=== PATIENT | female | born 1955 | race Caucasian/White ===

== ENCOUNTER → 2024-02-13 | Outpatient (CLI) | payer MEDICARE, MEDICAID, SELFPAY ==
[2024-02-13 16:27] LABS: OBS Card Expiration Date 2026-09; OBS Card Lot # 23001; OBS QC OK? Yes
[2024-02-13 20:34] LABS: OBS Developer Lot # 23003; OBS Performed By GGC; Occult Blood, Stool Negative (Negative); Occult Blood, Stool #2 Negative (Negative); Occult Blood, Stool #3 Negative (Negative)
== END | disposition home or self-care (01) ==
LOC: SLDO 16:19
PROVIDERS: PCP Physician Assistant; Referring Provider Physician Assistant; Visit Provider Physician Assistant
DX: Z12.11 Encounter for screening for malignant neoplasm of colon (principal)
CPT/HCPCS: 82270

== ENCOUNTER 2024-05-07 17:23 | Inpatient (IN) | payer MEDICARE, MEDICAID, SELFPAY ==
[2024-05-07] VITALS (18 sets, daily range): BP systolic 98–174; BP diastolic 60–135; PULSE 90–140; RESP 17–330; TEMP 36.6–37.2; O2SAT 93–100; BMI 21.8
--- NOTE | 2024-05-07 17:46 | XR_ITS ---
Examination: AP lateral soft tissue neck 2 views TECHNIQUE: AP lateral soft tissue neck 2 views Standing time: May 07, 2024 1757 hours INDICATIONS: Difficulty swallowing today FINDINGS: Normal epiglottis Prevertebral soft tissue is prominent at the C7 level, 18 mm No distention of hypopharynx No opaque foreign body Prominent cervicothoracic levoscoliosis IMPRESSION: Prominent prevertebral soft tissue Consider CT soft tissue neck post intravenous contrast follow-up
--- NOTE | 2024-05-07 17:46 | XR_ITS ---
Examination: AP and lateral chest 2 views TECHNIQUE: AP upright and lateral chest 2 views Presented time: May 07, 2024 1756 hours Comparison 01/04/2022. FINDINGS: Coughing and shortness of breath today. FINDINGS: Normal heart size No aspiration pneumonia Old fracture proximal right humerus No pulmonary edema IMPRESSION: Negative for aspiration pneumonia
--- NOTE | 2024-05-07 17:48 | PD.EDDENTL ---
ED Dental RME/HPI General Chief complaint: Dental/Oral/Throat Stated complaint: Choking on meat Time Seen by Provider: 05/07/24 17:38 Arrival date/time: 05/07/24 17:23 RME / HPI RME / HPI Narrative: 69-year-old female patient with significant history of mental retardation, was brought in by her caregiver for food gets stuck in the throat. Patient was eating dinner, swallowed a big piece of meat without chewing. Patient was noted to be choking, caregiver tried to do Heimlich maneuver, with no success. Currently patient is able to talk but with hoarseness of voice. Denies any coughing denies any vomiting denies any similar episode in the past medication was given prior to arrival. Related Data Home Medications ?Medication ?Instructions ?Recorded ?Confirmed calcium 600 mg (as carbonate)-vit 1 tab PO BID 10/06/17 05/31/21 D3 10 mcg (400 unit) chewable tablet (Calcium 600 with Vitamin D3) divalproex 500 mg tablet,extended 1,000 mg PO HS 10/06/17 05/31/21 release 24 hr mirtazapine 45 mg tablet 45 mg PO HS 10/06/17 05/31/21 alendronate 70 mg tablet 70 mg PO QWEEK 03/07/21 05/30/21 valbenazine 80 mg capsule 80 mg PO QDAY 03/07/21 05/31/21 (Ingrezza) docusate sodium 250 mg capsule 250 mg PO QDAY 05/30/21 05/31/21 quetiapine 300 mg tablet,extended 300 mg PO QPM 05/30/21 05/31/21 release 24 hr Previous Rx's ?Medication ?Instructions ?Recorded ondansetron 4 mg disintegrating 4 mg PO Q8H #10 tabs 12/31/21 tablet Allergies Allergy/AdvReac Type Severity Reaction Status Date / Time No Known Allergies Allergy Verified 08/02/21 13:29 Review of Systems Review of Systems Narrative Review of Systems: Review of system reviewed and within normal limits except mentioned in HPI ED Exam Narrative Physical exam: VITAL SIGNS: Reviewed. GENERAL APPEARANCE: Alert and interactive, follows commands, no acute distress, HEAD AND FACE: Non-traumatic. ENT: PERRL, pink conjunctivitis, eyelid no trauma, Mucous membrane moist. NECK: Supple, nontender, no nuchal rigidity. CHEST: No tenderness, no crepitus, no paradoxical movement, no retractions. LUNGS: Clear, well ventilated, symmetric, no rales, no wheezing, no ronchi, no stridor, good breath sounds bilaterally. HEART: Regular rate, regular rhythm, no murmur, no gallops. ABDOMEN: Soft, positive bowel sounds, nondistended, no guarding, nontender, no rebound, no masses, RECTAL: Deferred. GENITAL: Deferred. NEUROLOGICAL: Gross motor function intact sensory function intact, Appropriate for age. MUSCULOSKELETAL: low back nontender, full range of motion. EXTREMITIES: Nontender, full range of motion. SKIN: Color pink, dry, no rash, no lacerations, no abrasions, no contusions. LYMPHATICS: Deferred. Course Quality Measures none Orders Category Date Time Status Bedside COVID-19 Antigen Test NOW Care 05/07/24 20:00 Active COVID-19 Screening Questionnaire NOW Care 05/07/24 19:40 Active COVID-19 Screening Questionnaire NOW Care 05/07/24 21:48 Active Decision to Admit X1 Care 05/07/24 19:40 Completed Decision to Admit X1 Care 05/07/24 21:48 Active Endoscopy Consents .On arrival Care 05/07/24 20:26 Active NPO NOW Care 05/07/24 19:32 Active NPO NOW Care 05/07/24 20:26 Active Consult to Gastroenterology Stat Cons 05/07/24 18:42 Ordered Diet NPO (NOW) Diet 05/07/24 19:32 Completed Diet NPO (NOW) Diet 05/07/24 20:26 Active XR chest 2V Stat Exams 05/07/24 17:46 Completed XR soft tissue neck Stat Exams 05/07/24 17:46 Completed CBC [CBC] Stat Lab 05/07/24 18:10 Completed CMP [Comprehensive Metabolic Panel] Stat Lab 05/07/24 18:10 Completed PTT [Partial Thromboplastin Time] Stat Lab 05/07/24 18:10 Completed Diazepam Inj [Valium Inj] Med 05/07/24 19:39 Discontinued 5 mg IVP X1 ONE Glucagon Inj Med 05/07/24 17:46 Discontinued 2 mg IVP X1 ONE Metoclopramide Inj [Reglan Inj] Med 05/07/24 18:41 Discontinued 10 mg IVP X1 ONE Sodium Chloride 0.9% 1000 ml [Ns] 1,000 ml Med 05/07/24 17:47 Discontinued IV 999 mls/hr Vital Signs Vital signs: Vital Signs Temperature 98.7 F 05/07/24 17:38 Pulse Rate 115 H 05/07/24 17:38 Respiratory Rate 20 05/07/24 17:38 Blood Pressure 130/70 05/07/24 17:38 Pulse Oximetry (%) 93 L 05/07/24 17:38 Oxygen Delivery Method Room Air 05/07/24 17:38 Dental / Oral MDM Narrative MDM Narrative:: 69-year-old female patient with significant history of mental retardation, was brought in by her caregiver for food gets stuck in the throat. Patient was eating dinner, swallowed a big piece of meat without chewing. Patient was noted to be choking, caregiver tried to do Heimlich maneuver, with no success. Currently patient is able to talk but with hoarseness of voice. Denies any coughing denies any vomiting denies any similar episode in the past medication was given prior to arrival. Chest x-ray came back unremarkable. X-ray of the neck also showed Prominent prevertebral soft tissue Consider CT soft tissue neck post intravenous contrast follow-up. Laboratory workup came back normal. Patient received IV fluids, IV glucagon, and Valium, still not able to pass out liquid oral. I consulted Dr. Mcdonald, GI specialist, who will scope the patient tomorrow morning. Patient data External records reviewed:: None Clinical information provided by:: none Social determinants that could affect healthcare access:: none Patient has the following chronic illnesses:: History of mental retardation, schizophrenia, seizure disorder How is presenting disease/condition affected by chronic disease/condition?: exacerbated by Evaluation data The following diagnostics were reviewed and interpreted by me:: lab results and radiology exam(s) Lab and/or radiology exams considered but not ordered:: None Interpretation Summary: See results MDM Medications / Prescriptions Medications or Prescriptions considered but not ordered:: None Medication administrations:: Medication Administration History Discontinued Medications Diazepam (Diazepam Inj 5 Mg/Ml Vial 2 Ml) 5 mg IVP X1 ONE Stop: 05/07/24 19:40 Last Admin: 05/07/24 19:50 Dose: 5 mg Documented By: TC Glucagon (Glucagon Inj 1 Mg Vial) 2 mg IVP X1 ONE Stop: 05/07/24 17:47 Last Admin: 05/07/24 18:26 Dose: 2 mg Documented By: GM Sodium Chloride (Ns) 1,000 mls @ 999 mls/hr IV .Q1H1M ONE Stop: 05/07/24 18:47 Last Admin: 05/07/24 18:33 Dose: 999 mls/hr Documented By: GM Metoclopramide HCl (Metoclopramide Inj 5 Mg/Ml Vial 2 Ml) 10 mg IVP X1 ONE; Protocol Stop: 05/07/24 18:42 Last Admin: 05/07/24 19:30 Dose: 10 mg Documented By: TC None Consultations Consultation(s) initiated? (list below): No Diagnosis Dental Differential Diagnosis: other (Foreign body, esophagus, dysphagia, odynophagia) Most likely diagnosis given after review of the tests above:: Foreign body esophagus Admission Indicated Admission indicated?: indicated Explain why admission is indicated or not indicated:: Patient is to be admitted for endoscopic removal of foreign body in the esophagus Admission Request Was there a request for admission?: Yes Admission Attestation Admission request attestation: Discussed case with Hospitalist service regarding admission. Discussed patients ED course, exam findings, labs, and radiology results. The Hospitalist [agrees,] to accept the patient for admission. Disposition Plan Disposition Plan: Admit Discharge Plan Plan Patient Disposition: Admit Acute Care w/in Hospital Prescriptions/Referrals Prescriptions/Med Rec: No Action divalproex 500 mg Tablet Extended Release 24 Hr 1,000 mg PO HS mirtazapine 45 mg Tablet 45 mg PO HS Calcium 600 with Vitamin D3 600 mg(1,500mg) -400 unit Tablet,Chewable 1 tab PO BID docusate sodium 250 mg Capsule 250 mg PO QDAY quetiapine 300 mg Tablet Extended Release 24 Hr 300 mg PO QPM alendronate 70 mg Tablet 70 mg PO QWEEK Ingrezza 80 mg Capsule 80 mg PO QDAY ondansetron 4 mg tablet,disintegrating 4 mg PO Q8H Qty: 10 0RF Referrals: Dori Ruiz [Primary Care Provider] - In 1 week Problem List Clinical Impression: Esophageal foreign body Patient/Caregiver Discharge Instructions Print Language: Armenian Stand Alone Forms: Zenaida Award Info., Patient Portal Info Letter
--- NOTE | 2024-05-07 18:10 | PC.NURSE ---
PT COMING FROM [facility]; PER CAREGIVER, PT WAS EATING WHEN A PIECE OF MEAT GOT STUCK IN HER THROAT. PT HAS A LOT OF FOAM COMING OUT OF HER MOUTH AND DOES NOT SOUND CLEAR WHEN SHE TALKS; WHEN SHE TALKS, SHE SOUNDS CLEAR BUT NOW IT SOUNDS VERY GURGGLY. SHE TRIED TO DRINK SOMETHING TOO BUT IT CAME OUT LIKE A STREAM OUT OF HER MOUTH FOLLOWED WITH THE WHITE FOAM. PT HAS HX OF BEING DEVELOPMENTALLY DELAYED AND SCHIZOPHRENIA. PT CONNECTED TO MONITORS AT THIS TIME.
[2024-05-07] MEDS: GLUCAGON INJ 1 MG VIAL 2 MG IVP (18:26)
[2024-05-07] MEDS: SODIUM CHLORIDE 0.9% 1000 ML 1,000 ML 999 ML IV (18:33)
--- NOTE | 2024-05-07 18:41 | PC.NURSE ---
PT INITALLY SATTING TO 99% ON RA; AT THIS TIME, PT DESATTING TO 88% ON RA. Kristel EPSTEIN SUPERVISOR [employer]IPMENT AT BEDSIDE MADE AWARE AND GIVEN VERBAL ORDERS. PT PLACED ON OXY MASK AT 7L AND PT NOW SATTING IN 95%.
[2024-05-07 18:43] LABS: Basophils % (Auto) 0 % (0-2.5); Eosinophils # (Auto) 0.1 Thou/mm3 (0.0-0.5); Eosinophils % (Auto) 1 % (0-10); Hematocrit 44.6 % (36.0-46.0); Hemoglobin 14.7 g/dL (12.0-16.0); Immature Granulocytes % (Auto) 0 % (0-0); Immature Granulocytes Auto 0.02 Thou/mm3 (0.00-0.00); Lymphocytes # (Auto) 2.3 Thou/mm3 (1.0-4.8); Lymphocytes % (Auto) 31 % (10-50); Mean Corpuscular Hemoglobin 30.9 pg (25.0-35.0); Mean Corpuscular Volume 94 fL (80-100); Monocytes # (Auto) 0.6 Thou/mm3 (0.0-0.8); Monocytes % (Auto) 8 % (0-12); Neutrophils # (Auto) 4.4 Thou/mm3 (1.8-7.7); Neutrophils % (Auto) 60 % (37-80); Nucleated Red Blood Cell % 0 /100 WBC (0); Platelet Count 338 Thou/mm3 (140-440); RDW Standard Deviation 44.3 fL (36.4-46.3); Red Blood Count 4.76 Miln/mm3 (4.00-5.20); White Blood Count 7.4 Thou/mm3 (3.6-11.0)
[2024-05-07 19:00] LABS: Alanine Aminotransferase 13 U/L (10-49); Albumin, Serum 4.3 gm/dL (3.4-4.8); Albumin/Globulin Ratio 1.5 (1.2-2.2); Alkaline Phosphatase 88 U/L (46-116); Anion Gap 9 (7-16); Aspartate Amino Transferase 19 U/L (0-34); BUN/Creatinine Ratio 50 Ratio (12-20); Bilirubin,Total 0.3 mg/dL (0.3-1.2); Blood Urea Nitrogen 25 mg/dL (9-23); Calcium 9.9 mg/dL (8.3-10.6); Calcium (Corrected) 9.9 mg/dL (8.5-10.1); Carbon Dioxide 32.4 mMol/L (20.0-31.0); Chloride 100 mMol/L (98-107); Creatinine (Component) 0.5 mg/dL (0.6-1.3); Estimated Creatinine Clearance 64.7 mL/min (>60); Globulin 2.8 gm/dL (2.3-3.5); Glucose 118 mg/dL (74-106); Osmolality,Calculated 286 (275-295); Sodium 141 mMol/L (136-145); Total Protein 7.1 gm/dL (5.7-8.2); eGFR > 60 See Note
[2024-05-07 19:01] LABS: Partial Thromboplastin Time 25.7 Seconds (22.0-36.0)
[2024-05-07] MEDS: METOCLOPRAMIDE INJ 5 MG/ML VIAL 2 ML 10 MG IVP (19:30)
[2024-05-07] MEDS: DIAZEPAM INJ 5 MG/ML VIAL 2 ML IVP ×2 (19:50→22:58)
--- NOTE | 2024-05-07 20:22 | PD.IMCONS ---
HPI Consult Narrative Reason for consult: Foreign body obstruction esophagus History of present illness: 69 years old patient evaluated in the emergency room at the request of the SENIOR PRINCIPAL ARCHITECT physician speech language assistant Patient is mentally challenged and developmentally delayed According to manager image he choked on a piece of meat and having excessive salivation cc:: cc: Review of Systems Review of Systems ROS Unobtainable: unobtainable due to medical condition Past Medical History Surgical History OTHER SURGICAL HX: Mentally challenged Meds Home Medications and Allergies Home Medications ?Medication ?Instructions ?Recorded ?Confirmed ?Type calcium 600 mg (as carbonate)-vit 1 tab PO BID 10/06/17 05/31/21 History D3 10 mcg (400 unit) chewable tablet (Calcium 600 with Vitamin D3) divalproex 500 mg tablet,extended 1,000 mg PO HS 10/06/17 05/31/21 History release 24 hr mirtazapine 45 mg tablet 45 mg PO HS 10/06/17 05/31/21 History alendronate 70 mg tablet 70 mg PO QWEEK 03/07/21 05/30/21 History valbenazine 80 mg capsule 80 mg PO QDAY 03/07/21 05/31/21 History (Ingrezza) docusate sodium 250 mg capsule 250 mg PO QDAY 05/30/21 05/31/21 History quetiapine 300 mg tablet,extended 300 mg PO QPM 05/30/21 05/31/21 History release 24 hr Allergies Allergy/AdvReac Type Severity Reaction Status Date / Time No Known Allergies Allergy Verified 08/02/21 13:29 Exam Vital Signs Temp Pulse Resp BP Pulse Ox O2 Del Method O2 Flow Rate 99.0 F 113 H 30 H 113/65 97 Oxy Mask 7 05/07/24 18:34 05/07/24 20:00 05/07/24 20:00 05/07/24 20:00 05/07/24 20:00 05/07/24 20:00 05/07/24 18:42 FiO2 62 05/07/24 20:00 Routine Respiratory Exam Comments: Normal to auscultation Routine Abdominal Exam Comments: Soft nontender Results Labs 05/07/24 18:10 05/07/24 18:10 Labs: Short CBC 05/07/24 Range/Units 18:10 WBC 7.4 (3.6-11.0) Thou/mm3 Hgb 14.7 (12.0-16.0) g/dL Hct 44.6 (36.0-46.0) % Plt Count 338 (140-440) Thou/mm3 BMP 05/07/24 18:10 Sodium 141 Potassium 4.0 Chloride 100 Carbon Dioxide 32.4 H BUN 25 H Creatinine 0.5 L Glucose 118 H Calcium 9.9 Liver Function 05/07/24 Range/Units 18:10 Total Bilirubin 0.3 (0.3-1.2) mg/dL AST 19 (0-34) U/L ALT 13 (10-49) U/L Alkaline Phosphatase 88 (46-116) U/L Albumin 4.3 (3.4-4.8) gm/dL Assessment and Plan Additional Assessment & Plan Additional Plan: # Foreign body obstruction esophagus plan Fiberoptic esophagogastroduodenoscopy with possible therapeutic intervention under intravenous moderate sedation scheduled for a.m. Informed consent to be obtained from the appropriate authorities and it could be complicated because of the weekend N.p.o. midnight tonight We will follow the patient
--- NOTE | 2024-05-07 23:01 | PC.NURSE ---
Stephanie and I spoke with Mirtha Goodman @ [phone] with [facility] to obtain consent for EGD in the am with Dr Mdconald. Mirtha provided Dr. West Smith's phone number for any additional questions in the Am. His number is [phone] he is the supervising physician over the pt's care. Staff worker with [place] [phone] proivided additonal phone numbers. Heather Foster [phone] ([facility] Fraud Prevention Analyst for [place] [id number]) Will [phone] (materials assistant for [place] [address])
[2024-05-08] VITALS (39 sets, daily range): BP systolic 95–178; BP diastolic 57–148; PULSE 103–153; RESP 13–44; TEMP 36.6–39.2; O2SAT 89–100
--- NOTE | 2024-05-08 00:16 | PD.RESHP ---
Documentation for date of: 05/08/24 HPI History of Present Illness Chief complaint: Foreign body obstruction History of present illness: Patient is a 69-year-old female with past medical history significant for mild retardation, severe schizophrenia, Parkinson's disease, moderate impulse disorder, osteoporosis who presented to the ED after choking on her dinner. Patient was having her dinner at bedside, feeding herself and choked on a piece of meat. Patient was able to bring out the meat but before she spit it out, patient very swallowed the meat, and started gurgling white mucus, and could not bring out the meat again. Patient's caregiver, Stephen at bedside mentioned that patient has not had any choking episodes in the past or any abdominal pain. Patient's baseline is ANO x [address] Patient usually ambulates with a walker, and is able to perform most IADLs herself but requires assistance, such as feeding herself and bathing herself. Of note, patient uses false teeth when eating food. Patient denies any abdominal pain, chest pain, nausea/vomiting, or shortness of breath. Patient seen on oxy mask, saturating well. Past medical history: As mentioned above Past surgical history: None Meds: Patient takes alendronate 70 mg q. weekly on Fridays, calcium 600 mg twice daily, divalproex 500 mg ER at bedtime, docusate sodium 250 mg daily, quetiapine 150mg HS, Pramipexole .25mg BID, Mirtazepine 30mg HS, Benztropine 2mg BID, and Aspirin 81mg QD, source from patient's chart from her facility Allergies: NKDA Family history: Noncontributory Social history: Denies any smoking, alcohol, illicit drug use per patient's caregiver In the ED, patient presented with hemodynamically stable vitals except for elevated heart rate of 115 and low oxygen saturation on room air. Labs unremarkable. Imaging negative for aspiration pneumonia. Soft tissue neck x-ray showed prominent prevertebral soft tissue but normal epiglottitis with no opaque foreign body, prominent cervicothoracic levoscoliosis. In the ED, patient was given total of 10 mg of Valium due to patient being tachycardic and agitated. Dr. Mcdonald, GI was consulted and will have patient n.p.o. and perform endoscopy in the morning. Patient be admitted to telemetry for further management of foreign body obstruction. Review of Systems Review of Systems Systems Reviewed: All systems reviewed, normal except as documented Exam Vital Signs Temp Pulse Resp BP Pulse Ox O2 Del Method O2 Flow Rate 98.1 F 100 30 H 114/66 97 Oxy Mask 7 05/07/24 22:00 05/07/24 22:00 05/07/24 22:00 05/07/24 22:00 05/07/24 22:00 05/07/24 22:00 05/07/24 18:42 FiO2 62 05/07/24 22:00 Narrative Exam General Appearance: Pt in mild acute distress sitting upright in bed with oxy mask, saturating 100%. Elderly female, cachectic, with temporal wasting. HEENT: NC/AT, no scleral icterus, no conjunctival pallor Lungs: CTAB, no wheezes or crackles appreciated CVS: RRR, S1/S2 heard, no murmurs or rubs appreciated ABD: Soft, non-tender, non-distended, BS + EXT: no deformity/edema/lesions/cyanosis/clubbing, except for cervical scoliosis, pedal pulses felt bilaterally SKIN: Skin exam normal without any rashes. Neuro: A&O x [address]. No gross neurological deficits. Motor and sensory grossly intact in B/L UL and LL. Psych: Appropriate mood and affect Results: Labs 05/08/24 04:25 05/08/24 04:25 Labs: Short CBC 05/07/24 Range/Units 18:10 WBC 7.4 (3.6-11.0) Thou/mm3 Hgb 14.7 (12.0-16.0) g/dL Hct 44.6 (36.0-46.0) % Plt Count 338 (140-440) Thou/mm3 BMP 05/07/24 18:10 Sodium 141 Potassium 4.0 Chloride 100 Carbon Dioxide 32.4 H BUN 25 H Creatinine 0.5 L Glucose 118 H Calcium 9.9 Liver Function 05/07/24 Range/Units 18:10 Total Bilirubin 0.3 (0.3-1.2) mg/dL AST 19 (0-34) U/L ALT 13 (10-49) U/L Alkaline Phosphatase 88 (46-116) U/L Albumin 4.3 (3.4-4.8) gm/dL Quality Measures Quality Measures none Advance care planning discussed with:: patient Medications Home Medications and Allergies Home Medications ?Medication ?Instructions ?Recorded ?Confirmed ?Type calcium 600 mg (as carbonate)-vit 1 tab PO BID 10/06/17 05/31/21 History D3 10 mcg (400 unit) chewable tablet (Calcium 600 with Vitamin D3) divalproex 500 mg tablet,extended 1,000 mg PO HS 10/06/17 05/31/21 History release 24 hr mirtazapine 45 mg tablet 45 mg PO HS 10/06/17 05/31/21 History alendronate 70 mg tablet 70 mg PO QWEEK 03/07/21 05/30/21 History valbenazine 80 mg capsule 80 mg PO QDAY 03/07/21 05/31/21 History (Ingrezza) docusate sodium 250 mg capsule 250 mg PO QDAY 05/30/21 05/31/21 History quetiapine 300 mg tablet,extended 300 mg PO QPM 05/30/21 05/31/21 History release 24 hr Allergies Allergy/AdvReac Type Severity Reaction Status Date / Time No Known Allergies Allergy Verified 05/08/24 14:21 Visit Medications Heparin Sodium (Porcine) (Heparin Sod Inj 5000 Unit/Ml Vial) 5,000 unit SC Q12HR [facility] Stop: 05/21/24 23:44 Lactated Ringer's (Lactated Ringers) 1,000 mls @ 75 mls/hr IV .[id number] JONATHAN Stop: 05/08/24 13:04 Pantoprazole Sodium (Pantoprazole Inj 40 Mg Vial) 40 mg IVP QDAY JONATHAN Stop: 06/07/24 08:59 Discontinued Medications Diazepam (Diazepam Inj 5 Mg/Ml Vial 2 Ml) 5 mg IVP X1 ONE Stop: 05/07/24 19:40 Last Admin: 05/07/24 19:50 Dose: 5 mg Diazepam (Diazepam Inj 5 Mg/Ml Vial 2 Ml) 5 mg IVP X1 ONE Stop: 05/07/24 22:54 Last Admin: 05/07/24 22:58 Dose: 5 mg Glucagon (Glucagon Inj 1 Mg Vial) 2 mg IVP X1 ONE Stop: 05/07/24 17:47 Last Admin: 05/07/24 18:26 Dose: 2 mg Sodium Chloride (Ns) 1,000 mls @ 999 mls/hr IV .Q1H1M ONE Stop: 05/07/24 18:47 Last Infusion: 05/07/24 22:35 Dose: Infused Metoclopramide HCl (Metoclopramide Inj 5 Mg/Ml Vial 2 Ml) 10 mg IVP X1 ONE; Protocol Stop: 05/07/24 18:42 Last Admin: 05/07/24 19:30 Dose: 10 mg Assessment & Plan Plan Patient is a 69-year-old female with past medical history significant for mild retardation, severe schizophrenia, Parkinson's disease, moderate impulse disorder, osteoporosis who presented to the ED after choking on her dinner and admitted to telemetry for further management of foreign body obstruction. #Foreign body obstruction Patient was seen choking on her dinner, most likely piece of meat per her caregiver, and before patient fully brought up the meat, she is re-swallowed the meat piece. Patient continues to have unaccompanied cough and gargling. Patient is seen resting with her head and neck bent forward supported by a pillow to help with oxygen saturation. Obtain any consent from see [facility] and ask for officer on duty, . -Admitted to telemetry -On Oxy mask O2, wean as tolerated to support oxygen saturation above 90% -To help with agitation, will give IV Haldol and lieu of n.p.o. status and inability to swallow her p.o. meds at the moment due to her possible obstruction -ED consulted GI, and recommended n.p.o. status and endoscopy in the a.m. -IV maintenance fluids and IV PPI -N.p.o. -Recommend a sitter one-to-one to watch for patient's oxygen saturation and vital signs #Parkinson's disease Patient takes home benztropine 2 mg twice daily and pramipexole 0.25 twice daily -Will restart after EGD and clearance of any obstruction #Moderate impulse disorder Patient takes home divalproex 500 mg ER at bedtime -Will restart after EGD and clearance of any obstruction #Osteoporosis Patient takes home alendronate weekly on Fridays #Severe schizophrenia Patient takes home quetiapine and mirtazapine -Will restart after EGD and clearance of any obstruction #Mild retardation -Will restart after EGD and clearance of any obstruction Health Maintenance: DVT prophylaxis: Heparin subcu Diet: N.p.o. Knapp: No Lines: PIV Supplemental O2: Oxy mask CODE STATUS: Full code Disposition: Patient be admitted to telemetry for further management of foreign body obstruction. N.p.o. and EGD for a.m. Patient's plan and care discussed with my attending, Dr. Tahira Doll MD PGY-2 Attending Provider Attestation/Addendum I attest that I was physically present for the evaluation, physical examination, lab and imaging review of the patient with the residents. I discussed the case with the residents and agree with the findings and plans of care as documented above. Patient is a 69 years old female with past medical history of severe schizophrenia, mild retardation, Parkinson's disease, moderate impulse disorder, osteoporosis who presented to the ED after choking on a piece of meat. At bedside, patient appeared sleepy, and mild discomfort and oxygen mask with fluctuating saturation. As per her caregiver she is oriented x 2 only at her baseline. In the ED, her heart rate was 115, respiratory rate at 20 and blood pressure within normal limits. Dr. Mcdonald was contacted by the ED, who recommended admission for endoscopy and possible foreign body removal. We will admit patient to telemetry, continue with IV hydration, IV PPI. Patient did received diazepam 5 mg x 2 in the ED for agitation. We will add Haldol IV for further agitation. Continues to be on oxygen mask. We will keep patient n.p.o. until CT close for EGD. Plan to restart her home medications once cleared by GI. Jonathan Hoffmann MD
[2024-05-08] MEDS: RINGERS LACTATED 1000 ML 1,000 ML 75 ML IV (00:28)
[2024-05-08] MEDS: HEPARIN SOD INJ 5000 UNIT/ML VIAL SC ×3 (00:31→21:08)
[2024-05-08] MEDS: HALOPERIDOL LACT INJ 5 MG/ML VIAL IV ×2 (01:40→06:04)
[2024-05-08 04:49] LABS: Basophils % (Auto) 0 % (0-2.5); Eosinophils % (Auto) 0 % (0-10); Hematocrit 41.4 % (36.0-46.0); Hemoglobin 13.9 g/dL (12.0-16.0); Immature Granulocytes % (Auto) 1 % (0-0); Immature Granulocytes Auto 0.07 Thou/mm3 (0.00-0.00); Lymphocytes # (Auto) 0.9 Thou/mm3 (1.0-4.8); Lymphocytes % (Auto) 7 % (10-50); Mean Corpuscular HGB Conc 33.6 g/dl (31.0-37.0); Mean Corpuscular Hemoglobin 31.6 pg (25.0-35.0); Mean Corpuscular Volume 94 fL (80-100); Monocytes # (Auto) 1.3 Thou/mm3 (0.0-0.8); Monocytes % (Auto) 10 % (0-12); Neutrophils # (Auto) 11.6 Thou/mm3 (1.8-7.7); Neutrophils % (Auto) 83 % (37-80); Nucleated Red Blood Cell % 0 /100 WBC (0); Platelet Count 269 Thou/mm3 (140-440); White Blood Count 13.9 Thou/mm3 (3.6-11.0)
[2024-05-08 05:10] LABS: Alanine Aminotransferase 10 U/L (10-49); Albumin, Serum 3.7 gm/dL (3.4-4.8); Albumin/Globulin Ratio 1.5 (1.2-2.2); Alkaline Phosphatase 75 U/L (46-116); Anion Gap 9 (7-16); Aspartate Amino Transferase 23 U/L (0-34); BUN/Creatinine Ratio 36 Ratio (12-20); Bilirubin,Total 0.4 mg/dL (0.3-1.2); Blood Urea Nitrogen 18 mg/dL (9-23); Calcium 9.1 mg/dL (8.3-10.6); Calcium (Corrected) 9.3 mg/dL (8.5-10.1); Carbon Dioxide 27.3 mMol/L (20.0-31.0); Chloride 107 mMol/L (98-107); Creatinine (Component) 0.5 mg/dL (0.6-1.3); Estimated Creatinine Clearance 64.7 mL/min (>60); Globulin 2.4 gm/dL (2.3-3.5); Glucose 92 mg/dL (74-106); Magnesium 1.7 mg/dL (1.6-2.6); Osmolality,Calculated 286 (275-295); Potassium 3.7 mMol/L (3.4-5.1); Sodium 143 mMol/L (136-145); Total Protein 6.1 gm/dL (5.7-8.2); eGFR > 60 See Note
--- NOTE | 2024-05-08 07:55 | PC.NURSE ---
Called and i spoke to Dr. Horn to make her aware of Pt temp @102.5f and that I called sepsis alert, no new orders given to this nurse
[2024-05-08 09:36] LABS: Lactate (Lactic Acid) 1.3 mMol/L (0.4-2.0)
[2024-05-08] MEDS: PANTOPRAZOLE INJ 40 MG VIAL IVP (09:50)
[2024-05-08] MEDS: cefTRIAXone/D5w 1gm IV premix 50 ML IV (11:13)
[2024-05-08 11:24] LABS: Collection Type, Urine Clean Catch
[2024-05-08 11:34] LABS: Bacteria,Urine 4+; Bilirubin,Urine Negative (Negative); Blood,Urine 2+ (Negative); Glucose, Urine Negative (Negative); Ketones,Urine 1+ (Negative); Leukocyte Esterase,Urine Positive (Negative); Nitrite,Urine Positive (Negative); Protein,Urine 1+ (Neg - Trace); RBC,Urine 104 /hpf (0-3); Specific Gravity,Urine 1.019 (1.001-1.035); Squamous Epithelial Cell,Urine 7 /hpf (0-5); Urobilinogen,Urine Negative mg/dL (0.0-1.0); WBC,Urine 1907 /hpf (0-5)
[2024-05-08 11:35] LABS: Clarity,Urine Turbid (Clear/Hazy); Color,Urine Yellow (Lt Yel-Yel)
[2024-05-08 11:55] LABS: Influenza A Ag Negative; Influenza B Ag Negative
--- NOTE | 2024-05-08 12:12 | XR_ITS ---
Examination: CT soft tissue neck, with intravenous contrast. 2-D coronal reconstructions. 2-D sagittal reconstructions. Date and time of exam :May 08, 2024 1955 hrs. Indications: Difficulty swallowing today. CTDI: vol (mGy):7.52 DLP: (mGycm):149 Technique: 1.25 mm axial sections of the neck of the obtained. Coronal and sagittal reconstructions have been obtained. Intravenous contrast administered 60 cc [id number]. Low dose protocols were performed. One or more of the following dose reduction techniques were used; automated exposure control, adjustment of the mA and/or KV according to patient size, use of iterative reconstruction technique. Findings: Chronic maxillary sinus disease Symmetrical nasopharynx oropharynx Patient motion obscures scan detail Symmetrical submandibular glands The larynx appears normal Thyroid lobes are not enlarged Blanco of the cervical esophagus appeared thickened The epiglottis is unremarkable There is mild prevertebral soft tissue prominence at the C6-C7 levels Impression: Mild prevertebral soft tissue prominence at the C6-C7 levels Mild thickening of the blanco of the cervical esophagus Recommend elective standard fluoroscopically guided esophagram follow-up
--- NOTE | 2024-05-08 14:10 | SUR.PHASEI ---
1356 pt to pacu via karthik leija, pt drowsy arousable with tactile stimuli, will monitor
--- NOTE | 2024-05-08 14:17 | PD.RESPRO ---
Documentation for date of: 05/08/24 Subjective Subjective Interval history: Patient seen at bedside. She is a 69-year-old female with a past medical history of mild sedation, Parkinson's, osteoporosis and schizophrenia who was brought into the ED after choking on her dinner. Currently, she endorses some pain on swallowing. GI Dr. Mdconald was consulted, patient is n.p.o. for an upper endoscopy. While on admission, patient was noted to have a fever of 102 and tachycardic, sepsis alert was called and protocol initiated. Urinalysis returned positive for UTI with 1807 WBCs and 4+ bacteria. Patient is on IV fluids, ceftriaxone, pending blood and urine cultures. For dysphagia, will get speech therapy on board Exam Vital Signs Temp Pulse Resp BP Pulse Ox O2 Del Method O2 Flow Rate 97.9 F 107 H 20 113/63 98 Oxy Mask 4 05/08/24 13:56 05/08/24 14:11 05/08/24 14:11 05/08/24 14:11 05/08/24 14:11 05/08/24 12:00 05/08/24 14:11 FiO2 62 05/07/24 22:00 Narrative Exam General Appearance: AAOX2, head bent at neck, Oxy mask on, 7L of O2 HEENT: NC/AT, no scleral icterus, no conjunctival pallor Lungs: CTAB, no wheezes or crackles appreciated CVS: RRR, S1/S2 heard, no murmurs or rubs appreciated ABD: Soft, non-tender, non-distended, BS + EXT: no deformity/edema/lesions/cyanosis/clubbing, except for cervical scoliosis, pedal pulses felt bilaterally SKIN: Skin exam normal without any rashes. Neuro: A&O x [address]. No gross neurological deficits. Motor and sensory grossly intact in B/L UL and LL. Psych: Appropriate mood and affect Objective Labs 05/08/24 04:25 05/08/24 04:25 Labs: Laboratory Results - last 24 hr 05/07/24 05/08/24 05/08/24 18:10 04:25 09:20 WBC 7.4 13.9 H D RBC 4.76 4.40 Hgb 14.7 13.9 Hct 44.6 41.4 MCV 94 94 MCH 30.9 31.6 MCHC 33.0 33.6 RDW Std Deviation 44.3 45.0 Plt Count 338 269 D Neut % (Auto) 60 83 H Lymph % (Auto) 31 7 L [place] % (Auto) 8 10 Eos % (Auto) 1 0 Baso % (Auto) 0 0 Neut # (Auto) 4.4 11.6 H Lymph # (Auto) 2.3 0.9 L [place] # (Auto) 0.6 1.3 H Eos # (Auto) 0.1 0.0 Baso # (Auto) 0.0 0.0 Immature Gran # (Auto) 0.02 H 0.07 H Absolute Nucleated RBC 0.00 0.00 Immature Gran % 0 1 H Nucleated RBC % 0 0 APTT 25.7 Sodium 141 143 Potassium 4.0 3.7 Chloride 100 107 Carbon Dioxide 32.4 H 27.3 Anion Gap 9 9 BUN 25 H 18 Creatinine 0.5 L 0.5 L Estim Creat Clear Calc 64.7 64.7 eGFR > 60 > 60 BUN/Creatinine Ratio 50 H 36 H Glucose 118 H 92 Calculated Osmolality 286 286 Lactic Acid 1.3 Calcium 9.9 9.1 Corrected Calcium 9.9 9.3 Magnesium 1.7 Total Bilirubin 0.3 0.4 AST 19 23 ALT 13 10 Alkaline Phosphatase 88 75 Total Protein 7.1 6.1 Albumin 4.3 3.7 D Globulin 2.8 2.4 Albumin/Globulin Ratio 1.5 1.5 Ur Collection Type Urine Color Urine Clarity Urine pH Ur Specific [place] Urine Protein Urine Glucose (UA) Urine Ketones Urine Blood Urine Nitrite Urine Bilirubin Urine Urobilinogen (Auto) Ur Leukocyte Esterase Urine RBC Urine WBC Ur Squamous Epith Cells Urine Bacteria Influenza A (Rapid) Influenza B (Rapid) 05/08/24 05/08/24 10:15 10:30 WBC RBC Hgb Hct MCV MCH MCHC RDW Std Deviation Plt Count Neut % (Auto) Lymph % (Auto) [place] % (Auto) Eos % (Auto) Baso % (Auto) Neut # (Auto) Lymph # (Auto) [place] # (Auto) Eos # (Auto) Baso # (Auto) Immature Gran # (Auto) Absolute Nucleated RBC Immature Gran % Nucleated RBC % APTT Sodium Potassium Chloride Carbon Dioxide Anion Gap BUN Creatinine Estim Creat Clear Calc eGFR BUN/Creatinine Ratio Glucose Calculated Osmolality Lactic Acid Calcium Corrected Calcium Magnesium Total Bilirubin AST ALT Alkaline Phosphatase Total Protein Albumin Globulin Albumin/Globulin Ratio Ur Collection Type Clean Catch Urine Color Yellow Urine Clarity Turbid A Urine pH 6.0 Ur Specific [place] 1.019 Urine Protein 1+ A Urine Glucose (UA) Negative Urine Ketones 1+ A Urine Blood 2+ A Urine Nitrite Positive Urine Bilirubin Negative Urine Urobilinogen (Auto) Negative Ur Leukocyte Esterase Positive Urine RBC 104 H Urine WBC 1907 H Ur Squamous Epith Cells 7 H Urine Bacteria 4+ A Influenza A (Rapid) Negative Influenza B (Rapid) Negative Quality Measures Quality Measures none Advance care planning discussed with:: other Assessment & Plan Assessment Current Active Medications: Generic Name Dose Route Start Last Admin Trade Name Freq PRN Reason Stop Dose Admin Diphenhydramine HCl 25 mg 05/08/24 13:40 Diphenhydramine Inj 50 Mg/Ml Vial IV 05/08/24 15:40 [id number] PRN MODERATE SEDATION Fentanyl Citrate 25 mcg 05/08/24 13:40 Fentanyl Cit Inj 50 Mcg/Ml Amp 2ml IV 05/08/24 15:40 Q2M PRN MODERATE SEDATION Heparin Sodium (Porcine) 5,000 unit 05/07/24 23:45 05/08/24 09:50 Heparin Sod Inj 5000 Unit/Ml Vial SC 05/21/24 23:44 5,000 unit Q12HR JONATHAN Administration Acetaminophen 1,000 mg in 50 mls @ 125 mls/hr 05/08/24 08:37 Ofirmev Inj IV 05/11/24 08:36 Q6HR PRN Pain 1-3 or fever >100.3 Ceftriaxone Sodium/Dextrose 50 mls @ 100 mls/hr 05/08/24 10:21 05/08/24 11:13 Rocephin/D5w 1gm Iv Premix IV 05/15/24 10:20 100 mls/hr QDAY JONATHAN Administration Midazolam HCl 2 mg 05/08/24 13:40 Midazolam Inj 1 Mg/Ml Vial 2 Ml IV 05/08/24 15:40 Q2M PRN Moderate Sedation Pantoprazole Sodium 40 mg 05/08/24 09:00 05/08/24 09:50 Pantoprazole Inj 40 Mg Vial IVP 06/07/24 08:59 40 mg QDAY JONATHAN Administration Plan Summary: The patient is a 69-year-old female with past medical history significant for mild retardation, severe schizophrenia, Parkinson's disease, moderate impulse disorder, osteoporosis who presented to the ED after choking on her dinner and admitted to telemetry for further management of possible foreign body obstruction. #Sepsis secondary to UTI #Possible E. coli UTI Although the patient initially presented following body possible obstruction, while she was in the ED she was noted to have a fever of 102 and was tachycardic in the 140s. A sepsis alert was called and sepsis protocol was initiated. Repeat CBC showed an uptrending WBC of 13.9. Chest x-ray that was done on admission was negative but urinalysis showed WBC of 1907 and 4+ bacteria. Bedside influenza test negative. The patient was started on IV fluids and IV ceftriaxone, given IV Tylenol. Blood and urine cultures were ordered. Plan: -Continue IV fluids -Continue IV ceftriaxone -Blood and urine cultures pending -Continue to monitor CBC #Dysphagia #Foreign body obstruction-ruled out Patient was seen choking on her dinner, most likely piece of meat per her caregiver, and before patient fully brought up the meat, she is re-swallowed the meat piece. Patient continues to have unaccompanied cough and gargling. Patient is seen resting with her head and neck bent forward supported by a pillow to help with oxygen saturation. Obtain any consent from [facility] and ask for officer on duty, . On examination today, patient's complaint of painful swallowing, patient possibly has dysphagia as a complication of Parkinson's disease Plan: -GI Dr. Mcdonald consulted, patient is currently n.p.o. for upper endoscopy -IV maintenance fluids and IV PPI #Parkinson's disease Patient takes home benztropine 2 mg twice daily and pramipexole 0.25 twice daily -Will restart after EGD and clearance of any obstruction #Moderate impulse disorder Patient takes home divalproex 500 mg ER at bedtime -Will restart after EGD and clearance of any obstruction #Osteoporosis Patient takes home alendronate weekly on Fridays #Severe schizophrenia Patient takes home quetiapine and mirtazapine -Will restart after EGD and clearance of any obstruction #Mild retardation -Will restart after EGD and clearance of any obstruction Health Maintenance: DVT prophylaxis: Heparin subcu Diet: N.p.o. [place]: No Lines: PIV Supplemental O2: Oxy mask CODE STATUS: Full code Disposition: Patient be admitted to telemetry for further management of foreign body obstruction. N.p.o. and EGD for a.m. Case was discussed with attending physician, Dr Bill Horn MD PGY-1
--- NOTE | 2024-05-08 14:30 | SUR.PHASEI ---
pt to telemetry in stable condition report to Janki BUCIO
[2024-05-09] VITALS (12 sets, daily range): BP systolic 127–144; BP diastolic 72–87; PULSE 19–123; RESP 16–32; TEMP 36.8–37.2; O2SAT 94–100; BMI 20.7
[2024-05-09 06:00] LABS: Basophils # (Auto) 0.1 Thou/mm3 (0.0-0.2); Basophils % (Auto) 0 % (0-2.5); Eosinophils % (Auto) 0 % (0-10); Hematocrit 39.7 % (36.0-46.0); Hemoglobin 12.8 g/dL (12.0-16.0); Immature Granulocytes % (Auto) 1 % (0-0); Immature Granulocytes Auto 0.21 Thou/mm3 (0.00-0.00); Lymphocytes # (Auto) 1.7 Thou/mm3 (1.0-4.8); Lymphocytes % (Auto) 7 % (10-50); Mean Corpuscular HGB Conc 32.2 g/dl (31.0-37.0); Mean Corpuscular Hemoglobin 31.2 pg (25.0-35.0); Mean Corpuscular Volume 97 fL (80-100); Monocytes # (Auto) 1.7 Thou/mm3 (0.0-0.8); Monocytes % (Auto) 7 % (0-12); Neutrophils % (Auto) 85 % (37-80); Nucleated Red Blood Cell % 0 /100 WBC (0); Platelet Count 237 Thou/mm3 (140-440); RDW Standard Deviation 47.2 fL (36.4-46.3); White Blood Count 24.7 Thou/mm3 (3.6-11.0)
[2024-05-09 06:32] LABS: Alanine Aminotransferase 22 U/L (10-49); Albumin, Serum 3.4 gm/dL (3.4-4.8); Albumin/Globulin Ratio 1.3 (1.2-2.2); Alkaline Phosphatase 81 U/L (46-116); Anion Gap 14 (7-16); Aspartate Amino Transferase 39 U/L (0-34); BUN/Creatinine Ratio 40 Ratio (12-20); Bilirubin,Total 0.5 mg/dL (0.3-1.2); Blood Urea Nitrogen 20 mg/dL (9-23); Calcium 8.9 mg/dL (8.3-10.6); Calcium (Corrected) 9.4 mg/dL (8.5-10.1); Carbon Dioxide 24.1 mMol/L (20.0-31.0); Chloride 104 mMol/L (98-107); Creatinine (Component) 0.5 mg/dL (0.6-1.3); Estimated Creatinine Clearance 64.7 mL/min (>60); Globulin 2.6 gm/dL (2.3-3.5); Glucose 73 mg/dL (74-106); Magnesium 1.9 mg/dL (1.6-2.6); Osmolality,Calculated 284 (275-295); Potassium 3.3 mMol/L (3.4-5.1); Sodium 142 mMol/L (136-145); eGFR > 60 See Note
[2024-05-09] MEDS: PANTOPRAZOLE INJ 40 MG VIAL IVP (08:06)
[2024-05-09] MEDS: cefTRIAXone/D5w 1gm IV premix 50 ML IV (08:06)
[2024-05-09] MEDS: HEPARIN SOD INJ 5000 UNIT/ML VIAL SC ×2 (08:07→21:36)
[2024-05-09 10:14] LABS: Phosphorous 2.5 mg/dL (2.4-5.1)
--- NOTE | 2024-05-09 10:57 | XR_ITS ---
Examination: AP chest single view Technique: AP portable semiupright chest single view Exam date and time: May 09, 2024 11:22 PM Indications: Shortness of breath today Findings: Bilateral perihilar bibasilar pneumonia Normal heart size Prominent osteopenia Old fracture left clavicle Impression: Significant bilateral pneumonia
[2024-05-09] MEDS: BENZTROPINE 0.5 MG TABLET 2 MG PO ×2 (11:01→21:39)
[2024-05-09 11:33] LABS: Basophils # (Auto) 0.1 Thou/mm3 (0.0-0.2); Basophils % (Auto) 0 % (0-2.5); Eosinophils % (Auto) 0 % (0-10); Hematocrit 39.5 % (36.0-46.0); Hemoglobin 13.1 g/dL (12.0-16.0); Immature Granulocytes % (Auto) 1 % (0-0); Immature Granulocytes Auto 0.13 Thou/mm3 (0.00-0.00); Lymphocytes # (Auto) 1.4 Thou/mm3 (1.0-4.8); Lymphocytes % (Auto) 6 % (10-50); Mean Corpuscular HGB Conc 33.2 g/dl (31.0-37.0); Mean Corpuscular Volume 94 fL (80-100); Monocytes # (Auto) 1.3 Thou/mm3 (0.0-0.8); Monocytes % (Auto) 6 % (0-12); Neutrophils # (Auto) 19.7 Thou/mm3 (1.8-7.7); Neutrophils % (Auto) 87 % (37-80); Nucleated Red Blood Cell % 0 /100 WBC (0); Platelet Count 222 Thou/mm3 (140-440); RDW Standard Deviation 44.6 fL (36.4-46.3); Red Blood Count 4.22 Miln/mm3 (4.00-5.20); White Blood Count 22.6 Thou/mm3 (3.6-11.0)
[2024-05-09] MEDS: POTASSIUM CHLORIDE 10% 20 MEQ/15 ML UDC 40 MEQ PO (11:46)
--- NOTE | 2024-05-09 12:39 | ESPR_ITS ---
Documentation for date of: 05/09/24 Subjective Subjective Interval history: Patient seen at bedside. No acute overnight events. Patient reports difficulty/painful swallowing has improved, but still has mild pain. She was also reported to have been coughing and desatting which bumped up her oxygen requirements. As we suspect possible aspiration, will make patient n.p.o. except for medications and do a modified barium swallow with IR when available. Labs and vitals reviewed, downtrending leukocytosis. She is on IV ceftriaxone for UTI. Pending blood and urine cultures. Exam Vital Signs Temp Pulse Resp BP Pulse Ox O2 Del Method O2 Flow Rate 98.9 F 111 H 20 130/78 99 Oxy Mask 3 05/09/24 07:56 05/09/24 08:20 05/09/24 08:20 05/09/24 07:56 05/09/24 08:20 05/09/24 07:56 05/09/24 08:20 FiO2 62 05/09/24 08:20 Narrative Exam General Appearance: AAOX2, head bent at neck, Oxy mask on, 3L of O2 HEENT: NC/AT, no scleral icterus, no conjunctival pallor Lungs: CTAB, no wheezes or crackles appreciated CVS: RRR, S1/S2 heard, no murmurs or rubs appreciated ABD: Soft, non-tender, non-distended, BS + EXT: no deformity/edema/lesions/cyanosis/clubbing, except for cervical scoliosis, pedal pulses felt bilaterally SKIN: Skin exam normal without any rashes. Neuro: A&O x [address]. No gross neurological deficits. Motor and sensory grossly intact in B/L UL and LL. Psych: Appropriate mood and affect Objective Labs 05/09/24 11:20 05/09/24 05:05 Labs: Laboratory Results - last 24 hr 05/09/24 05/09/24 05:05 11:20 WBC 24.7 H D 22.6 H RBC 4.10 4.22 Hgb 12.8 13.1 Hct 39.7 39.5 MCV 97 94 MCH 31.2 31.0 MCHC 32.2 33.2 RDW Std Deviation 47.2 H 44.6 Plt Count 237 D 222 Neut % (Auto) 85 H 87 H Lymph % (Auto) 7 L 6 L [place] % (Auto) 7 6 Eos % (Auto) 0 0 Baso % (Auto) 0 0 Neut # (Auto) 21.0 H 19.7 H Lymph # (Auto) 1.7 1.4 [place] # (Auto) 1.7 H 1.3 H Eos # (Auto) 0.0 0.0 Baso # (Auto) 0.1 0.1 Immature Gran # (Auto) 0.21 H 0.13 H Absolute Nucleated RBC 0.00 0.00 Immature Gran % 1 H 1 H Nucleated RBC % 0 0 Sodium 142 Potassium 3.3 L Chloride 104 Carbon Dioxide 24.1 Anion Gap 14 BUN 20 Creatinine 0.5 L Estim Creat Clear Calc 64.7 eGFR > 60 BUN/Creatinine Ratio 40 H Glucose 73 L Calculated Osmolality 284 Calcium 8.9 Corrected Calcium 9.4 Phosphorus 2.5 Magnesium 1.9 Total Bilirubin 0.5 AST 39 H ALT 22 Alkaline Phosphatase 81 Total Protein 6.0 Albumin 3.4 Globulin 2.6 Albumin/Globulin Ratio 1.3 Quality Measures Quality Measures none Advance care planning discussed with:: other Assessment & Plan Assessment Current Active Medications: Generic Name Dose Route Start Last Admin Trade Name Freq PRN Reason Stop Dose Admin Aspirin 81 mg 05/09/24 10:45 Aspirin 81 Mg Chew PO 06/08/24 10:44 .AM JONATHAN Benztropine Mesylate 2 mg 05/09/24 10:45 05/09/24 11:01 Benztropine 0.5 Mg Tablet PO 06/08/24 10:44 2 mg BID JONATHAN Administration Divalproex Sodium 500 mg 05/09/24 21:00 Divalproex Sod Er 250 Mg Daphne (Non-Formulary) PO 06/08/24 20:59 HS JONATHAN Heparin Sodium (Porcine) 5,000 unit 05/07/24 23:45 05/09/24 08:07 Heparin Sod Inj 5000 Unit/Ml Vial SC 05/21/24 23:44 5,000 unit Q12HR JONATHAN Administration Acetaminophen 1,000 mg in 50 mls @ 125 mls/hr 05/08/24 08:37 Ofirmev Inj IV 05/11/24 08:36 Q6HR PRN Pain 1-3 or fever >100.3 Ceftriaxone Sodium/Dextrose 50 mls @ 100 mls/hr 05/08/24 10:21 05/09/24 09:05 Rocephin/D5w 1gm Iv Premix IV 05/15/24 10:20 Infused QDAY [facility] Infusion Pantoprazole Sodium 40 mg 05/08/24 09:00 05/09/24 08:06 Pantoprazole Inj 40 Mg Vial IVP 06/07/24 08:59 40 mg QDAY JONATHAN Administration Pramipexole Dihydrochloride 0.25 mg 05/09/24 21:00 Pramipexole 0.25 Mg Tablet PO 06/08/24 20:59 HS JONATHAN Quetiapine Fumarate 150 mg 05/09/24 21:00 Quetiapine Fumarate 100 Mg Tablet PO 06/08/24 20:59 HS JONATHAN Plan Summary: The patient is a 69-year-old female with past medical history significant for mild retardation, severe schizophrenia, Parkinson's disease, moderate impulse disorder, osteoporosis who presented to the ED after choking on her dinner and admitted to telemetry for further management of possible foreign body obstruction. #Sepsis secondary to UTI #Possible E. coli UTI Although the patient initially presented following body possible obstruction, while she was in the ED she was noted to have a fever of 102 and was tachycardic in the 140s. A sepsis alert was called and sepsis protocol was initiated. Repeat CBC showed an uptrending WBC of 13.9. Chest x-ray that was done on admission was negative but urinalysis showed WBC of 1907 and 4+ bacteria. Bedside influenza test negative. The patient was started on IV fluids and IV ceftriaxone, given IV Tylenol. Blood and urine cultures were ordered. 05/09/2024-patient has remained fever free for the past 24 hours. Currently on IV ceftriaxone. Pending blood and urine cultures. Plan: -Continue IV fluids -Continue IV ceftriaxone -Blood and urine cultures pending -Continue to monitor CBC #Dysphagia #Foreign body obstruction-ruled out Patient was seen choking on her dinner, most likely piece of meat per her caregiver, and before patient fully brought up the meat, she is re-swallowed the meat piece. Patient continues to have unaccompanied cough and gargling. Patient is seen resting with her head and neck bent forward supported by a pillow to help with oxygen saturation. Obtain any consent from see [facility] and ask for officer on duty, . On examination today, patient's complaint of painful swallowing, patient possibly has dysphagia as a complication of Parkinson's disease 05/09/2024-although oxygen requirements are intermittently improving, patient was reported to have been coughing and desatting which bumped them up slightly. Due to concern of aspiration, make patient n.p.o. and do modified barium swallow with IR once available. Patient did have upper endoscopy done yesterday, follow up one report. Plan: -N.p.o. -Modified barium swallow -IV maintenance fluids and IV PPI #Parkinson's disease Patient takes home benztropine 2 mg twice daily and pramipexole 0.25 twice daily -Restarted home meds #Moderate impulse disorder Patient takes home divalproex 500 mg ER at bedtime -Restarted home meds n #Osteoporosis Patient takes home alendronate weekly on Fridays #Severe schizophrenia Patient takes home quetiapine and mirtazapine -Will hold mirtazapine Health Maintenance: DVT prophylaxis: SC Heparin Diet: N.p.o. [place]: No Lines: PIV Supplemental O2: Oxy mask CODE STATUS: Full code Disposition: Patient be admitted to telemetry for further management of foreign body obstruction and sepsis secondary to UTI Case was discussed with attending physician, Dr Bill Horn MD PGY-1
--- NOTE | 2024-05-09 14:44 | PD.IMPROG ---
Documentation for date of: 05/09/24 Subjective Subjective Interval history: Patient evaluated patient status post endoscopic removal of a large Foreign body in the proximal esophagus Exam Vital Signs Temp Pulse Resp BP Pulse Ox O2 Del Method O2 Flow Rate 98.9 F 120 H 23 H 140/77 H 95 Oxy Mask 3 05/09/24 12:00 05/09/24 12:00 05/09/24 12:00 05/09/24 12:00 05/09/24 12:00 05/09/24 12:00 05/09/24 12:00 FiO2 62 05/09/24 12:00 Objective Labs 05/09/24 11:20 05/09/24 05:05 Labs: Laboratory Results - last 24 hr 05/09/24 05/09/24 05:05 11:20 WBC 24.7 H D 22.6 H RBC 4.10 4.22 Hgb 12.8 13.1 Hct 39.7 39.5 MCV 97 94 MCH 31.2 31.0 MCHC 32.2 33.2 RDW Std Deviation 47.2 H 44.6 Plt Count 237 D 222 Neut % (Auto) 85 H 87 H Lymph % (Auto) 7 L 6 L [place] % (Auto) 7 6 Eos % (Auto) 0 0 Baso % (Auto) 0 0 Neut # (Auto) 21.0 H 19.7 H Lymph # (Auto) 1.7 1.4 [place] # (Auto) 1.7 H 1.3 H Eos # (Auto) 0.0 0.0 Baso # (Auto) 0.1 0.1 Immature Gran # (Auto) 0.21 H 0.13 H Absolute Nucleated RBC 0.00 0.00 Immature Gran % 1 H 1 H Nucleated RBC % 0 0 Sodium 142 Potassium 3.3 L Chloride 104 Carbon Dioxide 24.1 Anion Gap 14 BUN 20 Creatinine 0.5 L Estim Creat Clear Calc 64.7 eGFR > 60 BUN/Creatinine Ratio 40 H Glucose 73 L Calculated Osmolality 284 Calcium 8.9 Corrected Calcium 9.4 Phosphorus 2.5 Magnesium 1.9 Total Bilirubin 0.5 AST 39 H ALT 22 Alkaline Phosphatase 81 Total Protein 6.0 Albumin 3.4 Globulin 2.6 Albumin/Globulin Ratio 1.3 Impressions Impression: # Foreign body proximal esophagus status post endoscopic removal Okay to discharge from a GI viewpoint Assessment & Plan A&P Narrative # Foreign body obstruction esophagus plan Fiberoptic esophagogastroduodenoscopy with possible therapeutic intervention under intravenous moderate sedation scheduled for a.m. Informed consent to be obtained from the appropriate authorities and it could be complicated because of the weekend N.p.o. midnight tonight We will follow the patient Time Spent With Patient Time: Total time spent is greater than 50% in coordination of care (as documented) at patient's floor/unit and/or counseling patient:
[2024-05-09] MEDS: AZITHROMYCIN INJ 500 MG in SODIUM CHLORIDE 0.9% 250 ML 250 ML 250 MG IV (17:45)
[2024-05-09] MEDS: PRAMIPEXOLE 0.25 MG TABLET PO (21:39)
[2024-05-09] MEDS: QUEtiapine FUMARATE 100 MG TABLET 150 MG PO (21:40)
[2024-05-09] MEDS: DIVALPROEX SOD ER 250 MG TABER (NON-FORMULARY) 500 MG PO (21:41)
[2024-05-10] VITALS (7 sets, daily range): BP systolic 124–159; BP diastolic 71–92; PULSE 71–112; RESP 12–24; TEMP 36.1–36.6; O2SAT 97–100; BMI 21.9
--- NOTE | 2024-05-10 00:38 | PC.NURSE ---
component technician called that patient's HR in the 130s. Patient's HR went up as high as 137. MD Zafar notified. No new orders given. said continue to monitor
[2024-05-10] MEDS: ACETAMINOPHEN 125 MG IV (03:40)
[2024-05-10 06:19] LABS: Basophils % (Auto) 0 % (0-2.5); Eosinophils # (Auto) 0.1 Thou/mm3 (0.0-0.5); Eosinophils % (Auto) 1 % (0-10); Hematocrit 34.7 % (36.0-46.0); Hemoglobin 11.2 g/dL (12.0-16.0); Immature Granulocytes % (Auto) 1 % (0-0); Immature Granulocytes Auto 0.07 Thou/mm3 (0.00-0.00); Lymphocytes # (Auto) 1.9 Thou/mm3 (1.0-4.8); Lymphocytes % (Auto) 14 % (10-50); Mean Corpuscular HGB Conc 32.3 g/dl (31.0-37.0); Mean Corpuscular Hemoglobin 31.2 pg (25.0-35.0); Mean Corpuscular Volume 97 fL (80-100); Monocytes % (Auto) 7 % (0-12); Neutrophils # (Auto) 10.7 Thou/mm3 (1.8-7.7); Neutrophils % (Auto) 78 % (37-80); Nucleated Red Blood Cell % 0 /100 WBC (0); Platelet Count 201 Thou/mm3 (140-440); RDW Standard Deviation 46.2 fL (36.4-46.3); Red Blood Count 3.59 Miln/mm3 (4.00-5.20); White Blood Count 13.8 Thou/mm3 (3.6-11.0)
[2024-05-10 06:45] LABS: Alanine Aminotransferase 22 U/L (10-49); Albumin, Serum 3.3 gm/dL (3.4-4.8); Albumin/Globulin Ratio 1.4 (1.2-2.2); Alkaline Phosphatase 80 U/L (46-116); Anion Gap 8 (7-16); Aspartate Amino Transferase 20 U/L (0-34); BUN/Creatinine Ratio 57 Ratio (12-20); Bilirubin,Total 0.4 mg/dL (0.3-1.2); Blood Urea Nitrogen 17 mg/dL (9-23); Calcium (Corrected) 9.6 mg/dL (8.5-10.1); Carbon Dioxide 29.2 mMol/L (20.0-31.0); Chloride 106 mMol/L (98-107); Creatinine (Component) 0.3 mg/dL (0.6-1.3); Estimated Creatinine Clearance 107.8 mL/min (>60); Globulin 2.3 gm/dL (2.3-3.5); Glucose 89 mg/dL (74-106); Magnesium 1.9 mg/dL (1.6-2.6); Osmolality,Calculated 285 (275-295); Potassium 3.6 mMol/L (3.4-5.1); Sodium 143 mMol/L (136-145); Total Protein 5.6 gm/dL (5.7-8.2); eGFR > 60 See Note
[2024-05-10] MEDS: cefTRIAXone/D5w 1gm IV premix 50 ML IV (08:41)
[2024-05-10] MEDS: BENZTROPINE 0.5 MG TABLET 2 MG PO ×2 (08:42→21:14)
[2024-05-10] MEDS: PANTOPRAZOLE INJ 40 MG VIAL IVP (08:42)
[2024-05-10] MEDS: HEPARIN SOD INJ 5000 UNIT/ML VIAL SC ×2 (08:54→21:13)
--- NOTE | 2024-05-10 09:49 | XR_ITS ---
Examination: Esophagram standard 24 spot fluoroscopic films of the esophagus Fluoroscopy Exam date and time: May 10, 2024 at 1055 hours INDICATION: Diagnosis foreign body 2 days, difficulty swallowing TECHNIQUE AND FINDINGS: Registered Nurse First Assistant AP chest single view Patient swallowed thin barium with 24 spot fluoroscopic films of the esophagus Fluoroscopy 0.5 minutes radiation dose 21.80 milligray Limited cooperation Primary peristaltic esophageal waves No esophageal obstruction IMPRESSION: Limited study No esophageal obstruction
--- NOTE | 2024-05-10 10:49 | ESPR_ITS ---
Documentation for date of: 05/10/24 Subjective Subjective Interval history: Patient evaluated Patient status post removal of the foreign body from the esophagus No more dysphagia Exam Vital Signs Temp Pulse Resp BP Pulse Ox O2 Del Method O2 Flow Rate 97.9 F 112 H 24 H 124/71 97 Oxy Mask 3 05/10/24 08:00 05/10/24 09:18 05/10/24 09:18 05/10/24 08:00 05/10/24 09:18 05/10/24 08:00 05/10/24 09:18 FiO2 62 05/09/24 15:58 Objective Labs 05/10/24 05:34 05/10/24 05:34 Labs: Laboratory Results - last 24 hr 05/09/24 05/10/24 11:20 05:34 WBC 22.6 H 13.8 H D RBC 4.22 3.59 L Hgb 13.1 11.2 L Hct 39.5 34.7 L MCV 94 97 MCH 31.0 31.2 MCHC 33.2 32.3 RDW Std Deviation 44.6 46.2 Plt Count 222 201 Neut % (Auto) 87 H 78 Lymph % (Auto) 6 L 14 [place] % (Auto) 6 7 Eos % (Auto) 0 1 Baso % (Auto) 0 0 Neut # (Auto) 19.7 H 10.7 H Lymph # (Auto) 1.4 1.9 [place] # (Auto) 1.3 H 1.0 H Eos # (Auto) 0.0 0.1 Baso # (Auto) 0.1 0.0 Immature Gran # (Auto) 0.13 H 0.07 H Absolute Nucleated RBC 0.00 0.00 Immature Gran % 1 H 1 H Nucleated RBC % 0 0 Sodium 143 Potassium 3.6 Chloride 106 Carbon Dioxide 29.2 Anion Gap 8 BUN 17 Creatinine 0.3 L Estim Creat Clear Calc 107.8 eGFR > 60 BUN/Creatinine Ratio 57 H Glucose 89 Calculated Osmolality 285 Calcium 9.0 Corrected Calcium 9.6 Magnesium 1.9 Total Bilirubin 0.4 AST 20 ALT 22 Alkaline Phosphatase 80 Total Protein 5.6 L Albumin 3.3 L Globulin 2.3 Albumin/Globulin Ratio 1.4 Impressions Impression: # Status post removal of the foreign body from the esophagus doing well Continue current management Assessment & Plan A&P Narrative # Foreign body obstruction esophagus plan Fiberoptic esophagogastroduodenoscopy with possible therapeutic intervention under intravenous moderate sedation scheduled for a.m. Informed consent to be obtained from the appropriate authorities and it could be complicated because of the weekend N.p.o. midnight tonight We will follow the patient Time Spent With Patient Time: Total time spent is greater than 50% in coordination of care (as documented) at patient's floor/unit and/or counseling patient:
--- NOTE | 2024-05-10 12:12 | PC.SS ---
Patient is devel. delayed and resides at a residential long term. She has 24 hour care. SS spoke to [facility] non destructive evaluation manager in regards to her history. No family involved. Patient has been residing at residential long term for the last 13 years. She is not conserved but [facility] makes all her healthcare decisions. Patient was admitted for a foreign body obstruction. Patient has history of Schizophrenia and Parkinson's. Patient follows up with Dr. Narayanan @ [facility] for psychiatry. Patient baseline is independent with ADL's. She has a wheelchair and walker that she uses as needed. Patient is involved in a day program , M-F and they provide their own transportation. Patient [facility] also provides transportation as well. Patient follows at [facility] for her PCP. Her last appt. was in January. Discharge plan is to return back to [facility]. Patient [facility] is [facility].
[2024-05-10] MEDS: AZITHROMYCIN INJ 500 MG in SODIUM CHLORIDE 0.9% 250 ML 250 ML 250 MG IV (14:47)
--- NOTE | 2024-05-10 16:49 | PD.RESPRO ---
Documentation for date of: 05/10/24 Subjective Subjective Interval history: Patient seen at bedside. No acute overnight events. Patient reports complete resolution of pain on swallowing since EGD and foreign body retrieval Azithromycin was started yesterday to cover for aspiration. Labs and vitals reviewed, downtrending leukocytosis. Will continue IV ceftriaxone for UTI. Pending final blood and urine cultures. Modified barium swallow XR esophagogram showed normal study. Speech cleared patient for dysphagia 2 diet, will order to start now. Exam Vital Signs Temp Pulse Resp BP Pulse Ox O2 Del Method O2 Flow Rate 97.1 F 83 13 153/83 H 100 Nasal Cannula 3 05/10/24 12:00 05/10/24 12:00 05/10/24 12:00 05/10/24 12:00 05/10/24 12:00 05/10/24 12:05/10/24 12:00 FiO2 62 05/09/24 15:58 Narrative Exam Constitutional Alert, oriented x2 (baseline). On 2L oxygen via oxymask HEENT Vision grossly intact. Patent nares. Trachea midline. Respiratory Chest normal on inspection and clear to auscultation bilaterally. Cardiovascular S1 and S2 audible, RRR. No murmurs or carotid bruit. No gross JVD. Abdominal Soft and non tender to palpation in all quadrants. BS + Genitourinary No bladder tenderness, no flank pain. Normal to palpation. Musculoskeletal Extremities tone within normal limits. No LE edema. Neurological CN II - XII grossly intact. Extremity motor and sensation grossly intact. Skin Warm, dry and intact. No apparent lesions. Psychiatric Patient has a good affect, is cooperative. Objective Labs 05/10/24 05:34 05/10/24 05:34 Labs: Laboratory Results - last 24 hr 05/10/24 05:34 WBC 13.8 H D RBC 3.59 L Hgb 11.2 L Hct 34.7 L MCV 97 MCH 31.2 MCHC 32.3 RDW Std Deviation 46.2 Plt Count 201 Neut % (Auto) 78 Lymph % (Auto) 14 [place] % (Auto) 7 Eos % (Auto) 1 Baso % (Auto) 0 Neut # (Auto) 10.7 H Lymph # (Auto) 1.9 [place] # (Auto) 1.0 H Eos # (Auto) 0.1 Baso # (Auto) 0.0 Immature Gran # (Auto) 0.07 H Absolute Nucleated RBC 0.00 Immature Gran % 1 H Nucleated RBC % 0 Sodium 143 Potassium 3.6 Chloride 106 Carbon Dioxide 29.2 Anion Gap 8 BUN 17 Creatinine 0.3 L Estim Creat Clear Calc 107.8 eGFR > 60 BUN/Creatinine Ratio 57 H Glucose 89 Calculated Osmolality 285 Calcium 9.0 Corrected Calcium 9.6 Magnesium 1.9 Total Bilirubin 0.4 AST 20 ALT 22 Alkaline Phosphatase 80 Total Protein 5.6 L Albumin 3.3 L Globulin 2.3 Albumin/Globulin Ratio 1.4 Quality Measures Quality Measures none Advance care planning discussed with:: patient Assessment & Plan Assessment Current Active Medications: Generic Name Dose Route Start Last Admin Trade Name Freq PRN Reason Stop Dose Admin Aspirin 81 mg 05/09/24 10:45 Aspirin 81 Mg Chew PO 06/08/24 10:44 .AM JONATHAN Benztropine Mesylate 2 mg 05/09/24 10:45 05/10/24 08:42 Benztropine 0.5 Mg Tablet PO 06/08/24 10:44 2 mg BID JONATHAN Administration Divalproex Sodium 500 mg 05/09/24 21:00 05/09/24 21:41 Divalproex Sod Er 250 Mg Daphne (Non-Formulary) PO 06/08/24 20:59 500 mg HS JONATHAN Administration Heparin Sodium (Porcine) 5,000 unit 05/07/24 23:45 05/10/24 08:54 Heparin Sod Inj 5000 Unit/Ml Vial SC 05/21/24 23:44 5,000 unit Q12HR JONATHAN Administration Acetaminophen 1,000 mg in 50 mls @ 125 mls/hr 05/08/24 08:37 05/10/24 03:40 Ofirmev Inj IV 05/11/24 08:36 125 mls/hr Q6HR PRN Administration Pain 1-3 or fever >100.3 Ceftriaxone Sodium/Dextrose 50 mls @ 100 mls/hr 05/08/24 10:21 05/10/24 08:41 Rocephin/D5w 1gm Iv Premix IV 05/15/24 10:20 100 mls/hr QDAY JONATHAN Administration Azithromycin 500 mg/ Sodium 250 mls @ 250 mls/hr 05/09/24 17:03 05/10/24 14:47 Chloride IV 05/16/24 17:02 250 mls/hr QDAY@1400 JONATHAN Administration Pantoprazole Sodium 40 mg 05/08/24 09:00 05/10/24 08:42 Pantoprazole Inj 40 Mg Vial IVP 06/07/24 08:59 40 mg QDAY JONATHAN Administration Pramipexole Dihydrochloride 0.25 mg 05/09/24 21:00 05/09/24 21:39 Pramipexole 0.25 Mg Tablet PO 06/08/24 20:59 0.25 mg HS JONATHAN Administration Quetiapine Fumarate 150 mg 05/09/24 21:00 05/09/24 21:40 Quetiapine Fumarate 100 Mg Tablet PO 06/08/24 20:59 150 mg HS JONATHAN Administration Plan Ms Bush is a 69-year-old female with past medical history significant for mild retardation, severe schizophrenia, Parkinson's disease, moderate impulse disorder, osteoporosis who presented to the ED after choking on her dinner and admitted to telemetry for further management of possible foreign body obstruction. Sepsis secondary to Acute UTI, GNR Although the patient initially presented following body possible obstruction, while she was in the ED she was noted to have a fever of 102 and was tachycardic in the 140s. A sepsis alert was called and sepsis protocol was initiated. Repeat CBC showed an uptrending WBC of 13.9. Chest x-ray that was done on admission was negative but urinalysis showed WBC of 1907 and 4+ bacteria. Bedside influenza test negative. The patient was started on IV fluids and IV ceftriaxone, given IV Tylenol. Blood and urine cultures were ordered. 2 : patient has remained fever free for the past 24 hours on IV ceftriaxone. Pending blood and urine cultures. 05/10 : WBC 22 --> 13 , will continue rocephin in patient Plan: -Continue IV ceftriaxone (05/08 - -Urine cultures pending. Blood culture : Negative (Prelim) -Will discharge on oral antibiotics once culture and sensitivity obtained Esophageal Dysphagia, Severe Foreign body obstruction s/p Endoscopic retrieval - Patient was seen choking on her dinner, most likely piece of meat per her caregiver, and before patient fully brought up the meat, she is re-swallowed the meat piece. Patient continues to have unaccompanied cough and gargling. - Obtain any consent from see [facility] and ask for officer on duty, . - Possibly has dysphagia as a complication of Parkinson's disease 05/08 : S/p upper endoscopy, with large foreign body retrieval by Dr Mcdonald. 05/09 : although oxygen requirements are intermittently improving, patient was reported to have been coughing and desatting which bumped them up slightly. Due to concern of aspiration, make patient n.p.o. and do modified barium swallow. 05/10 : Barium swallow XR Esophagogram : Patient swallowed thin barium with 24 spot fluoroscopic films of the esophagus. Fluoroscopy 0.5 minutes radiation dose 21.80 milligray. Primary peristaltic esophageal waves. No esophageal obstruction Plan: -Diet resumed, dysphagia 2 as per speech therapy recommendations -IV PPI for GI prophylaxis to continue -Continue Azithromycin (05/09 - ) to cover for aspiration PNA Parkinson's disease Moderate impulse disorder Severe schizophrenia - On home benztropine 2 mg twice daily - On pramipexole 0.25 twice daily - On home divalproex 500 mg ER at bedtime - On home quetiapine - Will hold mirtazapine for now Osteoporosis Patient takes home alendronate weekly on Fridays Health Maintenance: Disposition: Observe for 24 hours. Anticipate DC on 05/11 once able to swallow and tolerate diet comfortably DVT prophylaxis: SC Heparin Diet: Dysphagia 2 Lines: PIV O2: Oxy mask CODE STATUS: Full code Plan of care discussed with attending Dr Khan , Moy Bob M.D. PGY2
[2024-05-10] MEDS: PRAMIPEXOLE 0.25 MG TABLET PO (21:15)
[2024-05-10] MEDS: QUEtiapine FUMARATE 100 MG TABLET 150 MG PO (21:15)
[2024-05-10] MEDS: DIVALPROEX SOD ER 250 MG TABER (NON-FORMULARY) 500 MG PO (21:16)
[2024-05-11] VITALS (9 sets, daily range): BP systolic 125–158; BP diastolic 69–99; PULSE 83–107; RESP 13–97; TEMP 36–36.3; O2SAT 93–99; BMI 21.9; BMI 21.7
[2024-05-11 09:40] LABS: Basophils % (Auto) 0 % (0-2.5); Eosinophils # (Auto) 0.1 Thou/mm3 (0.0-0.5); Eosinophils % (Auto) 2 % (0-10); Hematocrit 36.2 % (36.0-46.0); Hemoglobin 12.1 g/dL (12.0-16.0); Immature Granulocytes % (Auto) 0 % (0-0); Immature Granulocytes Auto 0.03 Thou/mm3 (0.00-0.00); Lymphocytes # (Auto) 1.4 Thou/mm3 (1.0-4.8); Lymphocytes % (Auto) 17 % (10-50); Mean Corpuscular HGB Conc 33.4 g/dl (31.0-37.0); Mean Corpuscular Hemoglobin 31.5 pg (25.0-35.0); Mean Corpuscular Volume 94 fL (80-100); Monocytes # (Auto) 0.5 Thou/mm3 (0.0-0.8); Monocytes % (Auto) 6 % (0-12); Neutrophils # (Auto) 5.9 Thou/mm3 (1.8-7.7); Neutrophils % (Auto) 75 % (37-80); Nucleated Red Blood Cell % 0 /100 WBC (0); Platelet Count 218 Thou/mm3 (140-440); RDW Standard Deviation 43.9 fL (36.4-46.3); Red Blood Count 3.84 Miln/mm3 (4.00-5.20); White Blood Count 7.9 Thou/mm3 (3.6-11.0)
[2024-05-11] MEDS: PANTOPRAZOLE INJ 40 MG VIAL IVP (09:51)
[2024-05-11] MEDS: HEPARIN SOD INJ 5000 UNIT/ML VIAL SC ×2 (09:52→20:15)
[2024-05-11] MEDS: BENZTROPINE 0.5 MG TABLET 2 MG PO ×2 (09:53→20:14)
[2024-05-11] MEDS: ASPIRIN 81 MG CHEW PO (09:53)
[2024-05-11] MEDS: cefTRIAXone/D5w 1gm IV premix 50 ML IV (09:53)
[2024-05-11] MEDS: AZITHROMYCIN INJ 500 MG in SODIUM CHLORIDE 0.9% 250 ML 250 ML 250 MG IV (14:42)
[2024-05-11] MEDS: Milk Of Magnesia Susp 30 ML UDC PO (14:42)
[2024-05-11] MEDS: GLYCERIN, ADULT 1 EA SUPP 1 EACH PR (14:42)
--- NOTE | 2024-05-11 15:09 | PC.SS ---
Follow up note: Patient has d/c orders to return to residential nursing home. SS updated [facility] and their staff will worm picker patient. SS later received call that patient still has not had a b.m. D/c held until patient has a b.m. SS updated [facility]. Nursing can notify facility once she does and [facility].
--- NOTE | 2024-05-11 15:34 | ESDS_ITS ---
<Statement entered by Moy Bob MD - 05/11/24 16:12> Patient was examined with the team including attending physician. Note reviewed, I agree with the discharge plan as documented. - Moy Bob M.D. PGY2 Planned Discharge Date 05/11/24 DS: Providers Provider Date of admission: 05/08/24 01:21 Primary care physician: Dori Ruiz Admitting Provider: Jonathan Hoffmann MD Attending Provider on Admission: Sandra Khan MD Consults: 05/07/24 18:42 Consult to Gastroenterology Stat Comment: Foreign body stuck esophagus Consulting Provider: Meredith Mcdonald 05/08/24 14:11 Referral Speech Therapy Routine Comment: Attending Provider on DC: Chiara Horn MD Discharging Provider: Chiara Horn MD DS: Diagnosis Problem List Completed Was Problem List Reviewed/Reconciled?: Yes Hospital Course Hospital Course Hospital course: The patient is a 69-year-old female with a past medical history of moderate sedation, Parkinson's disease, schizophrenia, moderate simple disorder, osteoporosis who presents to the ED on 05/08/2024 after she was found to choked on her dinner and subsequently was gurgling and coughing. In the ED, the patient tachycardic and hypoxic. Chest x-ray was negative for aspiration pneumonia and soft tissue neck x-ray was done which showed some prominence of vertebral soft tissue but no opaque foreign body. GI doctor, was consulted and patient was scheduled for an upper endoscopy. While in the ED, patient was found to have a fever in addition to tachycardia sepsis alert was called and sepsis protocol was initiated. Urinalysis was done which was positive for UTI and she was started on IV antibiotics. Upper endoscopy was successful with removal of the foreign body and additionally patient had modified barium swallow done for evaluation of dysphagia due to Parkinson's disease which was negative. In addition antibiotic azithromycin was added to cover for possible aspiration pneumonia as oxygen requirement went up slightly. Sepsis has been ruled out. Today, the patient is clinically and hemodynamically stable, saturating 98% on room air. She is medically cleared for discharge, to continue on Augmentin for 5 more days and azithromycin for 2 more days. Patient is also recommended to follow-up with her PCP within 1 week of discharge. #Sepsis ruled out #Acute UTI #Dysphagia, foreign body obstruction status post endoscopic retrieval #Parkinson's disease #Moderate impulse disorder #Schizophrenia #Osteoporosis Discharge instructions: Follow up with your PCP within 1week of discharge Continue Azithromycin for 2 more days Take Augmentin for 5 more days Follow a dysphagia diet to avoid recurrent symptoms Return to the ED immediately if your symptoms recur Case was discussed with Dr Bob PGY-2 and attending physician, Dr Bill Horn MD PGY-1 Status at Discharge Overall status at discharge: patient is back to baseline Time Spent with Patient Time attestation: Total time spent providing and/or coordinating discharge services: Time spent: Greater than 30 minutes Exam Vital Signs Temp Pulse Resp BP Pulse Ox O2 Del Method O2 Flow Rate 97.1 F 83 13 154/77 H 98 Nasal Cannula 1 05/11/24 12:00 05/11/24 12:00 05/11/24 12:00 05/11/24 12:00 05/11/24 12:00 05/11/24 12:00 05/11/24 12:00 FiO2 62 05/11/24 08:00 Narrative Exam General Appearance: AAOX2, able to answer simple questions HEENT: NC/AT, no scleral icterus, no conjunctival pallor Lungs: CTAB, no wheezes or crackles appreciated CVS: RRR, S1/S2 heard, no murmurs or rubs appreciated ABD: Soft, non-tender, non-distended, BS + EXT: no deformity/edema/lesions/cyanosis/clubbing, except for cervical scoliosis, pedal pulses felt bilaterally SKIN: Skin exam normal without any rashes. Neuro: A&O x [address]. No gross neurological deficits. Motor and sensory grossly intact in B/L UL and LL. Psych: Appropriate mood and affect Discharge Plan Plan Patient Disposition: Xfer Skilled Nsg Fac (SNF) Disposition Comment: MedSurg Prescriptions/Referrals Prescriptions/Med Rec: New azithromycin 250 mg tablet 250 mg PO QDAY 2 Days Qty: 2 0RF Rx Instructions: start on day 2 of therapy amoxicillin-pot clavulanate 875-125 mg tablet 1 tab PO BID 5 Days Qty: 10 0RF Continued divalproex 500 mg Tablet Extended Release 24 Hr 500 mg PO HS docusate sodium 250 mg Capsule 250 mg PO QDAY alendronate 70 mg Tablet 70 mg PO DAILY benztropine 2 mg tablet 2 mg PO BID aspirin 81 mg tablet,chewable 81 mg PO .AM mirtazapine 30 mg tablet 30 mg PO HS pramipexole 0.75 mg tablet 0.25 mg PO HS quetiapine 100 mg tablet 200 mg PO .COMPLEX Rx Instructions: 200 mg orally 1.5 Tabs HS, 0.5 Tabs PM; administer on day 2 of therapy melatonin 10 mg capsule 10 mg PO HS PRN (Reason: sleep) Discontinued mirtazapine 45 mg Tablet 45 mg PO HS Referrals: Dori Ruiz [Primary Care Provider] - Patient/Caregiver Discharge Instructions Other Discharge Activity Instructions:: Follow up with your PCP within 1week of discharge Continue Azithromycin for 2 more days Take Augmentin for 5 more days Follow a dysphagia diet to avoid recurrent symptoms Return to the ED immediately if your symptoms recur Education Materials: What Is Pneumonia?, Treating Pneumonia, Dysphagia Diet- Managing Foods Print Language: [place] Stand Alone Forms: Zenaida Award Info., Patient Portal Info Letter Discharge Order Discharge Orders: Discharge (Routine); Ordered 05/11/24 Ordered By: Chiara Horn Quality Discharge Quality Measures VTE prophylaxis
--- NOTE | 2024-05-11 18:13 | PC.NURSE ---
Spoke with patients [facility] and gave update that patient needs to have a bowel movement and medication has been given. Staff at [facility] does not want the patient discharged until she has one.
[2024-05-11] MEDS: DIVALPROEX SOD ER 250 MG TABER (NON-FORMULARY) 500 MG PO (20:14)
[2024-05-11] MEDS: QUEtiapine FUMARATE 100 MG TABLET 150 MG PO (20:14)
[2024-05-11] MEDS: PRAMIPEXOLE 0.25 MG TABLET PO (20:14)
--- NOTE | 2024-05-11 21:04 | ESPR_ITS ---
Documentation for date of: 05/11/24 Subjective Subjective Interval history: Patient evaluated Okay to discharge her facility Doing well after endoscopic removal of the large esophageal foreign body Exam Vital Signs Temp Pulse Resp BP Pulse Ox O2 Del Method O2 Flow Rate 97.4 F 87 14 143/85 H 99 Nasal Cannula 1 05/11/24 20:00 05/11/24 20:00 05/11/24 20:00 05/11/24 20:00 05/11/24 20:00 05/11/24 20:00 05/11/24 20:00 FiO2 62 05/11/24 16:00 Objective Labs 05/11/24 09:14 05/10/24 05:34 Labs: Laboratory Results - last 24 hr 05/11/24 09:14 WBC 7.9 D RBC 3.84 L Hgb 12.1 Hct 36.2 MCV 94 MCH 31.5 MCHC 33.4 RDW Std Deviation 43.9 Plt Count 218 Neut % (Auto) 75 Lymph % (Auto) 17 [place] % (Auto) 6 Eos % (Auto) 2 Baso % (Auto) 0 Neut # (Auto) 5.9 Lymph # (Auto) 1.4 [place] # (Auto) 0.5 Eos # (Auto) 0.1 Baso # (Auto) 0.0 Immature Gran # (Auto) 0.03 H Absolute Nucleated RBC 0.00 Immature Gran % 0 Nucleated RBC % 0 Impressions Impression: # Foreign body obstruction status post removal of the esophageal foreign body Assessment & Plan A&P Narrative # Foreign body obstruction esophagus plan Fiberoptic esophagogastroduodenoscopy with possible therapeutic intervention under intravenous moderate sedation scheduled for a.m. Informed consent to be obtained from the appropriate authorities and it could be complicated because of the weekend N.p.o. midnight tonight We will follow the patient Time Spent With Patient Time: Total time spent is greater than 50% in coordination of care (as documented) at patient's floor/unit and/or counseling patient:
[2024-05-12] VITALS: BP 138/87; PULSE 85; PULSE 88; RESP 18; TEMP 36.5; O2SAT 95
[2024-05-12 04:00] VITALS: BP 160/76; PULSE 81; PULSE 83; RESP 18; TEMP 36.2; O2SAT 98
[2024-05-12 06:00] VITALS: BMI 21.5
[2024-05-12 08:00] VITALS: BP 139/90; PULSE 85; PULSE 90; RESP 16; TEMP 36.2; O2SAT 96
[2024-05-12] MEDS: PANTOPRAZOLE INJ 40 MG VIAL IVP (08:17)
[2024-05-12] MEDS: Milk Of Magnesia Susp 30 ML UDC PO (08:17)
[2024-05-12] MEDS: ASPIRIN 81 MG CHEW PO (08:17)
[2024-05-12] MEDS: BENZTROPINE 0.5 MG TABLET 2 MG PO (08:17)
[2024-05-12] MEDS: LACTULOSE SYRUP 20 GM/30 ML UDC PO (08:17)
[2024-05-12] MEDS: cefTRIAXone/D5w 1gm IV premix 50 ML IV (08:18)
[2024-05-12] MEDS: HEPARIN SOD INJ 5000 UNIT/ML VIAL SC (08:23)
[2024-05-12 09:20] VITALS: PULSE 98; RESP 18; RESP 98
[2024-05-12 12:00] VITALS: BP 145/84; PULSE 90; PULSE 96; RESP 18; TEMP 36.1; O2SAT 97
--- NOTE | 2024-05-12 13:13 | PD.IMPROG ---
Documentation for date of: 05/12/24 Subjective Subjective Interval history: No further dysphagia after removal of the foreign body Exam Vital Signs Temp Pulse Resp BP Pulse Ox O2 Del Method O2 Flow Rate 96.9 F 96 18 145/84 H 97 Room Air 1 05/12/24 12:00 05/12/24 12:00 05/12/24 12:00 05/12/24 12:00 05/12/24 12:00 05/12/24 12:00 05/11/24 20:00 FiO2 62 05/11/24 16:00 Objective Labs 05/11/24 09:14 05/10/24 05:34 Impressions Impression: # Foreign body obstruction status post endoscopic removal Okay to discharge the patient back to facility to be followed by the primary care physician No GI follow-up necessary Assessment & Plan A&P Narrative # Foreign body obstruction esophagus plan Fiberoptic esophagogastroduodenoscopy with possible therapeutic intervention under intravenous moderate sedation scheduled for a.m. Informed consent to be obtained from the appropriate authorities and it could be complicated because of the weekend N.p.o. midnight tonight We will follow the patient Time Spent With Patient Time: Total time spent is greater than 50% in coordination of care (as documented) at patient's floor/unit and/or counseling patient:
[2024-05-12] MEDS: AZITHROMYCIN INJ 500 MG in SODIUM CHLORIDE 0.9% 250 ML 250 ML 250 MG IV (13:47)
--- NOTE | 2024-05-12 15:03 | ESDS_ITS ---
<Statement entered by Moy Bob MD - 05/12/24 15:56> Patient was examined with the team including attending physician. Note reviewed, I agree with the discharge plan as documented. - Moy Bob M.D. PGY2 Planned Discharge Date 05/12/24 DS: Providers Provider Date of admission: 05/08/24 01:21 Primary care physician: Dori Ruiz Admitting Provider: Jonathan Hoffmann MD Attending Provider on Admission: Sher Cardona MD Consults: 05/07/24 18:42 Consult to Gastroenterology Stat Comment: Foreign body stuck esophagus Consulting Provider: Meredith Mcdonald 05/08/24 14:11 Referral Speech Therapy Routine Comment: Attending Provider on DC: Chiara Horn MD Discharging Provider: Chiara Horn MD DS: Diagnosis Problem List Completed Was Problem List Reviewed/Reconciled?: Yes Hospital Course Hospital Course Hospital course: The patient is a 69-year-old female with a past medical history of moderate sedation, Parkinson's disease, schizophrenia, moderate simple disorder, osteoporosis who presents to the ED on 05/08/2024 after she was found to choked on her dinner and subsequently was gurgling and coughing. In the ED, the patient tachycardic and hypoxic. Chest x-ray was negative for aspiration pneumonia and soft tissue neck x-ray was done which showed some prominence of vertebral soft tissue but no opaque foreign body. GI doctor, was consulted and patient was scheduled for an upper endoscopy. While in the ED, patient was found to have a fever in addition to tachycardia sepsis alert was called and sepsis protocol was initiated. Urinalysis was done which was positive for UTI and she was started on IV antibiotics. Upper endoscopy was successful with removal of the foreign body and additionally patient had modified barium swallow done for evaluation of dysphagia due to Parkinson's disease which was negative. In addition antibiotic azithromycin was added to cover for possible aspiration pneumonia as oxygen requirement went up slightly. Sepsis has been ruled out. Today, the patient is clinically and hemodynamically stable, saturating 98% on room air. She is medically cleared for discharge, to continue on Augmentin for 5 more days and azithromycin for 2 more days. Patient is also recommended to follow-up with her PCP within 1 week of discharge. #Sepsis ruled out #Acute UTI #Dysphagia, foreign body obstruction status post endoscopic retrieval #Parkinson's disease #Moderate impulse disorder #Schizophrenia #Osteoporosis Discharge instructions: Follow up with your PCP within 1week of discharge Continue Azithromycin for 2 more days Take Augmentin for 5 more days Follow a dysphagia diet to avoid recurrent symptoms Return to the ED immediately if your symptoms recur Case was discussed with Dr Bob PGY-2 and attending physician, Dr Brendan Horn MD PGY-1 Status at Discharge Overall status at discharge: patient is back to baseline Time Spent with Patient Time attestation: Total time spent providing and/or coordinating discharge services: Time spent: Greater than 30 minutes Exam Vital Signs Temp Pulse Resp BP Pulse Ox O2 Del Method O2 Flow Rate 96.9 F 96 18 145/84 H 97 Room Air 1 05/12/24 12:00 05/12/24 12:00 05/12/24 12:00 05/12/24 12:00 05/12/24 12:00 05/12/24 12:00 05/11/24 20:00 FiO2 62 05/11/24 16:00 Narrative Exam General Appearance: AAOX2, able to answer simple questions HEENT: NC/AT, no scleral icterus, no conjunctival pallor Lungs: CTAB, no wheezes or crackles appreciated CVS: RRR, S1/S2 heard, no murmurs or rubs appreciated ABD: Soft, non-tender, non-distended, BS + EXT: no deformity/edema/lesions/cyanosis/clubbing, except for cervical scoliosis, pedal pulses felt bilaterally SKIN: Skin exam normal without any rashes. Neuro: A&O x [address]. No gross neurological deficits. Motor and sensory grossly intact in B/L UL and LL. Psych: Appropriate mood and affect Discharge Plan Plan Patient Disposition: Xfer Skilled Nsg Fac (SNF) Disposition Comment: MedSurg Prescriptions/Referrals Prescriptions/Med Rec: New amoxicillin-pot clavulanate 875-125 mg tablet 1 tab PO BID 5 Days Qty: 10 0RF Continued divalproex 500 mg Tablet Extended Release 24 Hr 500 mg PO HS docusate sodium 250 mg Capsule 250 mg PO QDAY alendronate 70 mg Tablet 70 mg PO DAILY benztropine 2 mg tablet 2 mg PO BID aspirin 81 mg tablet,chewable 81 mg PO .AM mirtazapine 30 mg tablet 30 mg PO HS pramipexole 0.75 mg tablet 0.25 mg PO HS quetiapine 100 mg tablet 200 mg PO .COMPLEX Rx Instructions: 200 mg orally 1.5 Tabs HS, 0.5 Tabs PM; administer on day 2 of therapy melatonin 10 mg capsule 10 mg PO HS PRN (Reason: sleep) Discontinued mirtazapine 45 mg Tablet 45 mg PO HS Referrals: Droi Ruiz [Primary Care Provider] - Patient/Caregiver Discharge Instructions Other Discharge Activity Instructions:: Follow up with your PCP within 1week of discharge Continue Azithromycin for 2 more days Take Augmentin for 5 more days Follow a dysphagia diet to avoid recurrent symptoms Return to the ED immediately if your symptoms recur Education Materials: What Is Pneumonia?, Treating Pneumonia, Dysphagia Diet- Managing Foods Print Language: [place] Stand Alone Forms: [employer] Award Info., Patient Portal Info Letter Discharge Order Discharge Orders: Discharge (Routine); Ordered 05/12/24 Ordered By: Chiara Horn Quality Discharge Quality Measures VTE prophylaxis Attestestation MD Attestation I reviewed labs, imaging, EKG, home medications and prior available records. Face to face evaluation was performed by me. I have personally examined the patient and discussed assessment and plan with the IM team. I reviewed the resident note and agree with the plan with exceptions as below. Foreign body in esophagus: In the setting of dysphagia. Status post removal by EGD. Swallow evaluation was made. Changed diet to dysphagia 2. She had a bowel movement. Possible aspiration pneumonia: She is on room air. Will discharge on p.o. Augmentin. Aspiration precautions. Dysphagia diet as above Acute UTI: Continue Augmentin as above Constipation: She had a bowel movement on the day of discharge. Continue docusate as needed Developmental delay: She has a caregiver. Continue routine care Plan of care was discussed with the caregiver at the bedside. All questions were answered. Time spent is 40 minutes. More than 50% of the time was spent on patient education and coordination of care.
[2024-05-12 16:00] VITALS: BP 128/81; PULSE 92; RESP 20; TEMP 36.2; O2SAT 96
--- NOTE | 2024-05-12 17:01 | PC.NURSE ---
Gave over the phone report to Heather @[phone]
== END 2024-05-12 17:23 | disposition skilled nursing facility (03) | DRG 394 ==
LOC: SERX 21:49 → SERHOLD 23:59 → S2NX 05-08 09:00
PROVIDERS: Nurse Practitioner Family; Specialist; Student in an Organized Health Care Education/Training Program; Admitting Provider Student in an Organized Health Care Education/Training Program; Emergency Provider Emergency Medicine; PCP Nurse Practitioner Family; Visit Provider Student in an Organized Health Care Education/Training Program
PROC: 0DC18ZZ Extirpation of Matter from Upper Esophagus, Via Natural or Artificial Opening Endoscopic (ICD-10-PCS; CPT 43239; principal; 2024-05-08 13:30)
DX: T18.128A Food in esophagus causing other injury, initial encounter (principal); F20.89 Other schizophrenia; N39.0 Urinary tract infection, site not specified; F70 Mild intellectual disabilities; G20.A1 Parkinson's disease without dyskinesia, without mention of fluctuations; R62.50 Unspecified lack of expected normal physiological development in childhood; M81.0 Age-related osteoporosis without current pathological fracture; G40.909 Epilepsy, unspecified, not intractable, without status epilepticus; F63.89 Other impulse disorders; F79 Unspecified intellectual disabilities; R13.14 Dysphagia, pharyngoesophageal phase; R09.02 Hypoxemia; K29.70 Gastritis, unspecified, without bleeding; W44.9XXA Unspecified foreign body entering into or through a natural orifice, initial encounter; Z79.83 Long term (current) use of bisphosphonates; Z79.899 Other long term (current) drug therapy; Z11.52 Encounter for screening for COVID-19
CPT/HCPCS: 36415; 70360; 70491; 71045; 71046; 74220; 80053; 81001; 83605; 83735; 84100; 85025; 85730; 87040; 87086; 87502; 87811; 92526; 92610; 94667; 96361; 96372; 96374; 96375; 99285; A4649; J0131; J0456; J0696; J1200; J1610; J1630; J1643; J2250; J2470; J2765; J3010; J3360; J7030; J7050; J7120; Q9967; A9270

== ENCOUNTER 2024-08-08 19:26 | Inpatient (IN) | payer MEDICARE, MEDICAID, SELFPAY ==
[2024-08-08 20:05] VITALS: BP 155/88; PULSE 125; RESP 22; TEMP 36.4; O2SAT 94
--- NOTE | 2024-08-08 20:52 | PD.EDRME ---
Rapid Medical Screening Exam RME Arrival date/time: 08/08/24 19:26 Chief Complaint: Flu Like Symptoms Time Seen by Provider: 08/08/24 20:52 Vital signs: Vital Signs Temperature 97.5 F 08/08/24 20:05 Pulse Rate 125 H 08/08/24 20:05 Respiratory Rate 22 H 08/08/24 20:05 Blood Pressure 155/88 H 08/08/24 20:05 Pulse Oximetry (%) 94 L 08/08/24 20:05 Oxygen Delivery Method Room Air 08/08/24 20:05 Vital signs reviewed by provider: Yes RME Narrative: 69-year-old female who presents with her care provider with a complaint of moist sounding cough that began suddenly today after eating her pur?ed [employer] lunch. Care provider is concerned she may have aspirated due to the sudden onset of the cough. She has been drooling all of her oral secretions since the coughing episode. She is tachycardic and tachypneic with a decreased oxygen saturation of 94% on room air. Care provider denies any fever or chills, nausea or vomiting. She has had a recent bronchitis and UTI for which her primary care physicians provided a Z-Arturo. She completed the antibiotics and was doing well. CXR and labs as well as urine ordered and pending. I have greeted and performed a focused initial assessment of this patient. A comprehensive ED assessment and evaluation of the patient, analysis of all test results, and completion of the medical decision making process will be conducted by additional ED providers.
--- NOTE | 2024-08-08 20:59 | XR_ITS ---
Examination: AP chest single view TECHNIQUE: AP portable semiupright chest single view Exam date 9: August 08, 2024, 2136 hours INDICATIONS: Coughing hypoxia today FINDINGS: Normal heart size Mild increased markings at the right lung base No pulmonary edema Old fractures right humeral neck and left clavicle IMPRESSION: Suspicious for early pneumonia right base
[2024-08-08 21:23] VITALS: BP 139/109; PULSE 126; RESP 20; TEMP 37.1; O2SAT 95
--- NOTE | 2024-08-08 21:23 | PD.EDADULT ---
ED General RME/HPI General Chief complaint: Flu Like Symptoms Stated complaint: COUGH, MIGHT HAVE ASPIRATED Time Seen by Provider: 08/08/24 20:52 Arrival date/time: 08/08/24 19:26 CC: Cough HPI cough since onset at 3 PM after eating a pur?ed [employer] lunch. Patient has history of Parkinson's schizophrenia and osteoporosis, presents to the ER where the care provider is concerned that she had an aspiration of her pur?ed food. Care provider states that also she has had some white froth when she coughs but has had no vomiting. At the time of the initial exam vital signs show tachycardia with a mildly elevated respiratory rate. RME / HPI RME / HPI narrative: 69-year-old female who presents with her care provider with a complaint of moist sounding cough that began suddenly today after eating her pur?ed [employer] lunch. Care provider is concerned she may have aspirated due to the sudden onset of the cough. She has been drooling all of her oral secretions since the coughing episode. She is tachycardic and tachypneic with a decreased oxygen saturation of 94% on room air. Care provider denies any fever or chills, nausea or vomiting. She has had a recent bronchitis and UTI for which her primary care physicians provided a Z-Arturo. She completed the antibiotics and was doing well. CXR and labs as well as urine ordered and pending. I have greeted and performed a focused initial assessment of this patient. A comprehensive ED assessment and evaluation of the patient, analysis of all test results, and completion of the medical decision making process will be conducted by additional ED providers. Related Data Home Medications ?Medication ?Instructions ?Recorded ?Confirmed divalproex 500 mg tablet,extended 500 mg PO HS 10/06/17 05/08/24 release 24 hr alendronate 70 mg tablet 70 mg PO DAILY 03/07/21 05/08/24 docusate sodium 250 mg capsule 250 mg PO QDAY 05/30/21 05/08/24 aspirin 81 mg chewable tablet 81 mg PO .AM 05/08/24 05/08/24 benztropine 2 mg tablet 2 mg PO BID 05/08/24 05/08/24 melatonin 10 mg capsule 10 mg PO HS PRN sleep 05/08/24 05/08/24 mirtazapine 30 mg tablet 30 mg PO HS 05/08/24 05/08/24 pramipexole 0.75 mg tablet 0.25 mg PO HS 05/08/24 05/08/24 quetiapine 100 mg tablet 200 mg PO .COMPLEX 05/08/24 05/08/24 Allergies Allergy/AdvReac Type Severity Reaction Status Date / Time No Known Allergies Allergy Verified 08/08/24 19:29 Review of Systems Review of Systems ROS Unobtainable: unobtainable due to mental status Past Medical History Past Medical History NEUROLOGIC: Positive Neurological Disorders and Parkinson's Disease; Negative Seizures CARDIAC: Negative Cardiac Disorders or Congestive Heart Failure RESPIRATORY: Negative Chronic Obstructive Pulmonary Disease (COPD) or Asthma GASTROINTESTINAL: Negative Gastrointestinal Disorders GENITOURINARY: Negative Genitourinary Disorders or Renal Disease MUSCULOSKELETAL: Negative Musculoskeletal Disorders ENDOCRINE: Negative Endocrine Disorders, Diabetes Mellitus Type 1 or Diabetes Mellitus Type 2 HEMATOLOGIC: Negative Blood Disorders or Sickle Cell Disease PSYCHO/SOCIAL: Positive Schizophrenia and Behavior Problems OTHER HISTORY: Positive Falls; Negative Hospitalization, Autoimmune Disease, Shingles, Blood Transfusions, Blood Transfusion Reaction, Anesthesia Reactions or Cancer Family History FAMILY HISTORY: Negative Family Psychiatric Problems, Family Respiratory Disorders, Family Cardiac Disorders, Family Gastrointestinal Problems, Family Cancer, Family Surgery or Family Anesthesia Reaction Social History SMOKING STATUS: Never smoker ED Exam Narrative Physical exam: [General: Appears not in any acute distress Head normocephalic HEENT: Eyes pupils are PERRLA EOMs intact tracking, no rhinorrhea mouth: [place] moist membranes uvula is midline. All other subsystems of HEENT are within acceptable limits Neck is supple nontender Chest equal chest rise nontender to palpation Respiratory: Clear to auscultation no wheezes crackles or rubs, persistent nonproductive cough. No expectorants, CV: Rate rhythm is regular no murmurs rubs or clicks Abdomen is distended secondary to body habitus soft nontender no masses positive bowel sounds all 4 quadrants Skin: Intact no petechiae rash induration ulceration or crepitus Extremities: Moving all extremity against resistance cap refill less than 2 seconds neurosensory intact Neuro: Awake alert oriented x3 Glascow coma 15 no focal deficits] Course Course Course Narrative: Patient's case discussed with Dr. Marquis who agrees accept the patient for admission the patient was given Zosyn. And concern the patient is developing on aspiration pneumonia as the cause onset after eating, leukocytosis of 19,000 lactic of 2.1. Quality Measures none Orders Category Date Time Status Admit to Inpatient Status Routine Admission 08/08/24 22:39 Active Bedside COVID-19 Antigen Test NOW Care 08/08/24 20:58 Active Bedside Influenza A&B Antigen Test NOW Care 08/08/24 20:58 Completed EKG (ED ONLY) *Do not use* NOW Care 08/08/24 22:27 Completed IV [Insert IV] STAT Care 08/08/24 22:10 Active Nasopharyngeal Suction NOW Care 08/08/24 21:56 Active EKG (ED Only) Stat Exams 08/08/24 22:27 Draft XR chest 1V Stat Exams 08/08/24 20:59 Completed B-Type Natriuretic Peptide Stat Lab 08/08/24 21:10 Completed Blood Culture (Lab) Stat Lab 08/08/24 21:13 Received CBC Stat Lab 08/08/24 21:10 Completed CMP [Comprehensive Metabolic Panel] Stat Lab 08/08/24 21:10 Completed CRP [C-Reactive Protein] Stat Lab 08/08/24 21:10 Completed Lactic Acid [Lactate (Lactic Acid)] Stat Lab 08/08/24 22:01 Results Procalcitonin Stat Lab 08/08/24 22:01 Completed Urinalysis Stat Lab 08/08/24 22:02 Completed Urine Culture Stat Lab 08/08/24 22:02 Received Piper/Tazo 3.375 gm Premix [Zosyn] Med 08/08/24 21:47 Discontinued 3.375 gm in 50 ml IV X1 Piper/Tazo 3.375 gm Premix [Zosyn] Med 08/08/24 22:41 Ordered 3.375 gm in 50 ml IV X1 Vital Signs Vital signs: Vital Signs Temperature 97.5 F 08/08/24 20:05 Pulse Rate 125 H 08/08/24 20:05 Respiratory Rate 22 H 08/08/24 20:05 Blood Pressure 155/88 H 08/08/24 20:05 Pulse Oximetry (%) 94 L 08/08/24 20:05 Oxygen Delivery Method Room Air 08/08/24 20:05 Discharge Plan Plan Patient Disposition: HOME (Self Care) Patient condition on transfer: Stable Prescriptions/Referrals Prescriptions/Med Rec: No Action divalproex 500 mg Tablet Extended Release 24 Hr 500 mg PO HS docusate sodium 250 mg Capsule 250 mg PO QDAY alendronate 70 mg Tablet 70 mg PO DAILY benztropine 2 mg tablet 2 mg PO BID aspirin 81 mg tablet,chewable 81 mg PO .AM mirtazapine 30 mg tablet 30 mg PO HS pramipexole 0.75 mg tablet 0.25 mg PO HS quetiapine 100 mg tablet 200 mg PO .COMPLEX Rx Instructions: 200 mg orally 1.5 Tabs HS, 0.5 Tabs PM; administer on day 2 of therapy melatonin 10 mg capsule 10 mg PO HS PRN (Reason: sleep) Referrals: No Primary/Family,Physician [Primary Care Provider] - In 1 week Problem List Clinical Impression: Pneumonia, Tachycardia, Tachypnea Patient/Caregiver Discharge Instructions Print Language: Hungarian Stand Alone Forms: [employer] Award Info., Patient Portal Info Letter PA/MECHANICAL DESIGN TECHNICIAN Supervising Physician PA/ADITYA Supervising Physician: Hollis Lezama ENP MDM Clinical Information Other: Care provider Medical Records reviewed [facility] Chronic Illness/Social Conditions Explain: Parkinson's schizophrenia nonverbal EKG Interpretation EKG #1: EKG Interpretation: EKG performed at 2235 shows a ventricular to 129 MS interval 120 QRS of 94 QTc of 3 6 9, this is sinus tachycardia incomplete right bundle branch block. When compared to an old EKG from March 2021 there are no significant changes. Labs Lab(s) Interpretation(s): CBC shows a leukocytosis of 19.6 no anemia thrombocytopenia CMP shows no acute electrolyte imbalances glucose mildly elevated 113 BUN and creatinine show no acute renal impairment lactic acid of 2.1 no transaminitis or T. bili elevation C-reactive protein at less than 0.5 BNP at 24. Urine is pending at the time of exam Imaging Imaging Interpretation(s): X-rays interpreted by radiology shows possible right base pneumonia. Medication Administration(s) Medication Administration History Piperacillin/Tazobactam/Dextrose (Zosyn) 3.375 gm in 50 mls @ 100 mls/hr IV X1 ONE Stop: 08/08/24 23:10 Discontinued Medications Piperacillin/Tazobactam/Dextrose (Zosyn) 3.375 gm in 50 mls @ 100 mls/hr IV X1 ONE Stop: 08/08/24 22:16 Last Admin: 08/08/24 22:12 Dose: 100 mls/hr Documented By: MIGUEL None Diagnosis Differential Diagnosis ED Complaint MDM: Aspiration pneumonia electrolyte imbalance renal impairment
[2024-08-08 21:29] LABS: Basophils # (Auto) 0.1 Thou/mm3 (0.0-0.2); Basophils % (Auto) 0 % (0-2.5); Eosinophils # (Auto) 0.1 Thou/mm3 (0.0-0.5); Eosinophils % (Auto) 1 % (0-10); Hematocrit 47.4 % (36.0-46.0); Hemoglobin 15.6 g/dL (12.0-16.0); Immature Granulocytes % (Auto) 0 % (0-0); Immature Granulocytes Auto 0.08 Thou/mm3 (0.00-0.00); Lymphocytes # (Auto) 2.4 Thou/mm3 (1.0-4.8); Lymphocytes % (Auto) 12 % (10-50); Mean Corpuscular HGB Conc 32.9 g/dl (31.0-37.0); Mean Corpuscular Hemoglobin 31.1 pg (25.0-35.0); Mean Corpuscular Volume 95 fL (80-100); Monocytes # (Auto) 1.1 Thou/mm3 (0.0-0.8); Monocytes % (Auto) 6 % (0-12); Neutrophils # (Auto) 15.9 Thou/mm3 (1.8-7.7); Neutrophils % (Auto) 81 % (37-80); Nucleated Red Blood Cell % 0 /100 WBC (0); Platelet Count 274 Thou/mm3 (140-440); RDW Standard Deviation 44.7 fL (36.4-46.3); Red Blood Count 5.01 Miln/mm3 (4.00-5.20); White Blood Count 19.6 Thou/mm3 (3.6-11.0)
[2024-08-08 21:44] LABS: B-Type Natriuretic Peptide 24 pg/mL (0-100)
[2024-08-08 21:47] LABS: Alanine Aminotransferase 15 U/L (10-49); Albumin, Serum 4.3 gm/dL (3.4-4.8); Albumin/Globulin Ratio 1.5 (1.2-2.2); Alkaline Phosphatase 104 U/L (46-116); Anion Gap 9 (7-16); Aspartate Amino Transferase 22 U/L (0-34); BUN/Creatinine Ratio 35 Ratio (12-20); Bilirubin,Total 0.3 mg/dL (0.3-1.2); Blood Urea Nitrogen 21 mg/dL (9-23); C-Reactive Protein < 0.5 mg/dL (0.0-0.9); Calcium 9.2 mg/dL (8.3-10.6); Calcium (Corrected) 9.2 mg/dL (8.5-10.1); Carbon Dioxide 30.4 mMol/L (20.0-31.0); Chloride 103 mMol/L (98-107); Creatinine (Component) 0.6 mg/dL (0.6-1.3); Estimated Creatinine Clearance 57.1 mL/min (>60); Globulin 2.8 gm/dL (2.3-3.5); Glucose 113 mg/dL (74-106); Osmolality,Calculated 287 (275-295); Potassium 4.5 mMol/L (3.4-5.1); Sodium 142 mMol/L (136-145); Total Protein 7.1 gm/dL (5.7-8.2); eGFR > 60 See Note
[2024-08-08 22:10] LABS: Lactate (Lactic Acid) 2.1 mMol/L (0.4-2.0)
[2024-08-08 22:10] LABS: Collection Type, Urine Catheter; Squamous Epithelial Cell,Urine 0 /hpf (0-5)
[2024-08-08] MEDS: PIPER/TAZO 3.375 GM PREMIX 3.375 GM/50 ML BAG IV (22:12)
[2024-08-08 22:22] LABS: Bacteria,Urine 2+; Bilirubin,Urine Negative (Negative); Blood,Urine 1+ (Negative); Clarity,Urine Clear (Clear/Hazy); Color,Urine Yellow (Lt Yel-Yel); Glucose, Urine Negative (Negative); Ketones,Urine 1+ (Negative); Leukocyte Esterase,Urine Positive (Negative); Nitrite,Urine Negative (Negative); PH,Urine 5.5 (5.0-7.0); Protein,Urine Negative (Neg - Trace); RBC,Urine 4 /hpf (0-3); Specific Gravity,Urine 1.024 (1.001-1.035); Urobilinogen,Urine Negative mg/dL (0.0-1.0); WBC,Urine 18 /hpf (0-5)
--- NOTE | 2024-08-08 22:27 | EKG_ITS ---
[facility] Test Date: 2024-08-08 Pat Name: JORY JEAN Department: Room: - Gender: Female Composition Professor: : 1955 Requested By: Oscar Vasquez Order Number: [id number] Reading MD: Oscar Vasquez Measurements Intervals Anderson Rate: 129 P: 65 CO: 120 QRS: 7 QRSD: 94 T: 51 QT: 293 QTc: 430 Interpretive Statements SINUS TACHYCARDIA INCOMPLETE RIGHT BUNDLE BRANCH BLOCK [90+ ms QRS DURATION, TERMINAL R IN V1/V2, 40+ ms S IN I/aVL/V4/V5/V6] MINIMAL ST DEPRESSION [0.025+ mV ST DEPRESSION] ABNORMAL RHYTHM ECG Compared to ECG 03/07/2021 10:08:39 ST (T wave) deviation now present /store/S0/[id number].pdf
--- NOTE | 2024-08-08 22:30 | EVENTNT_ITS ---
Documentation for date of: 08/08/24 Event Note Event Note: A 69-year-old female presented to the ER with the chief complaint of coughing and drooling, suspected secondary to aspiration. The patient was in her usual state of health until approximately 3 PM today, when she began drooling profusely, producing white foamy secretions with intermittent green discoloration, and developed a wet-sounding cough with gurgling, reminiscent of a prior aspiration episode in May. Earlier in the day, around 1:30 PM, she consumed pureed [employer] tacos followed by her usual medications at 2 PM. By 3 PM, she began to deteriorate, prompting her caregivers to bring her to the ER around 6 PM. Onset of symptoms was sudden and progressive. Her caregiver reports that she initially coughed while drinking water yesterday morning at 8 AM but seemed stable for the rest of the day. She was afebrile throughout. Patient also developed difficulty swallowing secretions, which were previously managed by swallowing but now continuously drain from her mouth. She has a history of aspiration pneumonia and required endoscopic retrieval of a foreign body in May. The patient has a history of mild intellectual disability, schizophrenia, Parkinson?s disease, moderate impulse disorder, and osteoporosis. Current medications include Ingrezza, Linzess, Alendronate Sodium, Aspirin, Benztropine, Divalproex ER, Mirtazapine, Pramipexole, and Quetiapine. She does not smoke, drink alcohol, or use recreational drugs. She resides in a residential facility for developmentally disabled individuals and is considered full code. She is functionally independent with assistance for safety around eating. No recent hospitalizations other than the May admission related to aspiration. In the ER, vital signs recorded as temp 97.5?F, HR 125 bpm, RR 22, BP 155/88 mmHg, saturation 94% on room air. Labs showed WBC 19.6, Hb 15.6, platelets 274, Na 142, K 4.5, Cl 103, BUN 21, Cr 0.6, glucose 113, lactic acid 2.1. CXR suspicious for early pneumonia at the right lung base. UA WBC 18, bacteria 2+. The patient was admitted for aspiration pneumonia. #Acute Aspiration Pneumonia Assessment: Acute onset cough, drooling, gurgling voice, foamy oral secretions after ingestion of food and medications; history of prior aspiration. Tachycardia, elevated RR, WBC 19.6, lactic acid 2.1. CXR with right lower lobe infiltrate. Plan: - Initiate empiric antibiotics covering oral anaerobes and enteric gram- negatives - Maintain NPO until formal swallow evaluation completed - Swallow evaluation - Elevate head of bed >=0? and use aspiration precautions - Monitor respiratory status and oxygen saturation - Monitor CBC and BMP daily #Chronic Parkinson?s Disease Assessment: History of Parkinson?s disease; risk factor for dysphagia and aspiration events. Plan: - Continue home medications as tolerated - Reinforce aspiration precautions with feeding #Chronic Schizophrenia Assessment: Managed with quetiapine, Ingrezza, benztropine, and divalproex; potential medication-induced xerostomia or dysphagia. Plan: - Continue current psychiatric medications unless contraindicated #Chronic Intellectual Disability Assessment: Baseline developmental delay with moderate impulse disorder; requires supervision for feeding and medication administration. Plan: - Maintain supervision during meals - Reinforce feeding precautions at residential facility #Suspected Urinary Tract Infection Assessment: UA with WBC 18, bacteria 2+, but no urinary symptoms reported; leukocytosis may be confounded by pneumonia. Plan: - Obtain urine culture
[2024-08-08 22:41] LABS: Procalcitonin 0.08 ng/ml (0.0-0.49)
--- NOTE | 2024-08-08 23:48 | PD.RESHP ---
Documentation for date of: 08/08/24 HPI History of Present Illness Chief complaint: aspiration History of present illness: César Bush is 69yr F with PMH of intellectual disability, Parkinson's, schizophrenia, osteoporosis who presented to ED due to vomiting with subsequent aspiration. Caregiver was at bedside who provided information. Patient came in from half-way. She was in usual state of health when this afternoon started having coughing episodes, productive in nature, after eating pureed tacos from [employer]. Initially secretions were white and foamy with intermittent green discoloration. Caregiver noticed wet, gurgling noises as patient was trying to cough. Caregiver stated that this episode was similar to previous aspiration event in May. Patient consumes only pureed diet. Denied any fevers. Patient mostly answers yes or no questions. In ED, blood pressure 139/109, tachycardia 126, tachypneic 22, afebrile. At bedside patient saturating at 96% on 7-8L oxy mask. CBC showed leukocytosis 19, lactic acid 2.1, UA positive for UTI. Chest x-ray suspicious for early right base pneumonia, EKG sinus tachycardia heart rate 129, QT 430. Was given Zosyn 3.375 x 1, 1 L bolus NS. Patient will be admitted for sepsis secondary to aspiration pneumonia. PMH: As noted above PSH: None Meds: Patient takes alendronate 70 mg q. weekly on Fridays, calcium 600 mg twice daily, divalproex 500 mg ER at bedtime, docusate sodium 250 mg daily, quetiapine 150mg HS, Pramipexole .25mg BID, Mirtazepine 30mg HS, Benztropine 2mg BID, and Aspirin 81mg QD, source from patient's chart from her facility Allergies: NKDA Family history: Noncontributory Social history: Denies any smoking, alcohol, illicit drug use per patient's caregiver Review of Systems Review of Systems Systems Reviewed: All systems reviewed, normal except as documented Exam Vital Signs Temp Pulse Resp BP Pulse Ox O2 Del Method 98.7 F 126 H 20 139/109 H 95 Room Air 08/08/24 21:23 08/08/24 21:23 08/08/24 21:23 08/08/24 21:23 08/08/24 21:23 08/08/24 21:23 Narrative Exam General: Middle aged female, awake, on oxymask, frothy red sputum pooling in mask HEENT: NCAT, No JVD noted. Pupils are equal and reactive to light bilaterally Cardiovascular: Normal S1 and S2. Regular rate and rhythm. Respiratory: Lungs are clear to auscultation bilaterally. No wheezing or crackles heard. Abdomen: Soft, nontender, not distended, normal bowel sounds. Skin: Warm to touch, dry, no rashes noted Musculoskeletal: No gross injuries. Was moving all 4 extremities. No pitting edema Neuro: GCS 15, only responding yes Psych: uable to assess Results: Labs 08/08/24 21:10 08/08/24 21:10 Labs: Short CBC 08/08/24 Range/Units 21:10 WBC 19.6 H (3.6-11.0) Thou/mm3 Hgb 15.6 (12.0-16.0) g/dL Hct 47.4 H (36.0-46.0) % Plt Count 274 (140-440) Thou/mm3 BMP 08/08/24 21:10 Sodium 142 Potassium 4.5 Chloride 103 Carbon Dioxide 30.4 BUN 21 Creatinine 0.6 Glucose 113 H Calcium 9.2 Liver Function 08/08/24 Range/Units 21:10 Total Bilirubin 0.3 (0.3-1.2) mg/dL AST 22 (0-34) U/L ALT 15 (10-49) U/L Alkaline Phosphatase 104 (46-116) U/L Albumin 4.3 (3.4-4.8) gm/dL Urine 08/08/24 Range/Units 22:02 Urine Color Yellow (Lt Yel-Yel) Urine Clarity Clear (Clear/Hazy) Urine pH 5.5 (5.0-7.0) Ur Specific [place] 1.024 (1.001-1.035) Urine Protein Negative (Neg - Trace) Urine Glucose (UA) Negative (Negative) Quality Measures Quality Measures none Advance care planning discussed with:: other Medications Home Medications and Allergies Home Medications ?Medication ?Instructions ?Recorded ?Confirmed ?Type divalproex 500 mg tablet,extended 500 mg PO HS 10/06/17 05/08/24 History release 24 hr alendronate 70 mg tablet 70 mg PO DAILY 03/07/21 05/08/24 History docusate sodium 250 mg capsule 250 mg PO QDAY 05/30/21 05/08/24 History aspirin 81 mg chewable tablet 81 mg PO .AM 05/08/24 05/08/24 History benztropine 2 mg tablet 2 mg PO BID 05/08/24 05/08/24 History melatonin 10 mg capsule 10 mg PO HS PRN sleep 05/08/24 05/08/24 History mirtazapine 30 mg tablet 30 mg PO HS 05/08/24 05/08/24 History pramipexole 0.75 mg tablet 0.25 mg PO HS 05/08/24 05/08/24 History quetiapine 100 mg tablet 200 mg PO .COMPLEX 05/08/24 05/08/24 History Allergies Allergy/AdvReac Type Severity Reaction Status Date / Time No Known Allergies Allergy Verified 08/08/24 19:29 Visit Medications Enoxaparin Sodium (Enoxaparin Sod Inj 40 Mg/0.4 Ml Syringe) 40 mg SC DAILY JONATHAN Stop: 08/23/24 08:59 Piperacillin/Tazobactam/Dextrose (Zosyn) 3.375 gm in 50 mls @ 100 mls/hr IV X1 ONE Stop: 08/08/24 23:10 Azithromycin 500 mg/ Sodium (Chloride) 250 mls @ 250 mls/hr IV QDAY JONATHAN Stop: 08/15/24 23:37 Piperacillin/Tazobactam/Dextrose (Zosyn) 50 mls @ 100 mls/hr IV Q8HR JONATHAN Stop: 08/16/24 08:59 Sodium Chloride (Ns) 1,000 mls @ 999 mls/hr IV .Q1H1M ONE Stop: 08/09/24 00:46 Discontinued Medications Piperacillin/Tazobactam/Dextrose (Zosyn) 3.375 gm in 50 mls @ 100 mls/hr IV X1 ONE Stop: 08/08/24 22:16 Last Infusion: 08/08/24 22:58 Dose: Infused Sodium Chloride (Sodium Chloride Rt 10% 15 Ml Nebu) 5 ml INH X1 ONE Stop: 08/08/24 23:38 Assessment & Plan Plan César Bush is 69yr F with PMH of intellectual disability, Parkinson's, schizophrenia, osteoporosis who presented to ED due to vomiting with subsequent aspiration. Caregiver was at bedside who provided information. Patient will be admitted for sepsis secondary to aspiration pneumonia. #AHRF #Sepsis 2/2 Aspiration Pneumonia Presented due to vomiting with subsequent aspiration after eating pureed tacos. SIRS 3/4 (tachy 126, RR 22, WBC 19). qSOFA 1 Chest x-ray suspicious for early right base pneumonia. Sepsis due to aspiration with acute sepsis-related organ dysfunction as evidence by AHRF. ? Sputum culture pending ? Blood cultures pending ? IV azithromycin 500 mg daily ? IV Zosyn 3.375 g TID ? Aspiration precautions ? N.p.o. ? Resume IV medications only ? Suctioning q2hr ? Continue oxy mask #Bacteriuria UA Positive for leukocyte esterase, 4 RBC, 18 WBC, 2+ bacteria. Unable to assess possible symptoms due to baseline mental mental status. ? Urine culture pending #Hx IBS ? Linzess 72mcg #Hx Schizophrenia ? Ingrezza 40mg ? Benztropine 2mg ? Divalproex ER 500mg ? Mirtazapine 30mg ? Pramipexole 0.25mg ? Quetiapine 200 mg #Hx osteoporosis - Aldendronate 70mg #Hx Intellectual Disability All PO meds on hold due to NPO status. Health maintenance: Dispo: AHRF, aspiration FEN: NPO DVT prophylaxis: Lovenox CODE STATUS: Full code The patient's management plan was discussed with my attending physician Dr. Marquis. Rand Foster, PGY-1 Attending Provider Attestation/Addendum Pt was evaluated and plan formulated together with the housestaff team. I have reviewed the residents note above and agree with most of its content. Please refer to the residents note for additional details.
[2024-08-09] VITALS (85 sets, daily range): BP systolic 75–186; BP diastolic 40–117; PULSE 85–136; RESP 14–39; TEMP 36.1–37.2; O2SAT 85–100; BMI 20.6
[2024-08-09] MEDS: SODIUM CHLORIDE 0.9% 1000 ML 1,000 ML 999 ML IV (00:16)
[2024-08-09] MEDS: AZITHROMYCIN INJ 500 MG in SODIUM CHLORIDE 0.9% 250 ML 250 ML 250 MG IV ×2 (00:17→21:23)
[2024-08-09] MEDS: SODIUM CHLORIDE 0.9% 1000 ML 1,000 ML 75 ML IV (00:17)
[2024-08-09 01:06] LABS: Reflex Lactate? Y
[2024-08-09 01:20] LABS: Lactic Acid, 3 HR 1.3 mMol/L (0.4-2.0)
[2024-08-09] MEDS: PIPER/TAZO 3.375 GM PREMIX 3.375 GM/50 ML BAG IV ×3 (08:22→21:24)
--- NOTE | 2024-08-09 08:44 | PCS.ST ---
Swallow Evaluation completed this AM. See report for details. Pt is not safe for PO at this time. Significant pharyngeal/laryngeal secretions. ST will follow up for PO readiness.
[2024-08-09] MEDS: FAMOTIDINE INJ 10 MG/ML VIAL 2 ML 20 MG IVP ×2 (09:13→21:23)
[2024-08-09] MEDS: ENOXAPARIN SOD INJ 40 MG/0.4 ML SYRINGE SC (09:13)
--- NOTE | 2024-08-09 09:36 | PC.SS ---
Follow up note: On IV antibiotic. Pt is non verbal. Pt is from a senior living.
[2024-08-09 10:26] LABS: Basophils # (Auto) 0.1 Thou/mm3 (0.0-0.2); Basophils % (Auto) 0 % (0-2.5); Eosinophils # (Auto) 0.1 Thou/mm3 (0.0-0.5); Eosinophils % (Auto) 1 % (0-10); Hematocrit 39.2 % (36.0-46.0); Hemoglobin 13.2 g/dL (12.0-16.0); Immature Granulocytes % (Auto) 1 % (0-0); Lymphocytes # (Auto) 1.7 Thou/mm3 (1.0-4.8); Lymphocytes % (Auto) 7 % (10-50); Mean Corpuscular HGB Conc 33.7 g/dl (31.0-37.0); Mean Corpuscular Volume 92 fL (80-100); Monocytes # (Auto) 1.8 Thou/mm3 (0.0-0.8); Monocytes % (Auto) 8 % (0-12); Neutrophils # (Auto) 18.4 Thou/mm3 (1.8-7.7); Neutrophils % (Auto) 83 % (37-80); Nucleated Red Blood Cell % 0 /100 WBC (0); Platelet Count 208 Thou/mm3 (140-440); RDW Standard Deviation 44.9 fL (36.4-46.3); Red Blood Count 4.26 Miln/mm3 (4.00-5.20); White Blood Count 22.2 Thou/mm3 (3.6-11.0)
[2024-08-09 10:41] LABS: Alanine Aminotransferase 13 U/L (10-49); Albumin, Serum 3.3 gm/dL (3.4-4.8); Albumin/Globulin Ratio 1.6 (1.2-2.2); Alkaline Phosphatase 78 U/L (46-116); Anion Gap 8 (7-16); Aspartate Amino Transferase 17 U/L (0-34); BUN/Creatinine Ratio 30 Ratio (12-20); Bilirubin,Total 0.4 mg/dL (0.3-1.2); Blood Urea Nitrogen 15 mg/dL (9-23); Calcium 7.6 mg/dL (8.3-10.6); Calcium (Corrected) 8.2 mg/dL (8.5-10.1); Chloride 109 mMol/L (98-107); Creatinine (Component) 0.5 mg/dL (0.6-1.3); Estimated Creatinine Clearance 68.6 mL/min (>60); Globulin 2.1 gm/dL (2.3-3.5); Glucose 97 mg/dL (74-106); Osmolality,Calculated 289 (275-295); Potassium 3.5 mMol/L (3.4-5.1); Sodium 145 mMol/L (136-145); Total Protein 5.4 gm/dL (5.7-8.2); eGFR > 60 See Note
--- NOTE | 2024-08-09 12:23 | PC.SS ---
Pt is from [facility].? SS spoke to [facility] hand worker Heather from [facility].? Pt was admitted for Aspiration Pneumonia.? Smitha confirmed patient's demographic and contact information is correct on facesheet.? Pt ambulates independently without assistance or DME.? Pt has a 4 wheel with seat, rollator walker which she uses only as needed.? Pt requires assistance with ADLs.? Patient utilizes [facility].? Per Heather, pt does not have family.? Per Heather, pt is not conserved and [facility] can be contacted with major decisions and placement services.? Patient will return home upon d/c.? Staff at [facility] can provide transportation.? Pt followed up with PCP in July. D/C plan:? Return home Emergency contact:? [facility], phone# [phone] PCP:? [facility] Address:? Correct on facesheet
--- NOTE | 2024-08-09 13:43 | XR_ITS ---
Examination: AP chest single view Technique one AP portable sitting chest single view Exam date and time: August 09, 2024 1353 hours Comparison August 08, 2024 INDICATIONS: Choking coughing congestion today. FINDINGS: Significant right lung opacity consistent with pneumonia volume loss Left lung clear Severe osteopenia Normal heart size IMPRESSION: Severe pneumonia and atelectasis right lung, consider aspiration pneumonia as well as mucus plugging in the right mainstem bronchus
[2024-08-09] MEDS: MIDAZOLAM INJ 1 MG/ML VIAL 2 ML 2 MG IV ×2 (14:41→16:00)
--- NOTE | 2024-08-09 14:42 | PC.NURSE ---
report given to Sonny BUCIO
[2024-08-09] MEDS: KETAMINE 50 MG/ML VIAL 10 ML 70 MG IV (14:47)
[2024-08-09] MEDS: ETOMIDATE INJ 2 MG/ML VIAL 10 ML 15 MG IVP (14:53)
[2024-08-09] MEDS: ROCURONIUM INJ 10 MG/ML VIAL 10 ML 50 MG IV (14:53)
[2024-08-09] MEDS: fentaNYL 2,500 MCG/250 ML BAG 2,500 MCG/250 ML BAG IV (15:00)
[2024-08-09] MEDS: PROPOFOL 1,000 MG IVPB 1,000 MG/100 ML VIAL 1.344 MG IV (15:00)
--- NOTE | 2024-08-09 15:08 | ESOP_ITS ---
Procedures Procedure Date / Time 08/09/24 1508 Procedure Narrative Procedure Narrative: Attending Attestation: I was present for entire procedure. Low saturation of 84% with easy ability to use BVM to be oxygenate between attempts. Resident successfully able to perform direct laryngoscopy with appropriate placement on second attempt. Patient without any immediate complications and remained hemodynamically stable throughout. ET tube placement confirmed by bronchoscopy with adjustment made to ensure adequate/distance from lucius. Intubation Indication(s): acute Resp Failure and inability to protect airway Informed consent obtained: procedure done urgently Time out done, and the following verified: correct patient, side and site, p rocedure and patient position Sedative: ketamine Mg given: 70 Sedative #2: etomidate Mg Given (sedative #2): 15 Paralytic: rocuronium Mg given: 50 Laryngoscope: Ivy ET tube size: 7.5 ET tube uncuffed: Yes Tube secured depth (cm): 23 Tube secured location: other (gums) Tube placement confirmation: visualized tube passing through cords, equal breath sounds bilaterally, no breath sounds over epigastrium and confirmation by capnometry Patient tolerated procedure: well and no complications EBL(ml): 0 Intubation complications: none Additional comments: Procedure was done at bedside with Dr. Treviño in the ICU. Sedative was ketamine 70 mg at first however patient did not respond to that sedative and etomidate 15 mg was given. Paralytic was rocuronium 50 mg. Patient was bagged prior to the procedure to preoxygenated above 95%. Patient was successfully intubated and she tolerated the procedure well without complications. Procedure done at 15:00
--- NOTE | 2024-08-09 15:19 | XR_ITS ---
Examination: AP chest single view Technique one AP portable supine chest single view Exam date and time: August 09, 2024 at 1529 hours Comparison August 09, 2024 at 1653 hours INDICATIONS: Aspiration pneumonia Atelectasis right lung, hypoxic respiratory failure postintubation FINDINGS: Improved aeration in the right lung but extensive right lung pneumonia Endotracheal tube tip 2.7 cm above lucius. Orogastric tube is in the stomach, the tip is below the level of the film The stomach as remeasured air distended IMPRESSION: Improved aeration in the right lung that extensive right lung pneumonia
--- NOTE | 2024-08-09 15:19 | PD.RESPROC ---
Procedures Procedure Date / Time 08/09/24 1519 Procedure Narrative Procedure Narrative: Attending Attestation: I was present for the entire procedure. Patient tolerated procedure well with no immediate complications. Successful clearance of secretions with all orifices up to the fourth-generation cleared. ET tube was adjusted for optimal positioning above the lucius. Bronchoscopy Bronscopy indication(s): removal of secretions Informed consent obtained from: proc. done emergently Time out done and the following verified: correct patient, side and site, procedure, patient position and implants and/or equipment Oxygen delivery: via mechanical vent. Trachea: secretions noted RUL & subsegmental branches: purulent secretions RML & subsegmental branches: mucus plugging and purulent secretions RLL & subsegmental branches: mucus plugging SAM & subsegmental branches: purulent secretions LLL & subsegmental branches: purulent secretions Bronchoalveolar lavage: Obtained, send for analysis EBL: 0 Patient tolerated procedure: well Complications: No Procedure comment: A post-operative X ray is ordered, pending. I have reviewed and discussed the patient's care with my attending, Dr. Treviño, Lynn Sesay MD PGY-3
[2024-08-09 15:47] LABS: Base Excess, Venous -3 (-3-3); O2 Saturation, Venous 66 % (96-97); PCO2, Venous 44 mmHg (36-56); PO2, Venous 35 mmHg (15-58); pH, Venous 7.34 (7.33-7.66)
--- NOTE | 2024-08-09 16:20 | EVENTNT_ITS ---
Documentation for date of: 08/09/24 Event Note Event Note: At 2:30 PM on August 09, 2024 rapid response was called as the patient started to desat to the low 80s admitted to have excessive mouth drooling. auscultation of the patient's chest was congested and diffuse crackles bilaterally. Deep suctioning was done, Vitally her blood pressure was 104/76, heart rate was 126, respiratory rate was 31, O2 saturation was And patient was put on high flow nasal oxygen 40 L FiO2 of 100 and her oxygen improved to 93%. Chest x-ray was done and it showed complete opacity of the right lung with deviation of the trachea to the right side. Consultation to the ICU team and the accountant budget Dr. Fritz recommended to admit the patient to ICU for intubation and bronchoscopy. - Patient's plan and care discussed with my attending, Dr. Aura Lo MD Internal Medicine PGY-2
--- NOTE | 2024-08-09 16:39 | PD.RESCONSUL ---
HPI Data of Consult Requesting Physician: Oscar Marquis MD Admitting Provider: Oscar Marquis MD Attending Provider: Oscar Marquis MD Primary Care Provider: Physician No Primary/Family Consult Narrative Reason for consult: tachypnea History of present illness: Patient is a 69 year old female with PMH of intellectual delay, schizophrenia who presents to the ED from a snf for vomiting and aspiration after eating food earlier that day. She was admitted for sepsis due to aspiration pneumonia. Later, rapid repsonse was called for hypoxia in the 80s. Chest Xray showed opacity of the right lung with deviation of the trachea to the right, suggestive of atelectasis and mucus plugging. Patient was transferred to the ICU for intubation and bronchoscopy. cc:: cc: Oscar Marquis MD Exam Vital Signs Temp Pulse Resp BP Pulse Ox O2 Del Method O2 Flow Rate 98.0 F 118 H 15 128/69 99 Mechanical Ventilation 15 08/09/24 16:00 08/09/24 16:25 08/09/24 15:15 08/09/24 16:25 08/09/24 16:25 08/09/24 16:00 08/09/24 14:30 FiO2 100 08/09/24 16:00 Narrative Exam Constitutional: Intubated, sedated. Agitated. HEENT: NCAT. Vision grossly intact. Mucous membranes dry. Edentelous. Respiratory: Decreased breath sounds, ronchi R > L Cardiac: Tachycardic Abdomen: Soft, non-distended, non-tender. MSK: No B/L LE edema. Skin: Warm, dry, intact. Results Labs 08/12/24 05:33 08/12/24 05:33 Labs: Short CBC 08/08/24 08/09/24 Range/Units 21:10 09:45 WBC 19.6 H 22.2 H (3.6-11.0) Thou/mm3 Hgb 15.6 13.2 D (12.0-16.0) g/dL Hct 47.4 H 39.2 (36.0-46.0) % Plt Count 274 208 D (140-440) Thou/mm3 BMP 08/08/24 08/09/24 21:10 09:45 Sodium 142 145 Potassium 4.5 3.5 D Chloride 103 109 H Carbon Dioxide 30.4 28.0 BUN 21 15 Creatinine 0.6 0.5 L Glucose 113 H 97 Calcium 9.2 7.6 L D Liver Function 08/08/24 08/09/24 Range/Units 21:10 09:45 Total Bilirubin 0.3 0.4 (0.3-1.2) mg/dL AST 22 17 (0-34) U/L ALT 15 13 (10-49) U/L Alkaline Phosphatase 104 78 D (46-116) U/L Albumin 4.3 3.3 L D (3.4-4.8) gm/dL Urine 08/08/24 Range/Units 22:02 Urine Color Yellow (Lt Yel-Yel) Urine Clarity Clear (Clear/Hazy) Urine pH 5.5 (5.0-7.0) Ur Specific [place] 1.024 (1.001-1.035) Urine Protein Negative (Neg - Trace) Urine Glucose (UA) Negative (Negative) ABG Interpretation ABG results: 08/09/24 15:43 VBG pH 7.34 VBG pCO2 44 VBG pO2 35 VBG Base Excess -3 Quality Measures Quality Measures none Advance care planning discussed with:: other Medications Home Medications and Allergies Home Medications ?Medication ?Instructions ?Recorded ?Confirmed ?Type divalproex 500 mg tablet,extended 500 mg PO HS 10/06/17 08/09/24 History release 24 hr alendronate 70 mg tablet 70 mg PO DAILY 03/07/21 08/09/24 History aspirin 81 mg chewable tablet 81 mg PO .AM 05/08/24 08/09/24 History benztropine 2 mg tablet 2 mg PO BID 05/08/24 08/09/24 History mirtazapine 30 mg tablet 30 mg PO HS 05/08/24 08/09/24 History pramipexole 0.75 mg tablet 0.25 mg PO HS 05/08/24 08/09/24 History quetiapine 100 mg tablet 200 mg PO .COMPLEX 05/08/24 08/09/24 History linaclotide 72 mcg capsule 72 mcg PO QDAY 08/09/24 08/09/24 History (Linzess) valbenazine 40 mg capsule 40 mg PO QDAY 08/09/24 08/09/24 History (Ingrezza) Allergies Allergy/AdvReac Type Severity Reaction Status Date / Time No Known Allergies Allergy Verified 08/08/24 19:29 Visit Medications Acetaminophen (Acetaminophen 325 Mg Tablet) 650 mg PO Q6HR PRN PRN Reason: Fever >100.3F or pain Stop: 09/08/24 06:34 Enoxaparin Sodium (Enoxaparin Sod Inj 40 Mg/0.4 Ml Syringe) 40 mg SC DAILY JONATHAN Stop: 08/23/24 08:59 Last Admin: 08/09/24 09:13 Dose: 40 mg Famotidine (Famotidine Inj 10 Mg/Ml Vial 2 Ml) 20 mg IVP BID JONATHAN Stop: 09/08/24 08:59 Last Admin: 08/09/24 09:13 Dose: 20 mg Azithromycin 500 mg/ Sodium (Chloride) 250 mls @ 250 mls/hr IV HS JONATHAN Stop: 08/16/24 20:59 Piperacillin/Tazobactam/Dextrose (Zosyn) 3.375 gm in 50 mls @ 12.5 mls/hr IV Q8HR JONATHAN; Protocol Stop: 08/16/24 07:14 Last Admin: 08/09/24 16:09 Dose: 12.5 mls/hr Fentanyl Citrate (Sublimaze Inj 2,500 Mcg/250 Ml Bag) 2,500 mcg in 250 mls @ 2.5 mls/hr IV .Q24H PRN; Protocol PRN Reason: PER PROTOCOL Stop: 08/14/24 14:16 Last Titration: 08/09/24 16:00 Dose: 275 mcg/hr, 27.5 mls/hr Propofol (Diprivan Ivpb) 1,000 mg in 100 mls @ 1.344 mls/hr IV .Q24H PRN; Protocol PRN Reason: PER PROTOCOL Stop: 09/08/24 14:16 Last Titration: 08/09/24 16:00 Dose: 50 mcg/kg/min, 13.445 mls/hr Ondansetron HCl (Ondansetron Inj 2 Mg/Ml Inj 2 Ml) 4 mg IV Q8HR PRN; Protocol PRN Reason: NAUSEA OR VOMITING Stop: 09/08/24 06:34 Discontinued Medications Etomidate (Etomidate Inj 2 Mg/Ml Vial 10 Ml) 15 mg IVP X1 ONE Stop: 08/09/24 15:09 Last Admin: 08/09/24 14:53 Dose: 15 mg Piperacillin/Tazobactam/Dextrose (Zosyn) 3.375 gm in 50 mls @ 100 mls/hr IV X1 ONE Stop: 08/08/24 22:16 Last Infusion: 08/08/24 22:58 Dose: Infused Piperacillin/Tazobactam/Dextrose (Zosyn) 3.375 gm in 50 mls @ 100 mls/hr IV X1 ONE Stop: 08/08/24 23:10 Sodium Chloride (Ns) 1,000 mls @ 999 mls/hr IV .Q1H1M ONE Stop: 08/09/24 00:46 Last Admin: 08/09/24 00:16 Dose: 999 mls/hr Sodium Chloride (Ns) 1,000 mls @ 75 mls/hr IV .[id number] JONATHAN Stop: 09/08/24 00:02 Last Admin: 08/09/24 00:17 Dose: 75 mls/hr Azithromycin 500 mg/ Sodium (Chloride) 250 mls @ 250 mls/hr IV X1 ONE Stop: 08/09/24 01:14 Last Admin: 08/09/24 00:17 Dose: 250 mls/hr Ketamine HCl 500 mg/ Sodium (Chloride) 250 mls @ 16.806 mls/hr IV .[id number] PRN; Protocol PRN Reason: PER PROTOCOL Stop: 09/08/24 14:12 Ketamine HCl (Ketamine 50 Mg/Ml Vial 10 Ml) 70 mg IV X1 ONE Stop: 08/09/24 15:01 Last Admin: 08/09/24 14:47 Dose: 70 mg Midazolam HCl (Midazolam Inj 1 Mg/Ml Vial 2 Ml) 2 mg IV X1 ONE Stop: 08/09/24 14:35 Last Admin: 08/09/24 14:41 Dose: 2 mg Midazolam HCl (Midazolam Inj 1 Mg/Ml Vial 2 Ml) 2 mg IV X1 ONE Stop: 08/09/24 16:03 Last Admin: 08/09/24 16:00 Dose: 2 mg Rocuronium Muse (Rocuronium Inj 10 Mg/Ml Vial 10 Ml) 10 mg IVP X1 ONE Stop: 08/09/24 14:18 Rocuronium Muse (Rocuronium Inj 10 Mg/Ml Vial 10 Ml) 30 mg IVP X1 ONE Stop: 08/09/24 14:19 Rocuronium Muse (Rocuronium Inj 10 Mg/Ml Vial 10 Ml) 50 mg IV X1 ONE Stop: 08/09/24 15:09 Last Admin: 08/09/24 14:53 Dose: 50 mg Sodium Chloride (Sodium Chloride Rt 10% 15 Ml Nebu) 5 ml INH X1 ONE Stop: 08/08/24 23:38 Assessment & Plan Plan César Bush is 69yr F with PMH of intellectual disability, schizophrenia who presents to the ER from a snf for vomiting and aspiration admitted for sepsis due to aspiration pneumonia and transferred to the ICU for acute hyxpoxic respiratory failure. 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, fentanyl #Acute on chronic encephalopathy Secondary to sepsis, hypoxia in the setting of schizophrenia and intellectual disability - Propofol, fentanyl for ventilator synchrony - Restart home valproic acid - Hold home meds CARDIOVASCULAR No acute problems RESPIRATORY #Acute hypoxic respiratory failure due aspiration pneumonia CXR 08/09 shows mucus plugging and atelectasis of the right lung, improved after bronchoscope - Follow up ABG - Continue antibiotics - Daily CXR - Continue ventilator using lung protective volumes RENAL No acute problems GI #History of IBD - Hold home Linzess ENDO No acute problems HEME #Leukocytosis due to infection ID #Sepsis due to aspiration pneumonia - Sputum, blood culture pending - Azithromcyin, Zosyn Health Maintenance Disposition: Upgrade to ICU for AHRF 2/ pna Diet and fluids: NPO DVT prophylaxis: lovenox GI prophylaxis: pepcid Lines: PIV, NG CODE STATUS: FULL - Patient is conserved I have reviewed and discussed the patient's care with my attending, Dr. Treviño, Lynn Sesay MD PGY-3 Attending Provider Attestation/Addendum Patient seen and examined with the above resident, Lynn Sesay MD. I agree with the findings, assessment, and plan of care as documented except for any differences below. Patient urgently brought over to ICU for impending respiratory failure/distress. Patient ultimately required intubation for facilitation of ventilation as well as bronchoscopy for airway clearance. Patient had significant mucous plugging of the right 2nd and 3rd generation airways. This was successfully removed with patency achieved throughout. Patient remains hemodynamically stable on empiric antibiotics now for aspiration pneumonitis. Patient's psychiatric medications may be due to blame for aspiration event. Will exclude presence of other alternate etiology including suspicion for urinary tract infection as a precipitant for severe sepsis with associated encephalopathy. Follow-up on cultures to help narrow antibiotic regimen eventually. Patient placed on appropriate prophylaxis. Will hold off on tube feeds at this point as anticipate will be able to extubate in the coming 24 to 48 hours. Prior to extubation, will confirm goals of care with conservatorship. Total critical care time: I personally spent 45 minutes for review of physiologic parameters, directing plan of care, and coordination of care with other subspecialist. This is exclusive of time spent teaching housestaff or performing any separate billable procedures. Patient remains at significant risk for further morbidity and mortality warranting close monitoring and care only available in the intensive care unit. Patient receiving critical care services for acute encephalopathy, aspiration pneumonia/pneumonitis, and acute hypoxic respiratory failure.
--- NOTE | 2024-08-09 17:23 | PD.RESPRO ---
Documentation for date of: 08/09/24 Subjective Subjective Interval history: Patient was seen and examined at bedside. Patient was responding with yes or no questions, vital signs showed elevated heart rate of 94, respiratory rate of 22, and evaluation patient was noticed to have some drooling of saliva which was suctioned. As of this time patient is getting suction every 2 hours. She is maintaining saturation of 96-99 on 7 L of oxygen. Exam Vital Signs Temp Pulse Resp BP Pulse Ox O2 Del Method O2 Flow Rate 98.0 F 118 H 15 128/69 99 Mechanical Ventilation 15 08/09/24 16:00 08/09/24 16:25 08/09/24 15:15 08/09/24 16:25 08/09/24 16:25 08/09/24 16:00 08/09/24 14:30 FiO2 100 08/09/24 16:00 Narrative Exam GEN: AAO x 0, able to follow command and answer yes or no questions HEENT: NC/AC, started the oral mucosa moist with drooling of saliva, clear no food particles, neck supple CVS: RRR, S1-S2 present, no murmurs appreciated RESP: Diffuse crepitations coarsely bilaterally. GI: soft,non distended, non tender, NBS MSK: able to move all 4 limbs, no lower extremity edema SKIN: warm and dry EXCHANGE UNDERWRITING CONSULTANT: Flat mood or affect, no visible tremor, able to move all extremities. Objective Labs 08/17/24 05:28 08/17/24 05:28 Labs: Laboratory Results - last 24 hr 08/08/24 08/08/24 08/08/24 21:10 22:01 22:02 WBC 19.6 H RBC 5.01 Hgb 15.6 Hct 47.4 H MCV 95 MCH 31.1 MCHC 32.9 RDW Std Deviation 44.7 Plt Count 274 Neut % (Auto) 81 H Lymph % (Auto) 12 Williams % (Auto) 6 Eos % (Auto) 1 Baso % (Auto) 0 Neut # (Auto) 15.9 H Lymph # (Auto) 2.4 Williams # (Auto) 1.1 H Eos # (Auto) 0.1 Baso # (Auto) 0.1 Immature Gran # (Auto) 0.08 H Absolute Nucleated RBC 0.00 Immature Gran % 0 Nucleated RBC % 0 VBG pH VBG pCO2 VBG pO2 VBG O2 Sat (Annmarie) VBG Base Excess Sodium 142 Potassium 4.5 Chloride 103 Carbon Dioxide 30.4 Anion Gap 9 BUN 21 Creatinine 0.6 Estim Creat Clear Calc 57.1 L eGFR > 60 BUN/Creatinine Ratio 35 H Glucose 113 H Calculated Osmolality 287 Lactic Acid 2.1 H Calcium 9.2 Corrected Calcium 9.2 Total Bilirubin 0.3 AST 22 ALT 15 Alkaline Phosphatase 104 C-Reactive Prot, Quant < 0.5 B-Natriuretic Peptide 24 Total Protein 7.1 Albumin 4.3 Globulin 2.8 Albumin/Globulin Ratio 1.5 Procalcitonin 0.08 Ur Collection Type Catheter Urine Color Yellow Urine Clarity Clear Urine pH 5.5 Ur Specific [place] 1.024 Urine Protein Negative Urine Glucose (UA) Negative Urine Ketones 1+ A Urine Blood 1+ A Urine Nitrite Negative Urine Bilirubin Negative Urine Urobilinogen (Auto) Negative Ur Leukocyte Esterase Positive Urine RBC 4 H Urine WBC 18 H Ur Squamous Epith Cells 0 Urine Bacteria 2+ A 08/09/24 08/09/24 08/09/24 01:04 09:45 15:43 WBC 22.2 H RBC 4.26 Hgb 13.2 D Hct 39.2 MCV 92 MCH 31.0 MCHC 33.7 RDW Std Deviation 44.9 Plt Count 208 D Neut % (Auto) 83 H Lymph % (Auto) 7 L Williams % (Auto) 8 Eos % (Auto) 1 Baso % (Auto) 0 Neut # (Auto) 18.4 H Lymph # (Auto) 1.7 Williams # (Auto) 1.8 H Eos # (Auto) 0.1 Baso # (Auto) 0.1 Immature Gran # (Auto) 0.10 H Absolute Nucleated RBC 0.00 Immature Gran % 1 H Nucleated RBC % 0 VBG pH 7.34 VBG pCO2 44 VBG pO2 35 VBG O2 Sat (Annmarie) 66 L VBG Base Excess -3 Sodium 145 Potassium 3.5 D Chloride 109 H Carbon Dioxide 28.0 Anion Gap 8 BUN 15 Creatinine 0.5 L Estim Creat Clear Calc 68.6 eGFR > 60 BUN/Creatinine Ratio 30 H Glucose 97 Calculated Osmolality 289 Lactic Acid 1.3 Calcium 7.6 L D Corrected Calcium 8.2 L Total Bilirubin 0.4 AST 17 ALT 13 Alkaline Phosphatase 78 D C-Reactive Prot, Quant B-Natriuretic Peptide Total Protein 5.4 L Albumin 3.3 L D Globulin 2.1 L Albumin/Globulin Ratio 1.6 Procalcitonin Ur Collection Type Urine Color Urine Clarity Urine pH Ur Specific [place] Urine Protein Urine Glucose (UA) Urine Ketones Urine Blood Urine Nitrite Urine Bilirubin Urine Urobilinogen (Auto) Ur Leukocyte Esterase Urine RBC Urine WBC Ur Squamous Epith Cells Urine Bacteria ABG Interpretation ABG results: 08/09/24 15:43 VBG pH 7.34 VBG pCO2 44 VBG pO2 35 VBG Base Excess -3 Quality Measures Quality Measures none Advance care planning discussed with:: legal surragate Assessment & Plan Assessment Current Active Medications: Generic Name Dose Route Start Last Admin Trade Name Freq PRN Reason Stop Dose Admin Acetaminophen 650 mg 08/09/24 06:35 Acetaminophen 325 Mg Tablet PO 09/08/24 06:34 Q6HR PRN Fever >100.3F or pain Enoxaparin Sodium 40 mg 08/09/24 09:00 08/09/24 09:13 Enoxaparin Sod Inj 40 Mg/0.4 Ml Syringe SC 08/23/24 08:59 40 mg DAILY JONATHAN Administration Famotidine 20 mg 08/09/24 09:00 08/09/24 09:13 Famotidine Inj 10 Mg/Ml Vial 2 Ml IVP 09/08/24 08:59 20 mg BID JONATHAN Administration Azithromycin 500 mg/ Sodium 250 mls @ 250 mls/hr 08/09/24 21:00 Chloride IV 08/16/24 20:59 HS JONATHAN Piperacillin/Tazobactam/Dextrose 3.375 gm in 50 mls @ 12.5 mls/hr 08/09/24 07:15 08/09/24 16:09 Zosyn IV 08/16/24 07:14 12.5 mls/hr Q8HR JONATHAN Administration Protocol Fentanyl Citrate 2,500 mcg in 250 mls @ 2.5 mls/hr 08/09/24 14:17 08/09/24 16:00 Sublimaze Inj 2,500 Mcg/250 Ml Bag IV 08/14/24 14:16 275 mcg/hr .Q24H PRN 27.5 mls/hr PER PROTOCOL Titration Protocol 25 MCG/HR Propofol 1,000 mg in 100 mls @ 1.344 mls/hr 08/09/24 14:17 08/09/24 16:50 Diprivan Ivpb IV 09/08/24 14:16 45 mcg/kg/min .Q24H PRN 12.1 mls/hr PER PROTOCOL Titration Protocol 5 MCG/KG/MIN Ondansetron HCl 4 mg 08/09/24 06:35 Ondansetron Inj 2 Mg/Ml Inj 2 Ml IV 09/08/24 06:34 Q8HR PRN NAUSEA OR VOMITING Protocol Valproic Acid 500 mg 08/09/24 21:00 Valproic Acid Syrup 250 Mg/5 Ml Udc PO 09/08/24 20:59 BID [facility] Plan César Bush is 69yr F with PMH of intellectual disability, Parkinson's, schizophrenia, osteoporosis who presented to ED due to vomiting with subsequent aspiration. Caregiver was at bedside who provided information. Patient will be admitted for sepsis secondary to aspiration pneumonia. #AHRF #Sepsis 2/2 Aspiration Pneumonia #? Chemical pneumonitis secondary to gastric aspiration Presented due to vomiting with subsequent aspiration after eating pureed tacos. SIRS 3/4 (tachy 126, RR 22, WBC 19). qSOFA 1 Chest x-ray suspicious for early right base pneumonia most likely secondary to the aspiration. Sepsis due to aspiration with acute sepsis-related organ dysfunction as evidence by AHRF. At the home group that she lives in patient has her diet as pur?ed diet On examination patient was noticed to have missing the teachers. Plan ? Sputum culture pending, Blood cultures pending ? IV azithromycin 500 mg daily ?Continuous pulse oximetry ? IV Zosyn 3.375 g TID ? Aspiration precautions ? N.p.o. ? Resume IV medications only ? Suctioning q2hr ? Continue oxy mask ?Speech therapy evaluation #Bacteriuria UA Positive for leukocyte esterase, 4 RBC, 18 WBC, 2+ bacteria. Unable to assess possible symptoms due to baseline mental mental status. Unable to obtain appropriate history due to patient mental status Plan ?Patient already on IV antibiotic Zosyn and azithromycin as above ? Urine culture pending #Hx IBS ? Will hold all p.o. medications ? Start patient on MiraLAX as needed for constipation #Hx Schizophrenia ? Ingrezza 40mg ? Benztropine 2mg ? Divalproex ER 500mg ? Mirtazapine 30mg ? Pramipexole 0.25mg ? Quetiapine 200 mg Will hold all home oral medications however will resume her develop ox extended-release #Hx osteoporosis Hold home medication Aldendronate 70mg #Hx Intellectual Disability All PO meds on hold due to NPO status. Hospital Maintenance: FEN: N.p.o. DVT ppx: Heparin subcu GI ppx: Protonix IV lines: PIV Knapp: Yes Code status: Full code Dispo: MedSurg - Patient's plan and care discussed with my attending, Dr. Aura Lo MD Internal Medicine PGY-2 Attending Provider Attestation/Addendum I have examined the patient, reviewed labs and imaging findings, discussed the case with the resident(s), and reviewed entered orders. I agree with the plan of care as outlined in this note, with these additional summaries/recommendations: Patient seen at bedside. Patient admitted overnight for acute hypoxic respiratory failure secondary to aspiration pneumonia. [facility]. Patient is able to answer some questions such as her name but cannot provide any detailed history. Unfortunately patient had a rapid response today for worsening hypoxia. Patient was placed on high flow nasal cannula and chest x-ray was obtained which appears to show a trapped lung with mucous plugging in the right mainstem bronchus. ICU team was consulted and patient will be upgraded to the ICU. Continue IV antibiotics and n.p.o. status. Follow-up blood cultures. Continue home PD and schizophrenic medications. Thank you ICU team for excepting this patient under your care. Dr. Aura MD
[2024-08-09 18:06] LABS: Base Excess -2 (-3-3); HCO3 25 mEq/L (20-26); Inspired Oxygen, FIO2 100 %; O2 Saturation 99 % (91-98); PCO2 50 mmHg (32.0-48.0); PO2 149 mmHg (83-108); pH, Arterial 7.31 (7.35-7.45)
[2024-08-09 18:12] LABS: Allen Test Performed/OK; Puncture Site Right Radial
[2024-08-09] MEDS: PROPOFOL 1,000 MG IVPB 1,000 MG/100 ML VIAL 13.445 MG IV (20:30)
[2024-08-09] MEDS: VALPROIC ACID SYRUP 250 MG/5 ML UDC 500 MG PO (21:24)
[2024-08-09] MEDS: RINGERS LACTATED 1000 ML 500 ML 999 ML IV (23:09)
[2024-08-10] VITALS (113 sets, daily range): BP systolic 55–162; BP diastolic 27–99; PULSE 57–118; RESP 6–156; TEMP 36.3–36.8; O2SAT 93–100; BMI 21.1; BMI 21.2
[2024-08-10] MEDS: Norepinephrine/D5W 8mg/250ml 8 MG/250 ML BAG 4.275 MG IV
[2024-08-10 04:47] LABS: Base Excess 1 (-3-3); HCO3 28 mEq/L (20-26); Inspired Oxygen, FIO2 60 %; O2 Saturation 100 % (91-98); PCO2 57 mmHg (32.0-48.0); PO2 156 mmHg (83-108)
[2024-08-10 04:48] LABS: Allen Test Performed/OK; Puncture Site Right Radial
[2024-08-10] MEDS: PIPER/TAZO 3.375 GM PREMIX 3.375 GM/50 ML BAG IV ×3 (05:06→21:28)
[2024-08-10 06:13] LABS: Basophils # (Auto) 0.1 Thou/mm3 (0.0-0.2); Basophils % (Auto) 1 % (0-2.5); Eosinophils # (Auto) 0.2 Thou/mm3 (0.0-0.5); Eosinophils % (Auto) 1 % (0-10); Hematocrit 37.1 % (36.0-46.0); Hemoglobin 11.7 g/dL (12.0-16.0); Immature Granulocytes % (Auto) 1 % (0-0); Immature Granulocytes Auto 0.11 Thou/mm3 (0.00-0.00); Lymphocytes % (Auto) 14 % (10-50); Mean Corpuscular HGB Conc 31.5 g/dl (31.0-37.0); Mean Corpuscular Volume 98 fL (80-100); Monocytes # (Auto) 1.7 Thou/mm3 (0.0-0.8); Monocytes % (Auto) 8 % (0-12); Neutrophils # (Auto) 15.7 Thou/mm3 (1.8-7.7); Neutrophils % (Auto) 76 % (37-80); Nucleated Red Blood Cell % 0 /100 WBC (0); Platelet Count 196 Thou/mm3 (140-440); RDW Standard Deviation 48.5 fL (36.4-46.3); Red Blood Count 3.78 Miln/mm3 (4.00-5.20); White Blood Count 20.8 Thou/mm3 (3.6-11.0)
[2024-08-10] MEDS: fentaNYL 2,500 MCG/250 ML BAG 2,500 MCG/250 ML BAG 7.5 MCG IV (06:20)
--- NOTE | 2024-08-10 06:31 | XR_ITS ---
Examination: AP chest single view TECHNIQUE: AP portable semiupright chest single view Exam date and time: August 10, 2024, 0708 hours Comparison August 09, 2024 INDICATION: Shortness of breath today, hypoxic respiratory failure, post intubation, pneumonia on earlier chest films is relate FINDINGS: Normal heart size Pneumonia and some volume loss in the right lung Moderate vascular congestion. Endotracheal tube tip 3 cm above lucius. Orogastric tube tip distal stomach versus duodenal bulb Prominent osteopenia Old right-sided rib fractures The film is rotated RPO IMPRESSION: Again noted pneumonia and some volume loss in the right lung Endotracheal tube tip 3 cm above lucius
[2024-08-10 06:43] LABS: Alanine Aminotransferase 24 U/L (10-49); Albumin, Serum 3.1 gm/dL (3.4-4.8); Albumin/Globulin Ratio 1.5 (1.2-2.2); Alkaline Phosphatase 80 U/L (46-116); Anion Gap 8 (7-16); Aspartate Amino Transferase 29 U/L (0-34); BUN/Creatinine Ratio 30 Ratio (12-20); Bilirubin,Total 0.4 mg/dL (0.3-1.2); Blood Urea Nitrogen 18 mg/dL (9-23); Calcium 7.6 mg/dL (8.3-10.6); Calcium (Corrected) 8.3 mg/dL (8.5-10.1); Carbon Dioxide 28.7 mMol/L (20.0-31.0); Chloride 108 mMol/L (98-107); Creatinine (Component) 0.6 mg/dL (0.6-1.3); Estimated Creatinine Clearance 57.1 mL/min (>60); Globulin 2.1 gm/dL (2.3-3.5); Glucose 95 mg/dL (74-106); Magnesium 1.8 mg/dL (1.6-2.6); Osmolality,Calculated 290 (275-295); Phosphorous 1.9 mg/dL (2.4-5.1); Potassium 3.7 mMol/L (3.4-5.1); Sodium 145 mMol/L (136-145); Total Protein 5.2 gm/dL (5.7-8.2); eGFR > 60 See Note
[2024-08-10] MEDS: CALCIUM GLUC/NS 1000MG IVPB 1,000 MG/50 ML BAG 50 MG IV (07:59)
[2024-08-10] MEDS: VALPROIC ACID SYRUP 250 MG/5 ML UDC 500 MG PO ×2 (08:08→21:28)
[2024-08-10] MEDS: NAPH,KPH MBDB 1 PACKET (1.5 GM) PO (08:08)
[2024-08-10] MEDS: ENOXAPARIN SOD INJ 40 MG/0.4 ML SYRINGE SC (08:08)
[2024-08-10] MEDS: FAMOTIDINE INJ 10 MG/ML VIAL 2 ML 20 MG IVP ×2 (08:09→21:28)
--- NOTE | 2024-08-10 09:22 | ESPR_ITS ---
Documentation for date of: 08/10/24 Subjective Subjective Interval history: Patient is a 69 year old female with PMH of intellectual delay, schizophrenia who presents to the ED from a residential for vomiting and aspiration after eating food earlier that day. She was admitted for sepsis due to aspiration pneumonia. Later, rapid repsonse was called for hypoxia in the 80s. Chest Xray showed opacity of the right lung with deviation of the trachea to the right, suggestive of atelectasis and mucus plugging. Patient was transferred to the ICU for intubation and bronchoscopy. 08/10/2024: Patient seen and examined in the ICU today. There were no major overnight events and patient remains intubated this morning. Patient's requirements on the vents have been slowly coming down and she is doing well on VT of 400, FiO2 40% and RR of 18. Her CXR shows great improvement of her right lung field after removal of the mucus plug. She is able to open her eyes when spoken to. Sedation was weaned off and patient was placed on pressure support however she was not breathing on her own and hence the vent begun delivering apneic breathing. Despite prompting patient did not breathe adequately on her own. We will try to keep sedation off overnight and attempt SBT again tomorrow. Dr Smith is the guardian and decision maker of the patient and was updated on the status. Exam Vital Signs Temp Pulse Resp BP Pulse Ox O2 Del Method O2 Flow Rate 98.3 F 62 21 H 161/69 H 100 Mechanical Ventilation 15 08/10/24 08:03 08/10/24 09:00 08/09/24 19:30 08/10/24 09:00 08/10/24 09:00 08/09/24 16:00 08/09/24 14:30 FiO2 40 08/10/24 08:00 Narrative Exam Constitutional: Patient is resting well intubated and mechanically ventilated. CVS: RRR, S1 and S2 present, no murmurs, rubs or gallops . RESP: CTAB, no SOB, no rales, rhonchi or wheezing. No respiratory Distress GI: Normal BS, Nontender/Nondistended. MSK: Full range of motion, No trauma or deformities or masses. Skin: Warm to touch, Dry. No rashes or lesions. Neuro/psych: Awake and tracking today. Objective Labs 08/11/24 04:49 08/11/24 04:49 Labs: Laboratory Results - last 24 hr 08/09/24 08/09/24 08/09/24 09:45 15:43 17:53 WBC 22.2 H RBC 4.26 Hgb 13.2 D Hct 39.2 MCV 92 MCH 31.0 MCHC 33.7 RDW Std Deviation 44.9 Plt Count 208 D Neut % (Auto) 83 H Lymph % (Auto) 7 L [place] % (Auto) 8 Eos % (Auto) 1 Baso % (Auto) 0 Neut # (Auto) 18.4 H Lymph # (Auto) 1.7 [place] # (Auto) 1.8 H Eos # (Auto) 0.1 Baso # (Auto) 0.1 Immature Gran # (Auto) 0.10 H Absolute Nucleated RBC 0.00 Immature Gran % 1 H Nucleated RBC % 0 Puncture Site Right Radial ABG pH 7.31 L ABG pCO2 50 H ABG pO2 149 H ABG HCO3 25 ABG O2 Saturation 99 H ABG Base Excess -2 VBG pH 7.34 VBG pCO2 44 VBG pO2 35 VBG O2 Sat (Annmarie) 66 L VBG Base Excess -3 FiO2 100 Sodium 145 Potassium 3.5 D Chloride 109 H Carbon Dioxide 28.0 Anion Gap 8 BUN 15 Creatinine 0.5 L Estim Creat Clear Calc 68.6 eGFR > 60 BUN/Creatinine Ratio 30 H Glucose 97 Calculated Osmolality 289 Calcium 7.6 L D Corrected Calcium 8.2 L Phosphorus Magnesium Total Bilirubin 0.4 AST 17 ALT 13 Alkaline Phosphatase 78 D Total Protein 5.4 L Albumin 3.3 L D Globulin 2.1 L Albumin/Globulin Ratio 1.6 08/10/24 08/10/24 04:39 05:08 WBC 20.8 H RBC 3.78 L Hgb 11.7 L Hct 37.1 MCV 98 MCH 31.0 MCHC 31.5 RDW Std Deviation 48.5 H Plt Count 196 Neut % (Auto) 76 Lymph % (Auto) 14 [place] % (Auto) 8 Eos % (Auto) 1 Baso % (Auto) 1 Neut # (Auto) 15.7 H Lymph # (Auto) 3.0 [place] # (Auto) 1.7 H Eos # (Auto) 0.2 Baso # (Auto) 0.1 Immature Gran # (Auto) 0.11 H Absolute Nucleated RBC 0.00 Immature Gran % 1 H Nucleated RBC % 0 Puncture Site Right Radial ABG pH 7.30 L ABG pCO2 57 H ABG pO2 156 H ABG HCO3 28 H ABG O2 Saturation 100 H ABG Base Excess 1 VBG pH VBG pCO2 VBG pO2 VBG O2 Sat (Annmarie) VBG Base Excess FiO2 60 Sodium 145 Potassium 3.7 Chloride 108 H Carbon Dioxide 28.7 Anion Gap 8 BUN 18 Creatinine 0.6 Estim Creat Clear Calc 57.1 L eGFR > 60 BUN/Creatinine Ratio 30 H Glucose 95 Calculated Osmolality 290 Calcium 7.6 L Corrected Calcium 8.3 L Phosphorus 1.9 L Magnesium 1.8 Total Bilirubin 0.4 AST 29 ALT 24 Alkaline Phosphatase 80 Total Protein 5.2 L Albumin 3.1 L Globulin 2.1 L Albumin/Globulin Ratio 1.5 ABG Interpretation ABG results: 08/09/24 08/09/24 08/10/24 15:43 17:53 04:39 ABG pH 7.31 L 7.30 L ABG pCO2 50 H 57 H ABG pO2 149 H 156 H ABG HCO3 25 28 H ABG O2 Saturation 99 H 100 H ABG Base Excess -2 1 VBG pH 7.34 VBG pCO2 44 VBG pO2 35 VBG Base Excess -3 Quality Measures Quality Measures none Advance care planning discussed with:: other (Dr Smith) Assessment & Plan Assessment Current Active Medications: Generic Name Dose Route Start Last Admin Trade Name Freq PRN Reason Stop Dose Admin Acetaminophen 650 mg 08/09/24 06:35 Acetaminophen 325 Mg Tablet PO 09/08/24 06:34 Q6HR PRN Fever >100.3F or pain Enoxaparin Sodium 40 mg 08/09/24 09:00 08/10/24 08:08 Enoxaparin Sod Inj 40 Mg/0.4 Ml Syringe SC 08/23/24 08:59 40 mg DAILY JONATHAN Administration Famotidine 20 mg 08/09/24 09:00 08/10/24 08:09 Famotidine Inj 10 Mg/Ml Vial 2 Ml IVP 09/08/24 08:59 20 mg BID JONATHAN Administration Azithromycin 500 mg/ Sodium 250 mls @ 250 mls/hr 08/09/24 21:00 08/09/24 22:30 Chloride IV 08/16/24 20:59 Infused HS JONATHAN Infusion Piperacillin/Tazobactam/Dextrose 3.375 gm in 50 mls @ 12.5 mls/hr 08/09/24 07:15 08/10/24 05:06 Zosyn IV 08/16/24 07:14 12.5 mls/hr Q8HR JONATHAN Administration Protocol Fentanyl Citrate 2,500 mcg in 250 mls @ 2.5 mls/hr 08/09/24 14:17 08/10/24 09:00 Sublimaze Inj 2,500 Mcg/250 Ml Bag IV 08/14/24 14:16 75 mcg/hr .Q24H PRN 7.5 mls/hr PER PROTOCOL Titration Protocol 25 MCG/HR Propofol 1,000 mg in 100 mls @ 1.344 mls/hr 08/09/24 14:17 08/10/24 09:00 Diprivan Ivpb IV 09/08/24 14:16 25 mcg/kg/min .Q24H PRN 6.722 mls/hr PER PROTOCOL Titration Protocol 5 MCG/KG/MIN Norepinephrine/Dextrose 8 mg in 250 mls @ 4.275 mls/hr 08/10/24 00:10 08/10/24 09:20 Levophed In D5w 8mg/250ml IV 09/09/24 00:09 0.05 mcg/kg/min .Q24H PRN 4.275 mls/hr PER PROTOCOL Titration Protocol 0.05 MCG/KG/MIN Ondansetron HCl 4 mg 08/09/24 06:35 Ondansetron Inj 2 Mg/Ml Inj 2 Ml IV 09/08/24 06:34 Q8HR PRN NAUSEA OR VOMITING Protocol Valproic Acid 500 mg 08/09/24 21:00 08/10/24 08:08 Valproic Acid Syrup 250 Mg/5 Ml Udc PO 09/08/24 20:59 500 mg BID JONATHAN Administration Plan César Bush is 69yr F with PMH of intellectual disability, schizophrenia who presents to the ER from a residential for vomiting and aspiration admitted for sepsis due to aspiration pneumonia and transferred to the ICU for acute hyxpoxic respiratory failure. 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, fentanyl #Acute on chronic encephalopathy Secondary to sepsis, hypoxia in the setting of schizophrenia and intellectual disability - Propofol, fentanyl for ventilator synchrony - Restart home valproic acid - Weaning off sedation as tolerated CARDIOVASCULAR #Hypotension likey under the setting of sedation Patient's BP improved once sedation was weaned off RESPIRATORY #Acute hypoxic respiratory failure due aspiration pneumonia CXR 08/09 shows mucus plugging and atelectasis of the right lung, improved after bronchoscope - Follow up ABG - Continue antibiotics - Daily CXR - Continue ventilator using lung protective volumes RENAL No acute problems GI #History of IBD - Hold home [facility] ENDO No acute problems HEME #Leukocytosis due to infection ID #Sepsis due to aspiration pneumonia - Sputum, blood culture pending - Azithromcyin, Zosyn Health Maintenance Disposition: Upgrade to ICU for AHRF 2/2 pna Diet and fluids: NPO DVT prophylaxis: lovenox GI prophylaxis: pepcid Lines: PIV, NG CODE STATUS: FULL - Patient is conserved I have reviewed and discussed the patient's care with my attending, Dr. Treviño, Ilan Storm MD PGY-3 Attending Provider Attestation/Addendum Patient seen and examined with above resident, Ilan Storm MD. I agree with the findings, assessment, and plan of care as documented except for any differences below. Patient continues to improve overnight with reexpansion of the right lung after adequate clearance of obstruction secondary to aspiration of likely oral secretions. Antibiotics remain appropriate. Patient remains apneic on spontaneous breathing trial. Will plan for additional 24 hours on positive pressure ventilation prior to attempt weaning once again. Patient remains hemodynamically stable although she did require low-dose pressors secondary to hypotension from sedation with propofol and fentanyl. Patient remains on appropriate prophylaxis, will hold off on tube feeds given likely ability to extubate in the next 24 hours. Will need formal speech and swallow evaluation prior to resumption of diet. Patient's neuro/psych medications will need to be adjusted to avoid oversedation as a potential confounder for reason for aspiration. Patient was initially thought to have urinary tract infection as cause of severe sepsis though this may be a combination of her other comorbidities with superimposed infection. All of these have been adequately addressed. Spontaneous awake trial tolerated well with cessation of propofol and she remains calm and appears to be at baseline neurologic status though she is not really responsive to our commands. She does have an intact gag and cough reflex. Prior to extubation we will confirm with conservatorship, that the patient remains full code or if they have decided that they would like to transition to DNR/DNI with no intention to reintubate should she fail. Total critical care time: I personally spent 35 minutes for review of physiologic parameters and directing plan of care throughout the day. This is exclusive of time spent teaching housestaff or performing separate billable procedures. Patient remains at significant risk for further morbidity and mortality warranting close monitoring and care only available in the ICU. Patient requires critical care services for acute hypoxic respiratory failure and severe sepsis with aspiration pneumonia and urinary tract infection.
--- NOTE | 2024-08-10 10:29 | PC.DIETICIAN ---
Nutrition prescription When indicated, consider: Jevity 1.2 at 25 ml/hr via OG tube by pump. Advance 10 ml every 8 hrs to goal rate of 45 ml/hr x 24 hrs. If no IV fluids, water flushes of 25 ml/hr (or per MD).
--- NOTE | 2024-08-10 13:46 | PC.SS ---
Update: Patient is intubated/sedated. Patient receiving IV antibiotics. Patient is NPO. No skin issues. Patient is afebrile. Patient aligned with CV services.
[2024-08-10] MEDS: PROPOFOL 1,000 MG IVPB 1,000 MG/100 ML VIAL 1.344 MG IV (18:27)
[2024-08-10] MEDS: RINGERS LACTATED 1000 ML 1,000 ML 999 ML IV (19:28)
[2024-08-10] MEDS: AZITHROMYCIN INJ 500 MG in SODIUM CHLORIDE 0.9% 250 ML 250 ML 250 MG IV (21:31)
[2024-08-11] VITALS (51 sets, daily range): BP systolic 86–158; BP diastolic 44–95; PULSE 10–97; RESP 4–24; TEMP 36.2–36.7; O2SAT 92–100
[2024-08-11 03:41] LABS: Base Excess 3 (-3-3); HCO3 29 mEq/L (20-26); Inspired Oxygen, FIO2 21 %; O2 Saturation 100 % (91-98); PCO2 47 mmHg (32.0-48.0); PO2 155 mmHg (83-108)
[2024-08-11 03:45] LABS: Allen Test Performed/OK; Puncture Site Right Radial
[2024-08-11] MEDS: fentaNYL 2,500 MCG/250 ML BAG 2,500 MCG/250 ML BAG 17.5 MCG IV (04:00)
[2024-08-11] MEDS: PIPER/TAZO 3.375 GM PREMIX 3.375 GM/50 ML BAG IV ×3 (06:00→21:27)
[2024-08-11 06:17] LABS: Basophils % (Auto) 1 % (0-2.5); Eosinophils # (Auto) 0.2 Thou/mm3 (0.0-0.5); Eosinophils % (Auto) 2 % (0-10); Hemoglobin 10.8 g/dL (12.0-16.0); Immature Granulocytes % (Auto) 0 % (0-0); Immature Granulocytes Auto 0.03 Thou/mm3 (0.00-0.00); Lymphocytes % (Auto) 24 % (10-50); Mean Corpuscular HGB Conc 33.8 g/dl (31.0-37.0); Mean Corpuscular Hemoglobin 31.4 pg (25.0-35.0); Mean Corpuscular Volume 93 fL (80-100); Monocytes # (Auto) 0.7 Thou/mm3 (0.0-0.8); Monocytes % (Auto) 8 % (0-12); Neutrophils # (Auto) 5.2 Thou/mm3 (1.8-7.7); Neutrophils % (Auto) 64 % (37-80); Nucleated Red Blood Cell % 0 /100 WBC (0); Platelet Count 202 Thou/mm3 (140-440); RDW Standard Deviation 44.9 fL (36.4-46.3); Red Blood Count 3.44 Miln/mm3 (4.00-5.20); White Blood Count 8.1 Thou/mm3 (3.6-11.0)
--- NOTE | 2024-08-11 06:53 | XR_ITS ---
Examination: AP chest single view TECHNIQUE: AP portable semiupright chest single view Exam date and time: August 11, 2024 0743 hours Comparison August 10, 2024 INDICATIONS: Acute hypoxic respiratory failure history this week, pneumonia right lung with volume loss FINDINGS: Normal heart size Significant right lung and mild left base pneumonia Endotracheal tube tip 33 mm above lucius. The orogastric tube is in the stomach IMPRESSION: Significant right lung pneumonia, mild left base pneumonia
[2024-08-11 07:22] LABS: Alanine Aminotransferase 16 U/L (10-49); Albumin, Serum 2.9 gm/dL (3.4-4.8); Albumin/Globulin Ratio 1.5 (1.2-2.2); Alkaline Phosphatase 76 U/L (46-116); Anion Gap 7 (7-16); Aspartate Amino Transferase 21 U/L (0-34); BUN/Creatinine Ratio 30 Ratio (12-20); Bilirubin,Total 0.2 mg/dL (0.3-1.2); Blood Urea Nitrogen 12 mg/dL (9-23); Calcium 7.8 mg/dL (8.3-10.6); Calcium (Corrected) 8.7 mg/dL (8.5-10.1); Carbon Dioxide 28.9 mMol/L (20.0-31.0); Chloride 108 mMol/L (98-107); Creatinine (Component) 0.4 mg/dL (0.6-1.3); Estimated Creatinine Clearance 80.9 mL/min (>60); Glucose 70 mg/dL (74-106); Magnesium 1.8 mg/dL (1.6-2.6); Osmolality,Calculated 284 (275-295); Phosphorous 1.9 mg/dL (2.4-5.1); Potassium 3.6 mMol/L (3.4-5.1); Sodium 144 mMol/L (136-145); Total Protein 4.9 gm/dL (5.7-8.2); eGFR > 60 See Note
[2024-08-11] MEDS: VALPROIC ACID SYRUP 250 MG/5 ML UDC 500 MG PO (08:06)
[2024-08-11] MEDS: ENOXAPARIN SOD INJ 40 MG/0.4 ML SYRINGE SC (08:06)
[2024-08-11] MEDS: ASPIRIN 81 MG CHEW GT (08:06)
[2024-08-11] MEDS: FAMOTIDINE INJ 10 MG/ML VIAL 2 ML 20 MG IVP (08:06)
--- NOTE | 2024-08-11 09:48 | ESPR_ITS ---
Documentation for date of: 08/11/24 Subjective Subjective Interval history: Patient is a 69 year old female with PMH of intellectual delay, schizophrenia who presents to the ED from a assisted for vomiting and aspiration after eating food earlier that day. She was admitted for sepsis due to aspiration pneumonia. Later, rapid repsonse was called for hypoxia in the 80s. Chest Xray showed opacity of the right lung with deviation of the trachea to the right, suggestive of atelectasis and mucus plugging. Patient was transferred to the ICU for intubation and bronchoscopy. 08/10/2024: Patient seen and examined in the ICU today. There were no major overnight events and patient remains intubated this morning. Patient's requirements on the vents have been slowly coming down and she is doing well on VT of 400, FiO2 40% and RR of 18. Her CXR shows great improvement of her right lung field after removal of the mucus plug. She is able to open her eyes when spoken to. Sedation was weaned off and patient was placed on pressure support however she was not breathing on her own and hence the vent begun delivering apneic breathing. Despite prompting patient did not breathe adequately on her own. We will try to keep sedation off overnight and attempt SBT again tomorrow. Dr Smith is the guardian and decision maker of the patient and was updated on the status. 08/11/2024: Patient seen and examined in the ICU today. There were no major overnight events and patient was resting comfortably this morning. Patient's CXR continued to improve greatly this morning and ABG showed great ventilation. Patient was placed on SBT and passed with adequate tidal volumes and RR. She was successfully extubated at 9:43 and placed on NC. Patient was saturating well on 04% on 3L NC. She was subsequently downgraded and we recommend her psychiatric medications to be restarted gradually to avoid over sedation and decrease the possibility of another episode of aspiration. Exam Vital Signs Temp Pulse Resp BP Pulse Ox O2 Del Method O2 Flow Rate 97.6 F 78 21 H 126/61 100 Mechanical Ventilation 15 08/11/24 08:00 08/11/24 09:15 08/10/24 19:00 08/11/24 09:15 08/11/24 09:15 08/10/24 10:30 08/09/24 14:30 FiO2 40 08/11/24 08:00 Narrative Exam Constitutional: Patient is resting well in no acute distress CVS: RRR, S1 and S2 present, no murmurs, rubs or gallops . RESP: CTAB, no SOB, no rales, rhonchi or wheezing. No respiratory Distress GI: Normal BS, Nontender/Nondistended. MSK: Full range of motion, No trauma or deformities or masses. Skin: Warm to touch, Dry. No rashes or lesions. Neuro/psych: Awake and tracking today. Objective Labs 08/12/24 05:33 08/12/24 05:33 Labs: Laboratory Results - last 24 hr 08/11/24 08/11/24 03:20 04:49 WBC 8.1 D RBC 3.44 L Hgb 10.8 L Hct 32.0 L MCV 93 MCH 31.4 MCHC 33.8 RDW Std Deviation 44.9 Plt Count 202 Neut % (Auto) 64 Lymph % (Auto) 24 [place] % (Auto) 8 Eos % (Auto) 2 Baso % (Auto) 1 Neut # (Auto) 5.2 Lymph # (Auto) 2.0 [place] # (Auto) 0.7 Eos # (Auto) 0.2 Baso # (Auto) 0.0 Immature Gran # (Auto) 0.03 H Absolute Nucleated RBC 0.00 Immature Gran % 0 Nucleated RBC % 0 Puncture Site Right Radial ABG pH 7.40 D ABG pCO2 47 D ABG pO2 155 H ABG HCO3 29 H ABG O2 Saturation 100 H ABG Base Excess 3 FiO2 21 Sodium 144 Potassium 3.6 Chloride 108 H Carbon Dioxide 28.9 Anion Gap 7 BUN 12 Creatinine 0.4 L Estim Creat Clear Calc 80.9 eGFR > 60 BUN/Creatinine Ratio 30 H Glucose 70 L Calculated Osmolality 284 Calcium 7.8 L Corrected Calcium 8.7 Phosphorus 1.9 L Magnesium 1.8 Total Bilirubin 0.2 L AST 21 ALT 16 Alkaline Phosphatase 76 Total Protein 4.9 L Albumin 2.9 L Globulin 2.0 L Albumin/Globulin Ratio 1.5 ABG Interpretation ABG results: 08/09/24 08/09/24 08/10/24 15:43 17:53 04:39 ABG pH 7.31 L 7.30 L ABG pCO2 50 H 57 H ABG pO2 149 H 156 H ABG HCO3 25 28 H ABG O2 Saturation 99 H 100 H ABG Base Excess -2 1 VBG pH 7.34 VBG pCO2 44 VBG pO2 35 VBG Base Excess -3 08/11/24 03:20 ABG pH 7.40 D ABG pCO2 47 D ABG pO2 155 H ABG HCO3 29 H ABG O2 Saturation 100 H ABG Base Excess 3 VBG pH VBG pCO2 VBG pO2 VBG Base Excess Quality Measures Quality Measures none Advance care planning discussed with:: other (Conservatorship) Assessment & Plan Assessment Current Active Medications: Generic Name Dose Route Start Last Admin Trade Name Freq PRN Reason Stop Dose Admin Acetaminophen 650 mg 08/09/24 06:35 Acetaminophen 325 Mg Tablet PO 09/08/24 06:34 Q6HR PRN Fever >100.3F or pain Aspirin 81 mg 08/11/24 09:00 08/11/24 08:06 Aspirin 81 Mg Chew GT 09/10/24 08:59 81 mg QDAY JONATHAN Administration Enoxaparin Sodium 40 mg 08/09/24 09:00 08/11/24 08:06 Enoxaparin Sod Inj 40 Mg/0.4 Ml Syringe SC 08/23/24 08:59 40 mg DAILY JONATHAN Administration Famotidine 20 mg 08/09/24 09:00 08/11/24 08:06 Famotidine Inj 10 Mg/Ml Vial 2 Ml IVP 09/08/24 08:59 20 mg BID JONATHAN Administration Azithromycin 500 mg/ Sodium 250 mls @ 250 mls/hr 08/09/24 21:00 08/11/24 00:43 Chloride IV 08/16/24 20:59 Infused HS JONATHAN Infusion Piperacillin/Tazobactam/Dextrose 3.375 gm in 50 mls @ 12.5 mls/hr 08/09/24 07:15 08/11/24 06:00 Zosyn IV 08/16/24 07:14 12.5 mls/hr Q8HR JONATHAN Administration Protocol Fentanyl Citrate 2,500 mcg in 250 mls @ 2.5 mls/hr 08/09/24 14:17 08/11/24 07:45 Sublimaze Inj 2,500 Mcg/250 Ml Bag IV 08/14/24 14:16 0 mcg/hr .Q24H PRN 0 mls/hr PER PROTOCOL Titration Protocol 25 MCG/HR Propofol 1,000 mg in 100 mls @ 1.344 mls/hr 08/09/24 14:17 08/11/24 07:10 Diprivan Ivpb IV 09/08/24 14:16 0 mcg/kg/min .Q24H PRN 0 mls/hr PER PROTOCOL Titration Protocol 5 MCG/KG/MIN Norepinephrine/Dextrose 8 mg in 250 mls @ 4.275 mls/hr 08/10/24 00:10 08/11/24 07:35 Levophed In D5w 8mg/250ml IV 09/09/24 00:09 0.01 mcg/kg/min .Q24H PRN 0.855 mls/hr PER PROTOCOL Titration Protocol 0.05 MCG/KG/MIN Mirtazapine 30 mg 08/11/24 21:00 Mirtazapine 15 Mg Tablet PO 09/10/24 20:59 HS JONATHAN Ondansetron HCl 4 mg 08/09/24 06:35 Ondansetron Inj 2 Mg/Ml Inj 2 Ml IV 09/08/24 06:34 Q8HR PRN NAUSEA OR VOMITING Protocol Valproic Acid 500 mg 08/09/24 21:00 08/11/24 08:06 Valproic Acid Syrup 250 Mg/5 Ml Udc PO 09/08/24 20:59 500 mg BID JONATHAN Administration Plan César Bush is 69yr F with PMH of intellectual disability, schizophrenia who presents to the ER from a assisted for vomiting and aspiration admitted for sepsis due to aspiration pneumonia and transferred to the ICU for acute hyxpoxic respiratory failure. 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 #Acute on chronic encephalopathy - resolving Secondary to sepsis, hypoxia in the setting of schizophrenia and intellectual disability - weaned off sedation completely - Restart home valproic acid - Restart home antipsychotics slowly and avoid over sedation (mirtazipine, seroquel and pramipexole) - Aspiration precautions CARDIOVASCULAR #Hypotension - resolved likey under the setting of sedation Patient's BP improved once sedation was weaned off RESPIRATORY #Acute hypoxic respiratory failure due aspiration pneumonia - improving CXR 08/09 shows mucus plugging and atelectasis of the right lung, improved after bronchoscope - Follow up ABG - Continue antibiotics - Daily CXR - Patient extubated today 08/11/24 at 9:43 am. RENAL No acute problems GI Patient will need speech reeval prior to restarting diet #History of IBD - Hold home [facility] ENDO No acute problems HEME #Leukocytosis downtrended ID #Sepsis due to aspiration pneumonia - FINAL Sputum, blood culture pending and BAL cultures pending - Azithromcyin, Zosyn Health Maintenance Disposition: Upgrade to ICU for AHRF 2/2 pna Diet and fluids: speech eval before restarting diet DVT prophylaxis: lovenox GI prophylaxis: pepcid Lines: PIV, NG CODE STATUS: FULL - Patient is conserved I have reviewed and discussed the patient's care with my attending, Dr. Treviño, Ilan Storm MD PGY-3 Attending Provider Attestation/Addendum Patient seen and examined with above resident, Ilan Storm MD. I agree with the findings, assessment, and plan of care as documented except for any differences below. Patient with significant improvement in gas exchange and actually tolerated spontaneous breathing trial this morning. Successfully weaned to nasal cannula. Will continue to monitor throughout the day and if stable will be able to transfer to medicine sena for ongoing management. Precipitating event seems to be combination of her psychiatric medications as well as potential underlying infection. She remains on appropriate antibiotic coverage with azithromycin and Zosyn. Prior to reinitiation of diet patient will need speech evaluation as aspiration may be due to functional reasons though I favor it was due to change in neurologic status with subsequent aspiration and leading to acute hypoxic respiratory failure. Reviewed by resident suggested there was changes medication regiment which could be playing. This will need to be addressed in the coming days to ensure it she is on a safe regimen before she has returned to her care facility. Total critical care time: Personally spent 40 minutes for review of physiologic parameters, directing plan of care including weaning of mechanical ventilation/extubation, and coordination of care with other specialists. This is exclusive of time spent teaching housestaff or performing any separate billable procedures. Patient remained at significant risk for further morbidity and mortality warranting close monitoring and care only available in the ICU. Patient received critical care services for acute hypoxic respiratory failure secondary to aspiration pneumonia and acute encephalopathy.
--- NOTE | 2024-08-11 14:59 | PCS.ST ---
Swallow Re-Evaluation completed. Recommend Video-fluorscopy swallow study (MBS) to further asses pharyngeal function for aspiration risks and diet modifications needed.
--- NOTE | 2024-08-11 16:31 | ESPR_ITS ---
<Statement entered by Bebe Lo MD - 08/11/24 18:14> Patient was seen and examined at bedside, patient undergone intubation and bronchoscopy after she was aspirated and suffered from right lung collapse. Patient at this time saturating on 3 L of oxygen 95%. Speech eval recommended to keep the patient n.p.o. for videofluoroscopy tomorrow. At this time we will hold on her psych meds to keep her mentation appropriate for the procedure. After the procedure and if patient cleared by speech therapist will try to resume her psych meds slowly. - Patient's plan and care discussed with my attending, Dr. Lacy Lo MD Internal Medicine PGY-2 Documentation for date of: 08/11/24 Subjective Subjective Interval history: Pt examined at bedside today. Pt is currently extubated and is on room air. Vitals are stable at this time, and pt appears to be comfortable at this time. Pt will be downgraded from ICU and resume care on MedSurg. Exam Vital Signs Temp Pulse Resp BP Pulse Ox O2 Del Method O2 Flow Rate 98.0 F 88 21 H 118/74 100 Mechanical Ventilation 3 08/11/24 16:00 08/11/24 16:00 08/11/24 16:00 08/11/24 16:00 08/11/24 16:00 08/10/24 10:30 08/11/24 12:00 FiO2 40 08/11/24 08:00 Narrative Exam General: AAOx2, NAD, intellectual disability HEENT: Moist mucous membranes, conjunctiva clear, EOMI, PERRLA, Cardiovascular: S1, S2, radial pulses +2 bilat, RRR Pulmonary: Appears to have some secretions at his time GI: No tenderness to light or deep palpitation, no guarding, rigidity, rebound tenderness or distension Extremities: No presence of trace or pitting edema in lower extremities bilaterally, dorsalis pedis pulses +2 bilaterally Neuro: AAOx2, no focal motor or sensory deficits in the UE or LE bilat Psych: Able to cooperate Objective Labs 08/12/24 05:33 08/12/24 05:33 Labs: Laboratory Results - last 24 hr 08/11/24 08/11/24 03:20 04:49 WBC 8.1 D RBC 3.44 L Hgb 10.8 L Hct 32.0 L MCV 93 MCH 31.4 MCHC 33.8 RDW Std Deviation 44.9 Plt Count 202 Neut % (Auto) 64 Lymph % (Auto) 24 [place] % (Auto) 8 Eos % (Auto) 2 Baso % (Auto) 1 Neut # (Auto) 5.2 Lymph # (Auto) 2.0 [place] # (Auto) 0.7 Eos # (Auto) 0.2 Baso # (Auto) 0.0 Immature Gran # (Auto) 0.03 H Absolute Nucleated RBC 0.00 Immature Gran % 0 Nucleated RBC % 0 Puncture Site Right Radial ABG pH 7.40 D ABG pCO2 47 D ABG pO2 155 H ABG HCO3 29 H ABG O2 Saturation 100 H ABG Base Excess 3 FiO2 21 Sodium 144 Potassium 3.6 Chloride 108 H Carbon Dioxide 28.9 Anion Gap 7 BUN 12 Creatinine 0.4 L Estim Creat Clear Calc 80.9 eGFR > 60 BUN/Creatinine Ratio 30 H Glucose 70 L Calculated Osmolality 284 Calcium 7.8 L Corrected Calcium 8.7 Phosphorus 1.9 L Magnesium 1.8 Total Bilirubin 0.2 L AST 21 ALT 16 Alkaline Phosphatase 76 Total Protein 4.9 L Albumin 2.9 L Globulin 2.0 L Albumin/Globulin Ratio 1.5 ABG Interpretation ABG results: 08/09/24 08/09/24 08/10/24 15:43 17:53 04:39 ABG pH 7.31 L 7.30 L ABG pCO2 50 H 57 H ABG pO2 149 H 156 H ABG HCO3 25 28 H ABG O2 Saturation 99 H 100 H ABG Base Excess -2 1 VBG pH 7.34 VBG pCO2 44 VBG pO2 35 VBG Base Excess -3 08/11/24 03:20 ABG pH 7.40 D ABG pCO2 47 D ABG pO2 155 H ABG HCO3 29 H ABG O2 Saturation 100 H ABG Base Excess 3 VBG pH VBG pCO2 VBG pO2 VBG Base Excess Quality Measures Quality Measures none Advance care planning discussed with:: patient Assessment & Plan Assessment Current Active Medications: Generic Name Dose Route Start Last Admin Trade Name Freq PRN Reason Stop Dose Admin Acetaminophen 650 mg 08/09/24 06:35 Acetaminophen 325 Mg Tablet PO 09/08/24 06:34 Q6HR PRN Fever >100.3F or pain Aspirin 81 mg 08/11/24 09:00 08/11/24 08:06 Aspirin 81 Mg Chew GT 09/10/24 08:59 81 mg QDAY JONATHAN Administration Enoxaparin Sodium 40 mg 08/09/24 09:00 08/11/24 08:06 Enoxaparin Sod Inj 40 Mg/0.4 Ml Syringe SC 08/23/24 08:59 40 mg DAILY JONATHAN Administration Piperacillin/Tazobactam/Dextrose 3.375 gm in 50 mls @ 12.5 mls/hr 08/09/24 07:15 08/11/24 13:28 Zosyn IV 08/16/24 07:14 12.5 mls/hr Q8HR JONATHAN Administration Protocol Mirtazapine 30 mg 08/11/24 21:00 Mirtazapine 15 Mg Tablet PO 09/10/24 20:59 HS JONATHAN Ondansetron HCl 4 mg 08/09/24 06:35 Ondansetron Inj 2 Mg/Ml Inj 2 Ml IV 09/08/24 06:34 Q8HR PRN NAUSEA OR VOMITING Protocol Valproic Acid 500 mg 08/09/24 21:00 08/11/24 08:06 Valproic Acid Syrup 250 Mg/5 Ml Udc PO 09/08/24 20:59 500 mg BID JONATHAN Administration Plan Assessment César Bush is 69yr F with PMH of intellectual disability, schizophrenia who presents to the ER from a alf for vomiting and aspiration admitted for sepsis due to aspiration pneumonia and transferred to the ICU for acute hyxpoxic respiratory failure. #Acute hypoxic respiratory failure due aspiration pneumonia - improving #Sepsis #Aspiration PNA #GPC urine CXR 08/09 shows mucus plugging and atelectasis of the right lung, improved after bronchoscope Pt is s/p extubation and bronchoscopy Pt had extensive mucus plugging on bronchoscopy that were cleared Urine shows GPC MSRA negative Blood cultures no growth after 2 days Pt will require further imaging to evaluate for aspiration Plan: - Continue antibiotics Zoysn and Azithro - Follow up BAL cultures and specimens - Oxygen as needed, wean down as tolerated - Video Fluoroscopy - NPO now #History of IBD Plan: - Hold home Linzess #Acute on chronic encephalopathy, resolved #Schizophrenia #Intellectual disability Plan: - Restart home valproic acid - Restart home antipsychotics slowly and avoid over sedation (mirtazipine, seroquel and pramipexole) - Aspiration precautions #Health Maintenance Disposition: MedSur DVT prophylaxis: Lovenox GI prophylaxis: Pepcid Diet: NPO, pending video fluoroscopy CODE STATUS: Full, pt is conserved Patient seen and care discussed with my senior resident, Dr. Lo, and my attending physician, Dr. Tahira Eden, PGY-1 Attending Provider Attestation/Addendum I attest that I was physically present for the evaluation, physical examination, lab and imaging review of the patient with the residents. I discussed the case with the residents and agree with the findings and plans of care as documented above. Patient is a 69 years old female with past medical history of intellectual delay, schizophrenia who was initially admitted to the medical floor for management of sepsis secondary to aspiration pneumonia. Patient was found to have opacity on the right lung, suggestive of atelectasis and mucous plugging, she was then transferred to ICU for intubation and bronchoscopy. Patient underwent bronchoscopy with removal of secretions. She improved, was extubated and placed on nasal cannula this morning. Has been saturating well on 3 L nasal cannula. Patient is transferred to medical floor today for further management. Continues to be on IV antibiotics for aspiration pneumonia. Patient has been evaluated by speech therapy, recommended videofluoroscopy before restarting diet. We will keep the patient n.p.o. until she gets her video fluoroscopy done. Patient is on multiple medication for schizophrenia, intellectual disability. We will continue with valproic acid and resume her rest of the medications slowly due to concern of drowsiness and aspiration. Jonathan Hoffmann MD
--- NOTE | 2024-08-11 16:36 | PC.SS ---
Update: Patient extubated today. Patient on 3L nasal cannula. Swallow evaluation conducted. P.O. feedings on hold. Patient to be downgraded from ICU today.
[2024-08-11] MEDS: SODIUM CHLORIDE 0.9% 1000 ML 1,000 ML 40 ML IV (16:54)
--- NOTE | 2024-08-11 18:00 | PC.NURSE ---
Patient arrived via gurney to room with no s/s of distress, alert to self. Customer Service Engineer at bedside.
[2024-08-11] MEDS: DEXTROSE 50%-WATER INJ 50 ML SYRINGE 25 ML IV ×2 (18:35→23:38)
[2024-08-12] VITALS (11 sets, daily range): BP systolic 123–150; BP diastolic 67–90; PULSE 77–107; RESP 16–18; TEMP 36.3–37.1; O2SAT 90–99
[2024-08-12] MEDS: DEXTROSE 5%-0.45% NS 1,000 ML 75 ML IV (00:37)
[2024-08-12] MEDS: PIPER/TAZO 3.375 GM PREMIX 3.375 GM/50 ML BAG IV ×3 (05:23→22:09)
[2024-08-12 06:15] LABS: Basophils % (Auto) 0 % (0-2.5); Eosinophils # (Auto) 0.2 Thou/mm3 (0.0-0.5); Eosinophils % (Auto) 2 % (0-10); Hematocrit 33.4 % (36.0-46.0); Hemoglobin 11.3 g/dL (12.0-16.0); Immature Granulocytes % (Auto) 0 % (0-0); Immature Granulocytes Auto 0.04 Thou/mm3 (0.00-0.00); Lymphocytes # (Auto) 1.1 Thou/mm3 (1.0-4.8); Lymphocytes % (Auto) 12 % (10-50); Mean Corpuscular HGB Conc 33.8 g/dl (31.0-37.0); Mean Corpuscular Hemoglobin 31.1 pg (25.0-35.0); Mean Corpuscular Volume 92 fL (80-100); Monocytes # (Auto) 0.9 Thou/mm3 (0.0-0.8); Monocytes % (Auto) 9 % (0-12); Neutrophils # (Auto) 7.7 Thou/mm3 (1.8-7.7); Neutrophils % (Auto) 78 % (37-80); Nucleated Red Blood Cell % 0 /100 WBC (0); Platelet Count 182 Thou/mm3 (140-440); RDW Standard Deviation 43.3 fL (36.4-46.3); Red Blood Count 3.63 Miln/mm3 (4.00-5.20); White Blood Count 9.9 Thou/mm3 (3.6-11.0)
[2024-08-12 06:55] LABS: Alanine Aminotransferase 13 U/L (10-49); Albumin/Globulin Ratio 1.4 (1.2-2.2); Alkaline Phosphatase 75 U/L (46-116); Anion Gap 8 (7-16); Aspartate Amino Transferase 20 U/L (0-34); BUN/Creatinine Ratio 17 Ratio (12-20); Bilirubin,Total 0.3 mg/dL (0.3-1.2); Blood Urea Nitrogen 5 mg/dL (9-23); Calcium 7.9 mg/dL (8.3-10.6); Calcium (Corrected) 8.7 mg/dL (8.5-10.1); Carbon Dioxide 29.2 mMol/L (20.0-31.0); Chloride 106 mMol/L (98-107); Creatinine (Component) 0.3 mg/dL (0.6-1.3); Estimated Creatinine Clearance 107.8 mL/min (>60); Globulin 2.2 gm/dL (2.3-3.5); Glucose 97 mg/dL (74-106); Magnesium 1.5 mg/dL (1.6-2.6); Osmolality,Calculated 282 (275-295); Phosphorous 1.4 mg/dL (2.4-5.1); Sodium 143 mMol/L (136-145); Total Protein 5.2 gm/dL (5.7-8.2); eGFR > 60 See Note
[2024-08-12] MEDS: ENOXAPARIN SOD INJ 40 MG/0.4 ML SYRINGE SC (09:47)
[2024-08-12] MEDS: Magnesium Sulfate 2 GM Ivpb 2 GM/50 ML BAG IV (09:47)
[2024-08-12] MEDS: POTASSIUM CHL 10 mEq IVPB 10 MEQ/100 ML BAG 100 MEQ IV ×4 (11:32→19:24)
--- NOTE | 2024-08-12 11:45 | PC.NURSE ---
pt trasfer to xray department, she is alert and follows commands, via gurney and accompanied by Radha. Pt has shelter monitor and oxygen.
[2024-08-12] MEDS: POTASSIUM PHOS 22.5 MMOL in SODIUM CHLORIDE 0.9% 500 ML 500 ML 82.778 MMOL IV (12:30)
[2024-08-12] MEDS: ASPIRIN 81 MG CHEW GT (13:16)
[2024-08-12] MEDS: VALPROIC ACID SYRUP 250 MG/5 ML UDC 500 MG PO (13:32)
--- NOTE | 2024-08-12 14:44 | XR_ITS ---
Examination: Modified barium swallow Video esophagram Exam date and time: August 2024 1145 hours INDICATIONS: Clinical diagnosis aspiration pneumonia TECHNIQUE AND FINDINGS: Patient swallowed barium Uterus Thin barium administration demonstrated or oral control and premature transfer with lack of clearing of contrast from the piriform sinuses and vallecula Rembrandt barium provided to best swallowing results No aspiration 122 spot fluoroscopic images soft tissue lateral neck were obtained with the patient swallowing fluoroscopy 0.3 minute radiation dose 46.95 milligray IMPRESSION: Pharyngeal dysmotility as above
--- NOTE | 2024-08-12 15:11 | ESPR_ITS ---
<Statement entered by Bebe Lo MD - 08/12/24 15:29> Patient was seen and examined at the bedside, patient has undergone video fluoroscopy, speech therapist noticed that there was no aspiration during the procedure, however she noticed that patient has significant gastric reflux. Recommended pur?ed diet at this time, also recommended that patient can have oral medications. Will start the patient on pur?ed diet at this time, and monitor for any signs of choking. We might discharge the patient on follow-up outpatient for the gastric reflux that was found on videofluoroscopy. - Patient's plan and care discussed with my attending, Dr. Lacy Lo MD Internal Medicine PGY-2 Documentation for date of: 08/12/24 Subjective Subjective Interval history: Patient examined at bedside today. No acute overnight events. Patient will go for fluoroscopy today to see if there is any pathology related to patient aspirating. No complaints at this time. Exam Vital Signs Temp Pulse Resp BP Pulse Ox O2 Del Method O2 Flow Rate 97.4 F 90 17 126/74 95 Nasal Cannula 2 08/12/24 11:53 08/12/24 12:00 08/12/24 11:53 08/12/24 11:53 08/12/24 11:53 08/12/24 11:53 08/12/24 11:53 FiO2 40 08/11/24 08:00 Narrative Exam General: AAOx2, NAD, intellectual disability HEENT: Moist mucous membranes, conjunctiva clear, EOMI, PERRLA, Cardiovascular: S1, S2, radial pulses +2 bilat, RRR Pulmonary: Appears to have some secretions at his time GI: No tenderness to light or deep palpitation, no guarding, rigidity, rebound tenderness or distension Extremities: No presence of trace or pitting edema in lower extremities bilaterally, dorsalis pedis pulses +2 bilaterally Neuro: AAOx2, no focal motor or sensory deficits in the UE or LE bilat Psych: Able to cooperate Objective Labs 08/12/24 05:33 08/12/24 05:33 Labs: Laboratory Results - last 24 hr 08/12/24 05:33 WBC 9.9 RBC 3.63 L Hgb 11.3 L Hct 33.4 L MCV 92 MCH 31.1 MCHC 33.8 RDW Std Deviation 43.3 Plt Count 182 Neut % (Auto) 78 Lymph % (Auto) 12 [place] % (Auto) 9 Eos % (Auto) 2 Baso % (Auto) 0 Neut # (Auto) 7.7 Lymph # (Auto) 1.1 [place] # (Auto) 0.9 H Eos # (Auto) 0.2 Baso # (Auto) 0.0 Immature Gran # (Auto) 0.04 H Absolute Nucleated RBC 0.00 Immature Gran % 0 Nucleated RBC % 0 Sodium 143 Potassium 3.0 L D Chloride 106 Carbon Dioxide 29.2 Anion Gap 8 BUN 5 L Creatinine 0.3 L Estim Creat Clear Calc 107.8 eGFR > 60 BUN/Creatinine Ratio 17 Glucose 97 Calculated Osmolality 282 Calcium 7.9 L Corrected Calcium 8.7 Phosphorus 1.4 L Magnesium 1.5 L Total Bilirubin 0.3 AST 20 ALT 13 Alkaline Phosphatase 75 Total Protein 5.2 L Albumin 3.0 L Globulin 2.2 L Albumin/Globulin Ratio 1.4 ABG Interpretation ABG results: 08/09/24 08/09/24 08/10/24 15:43 17:53 04:39 ABG pH 7.31 L 7.30 L ABG pCO2 50 H 57 H ABG pO2 149 H 156 H ABG HCO3 25 28 H ABG O2 Saturation 99 H 100 H ABG Base Excess -2 1 VBG pH 7.34 VBG pCO2 44 VBG pO2 35 VBG Base Excess -3 08/11/24 03:20 ABG pH 7.40 D ABG pCO2 47 D ABG pO2 155 H ABG HCO3 29 H ABG O2 Saturation 100 H ABG Base Excess 3 VBG pH VBG pCO2 VBG pO2 VBG Base Excess Quality Measures Quality Measures none Advance care planning discussed with:: patient Assessment & Plan Assessment Current Active Medications: Generic Name Dose Route Start Last Admin Trade Name Freq PRN Reason Stop Dose Admin Acetaminophen 650 mg 08/09/24 06:35 Acetaminophen 325 Mg Tablet PO 09/08/24 06:34 Q6HR PRN Fever >100.3F or pain Aspirin 81 mg 08/11/24 09:00 08/12/24 13:16 Aspirin 81 Mg Chew GT 09/10/24 08:59 81 mg QDAY JONATHAN Administration Dextrose 25 ml 08/11/24 16:46 08/11/24 23:38 Dextrose 50%-Water Inj 50 Ml Syringe IV 09/10/24 16:45 25 ml Q15MIN PRN Administration BG 50-70 responsive npo pt Dextrose 50 ml 08/11/24 16:46 Dextrose 50%-Water Inj 50 Ml Syringe IV 09/10/24 16:45 Q15MIN PRN BG <50 OR BG <70 & pt unresponsive Enoxaparin Sodium 40 mg 08/09/24 09:00 08/12/24 09:47 Enoxaparin Sod Inj 40 Mg/0.4 Ml Syringe SC 08/23/24 08:59 40 mg DAILY JONATHAN Administration Glucagon 1 mg 08/11/24 16:46 Glucagon Inj 1 Mg Vial IM Q15MIN PRN BG <70, and no IV access Piperacillin/Tazobactam/Dextrose 3.375 gm in 50 mls @ 12.5 mls/hr 08/09/24 07:15 08/12/24 14:03 Zosyn IV 08/16/24 07:14 12.5 mls/hr Q8HR JONATHAN Administration Protocol Potassium Chloride 10 meq in 100 mls @ 100 mls/hr 08/12/24 17:00 Kcl Ivpb IV 08/12/24 19:59 Q1H JONATHAN Mirtazapine 30 mg 08/11/24 21:00 08/11/24 20:17 Mirtazapine 15 Mg Tablet PO 09/10/24 20:59 Not Given HS JONATHAN Ondansetron HCl 4 mg 08/09/24 06:35 Ondansetron Inj 2 Mg/Ml Inj 2 Ml IV 09/08/24 06:34 Q8HR PRN NAUSEA OR VOMITING Protocol Valproic Acid 500 mg 08/09/24 21:00 08/12/24 13:32 Valproic Acid Syrup 250 Mg/5 Ml Udc PO 09/08/24 20:59 500 mg BID JONATHAN Administration Plan Assessment César Bush is 69yr F with PMH of intellectual disability, schizophrenia who presents to the ER from a nursing home for vomiting and aspiration admitted for sepsis due to aspiration pneumonia and transferred to the ICU for acute hyxpoxic respiratory failure. #Acute hypoxic respiratory failure due aspiration pneumonia - improving #Sepsis #Aspiration PNA CXR 08/09 shows mucus plugging and atelectasis of the right lung, improved after bronchoscope Pt is s/p extubation and bronchoscopy Pt had extensive mucus plugging on bronchoscopy that were cleared Urine shows GPC MSRA negative Blood cultures no growth after 2 days Pt will require further imaging to evaluate for aspiration Video Fluoroscopy showed pharyngeal dysmotility Will advance tolerate to see how pt tolerates Bronchial washing unremarkable Plan: - Continue antibiotics Zoysn and Azithro (08/08- - Oxygen as needed, wean down as tolerated - Dysphagia 1 diet, advance as tolerated #History of IBD Plan: - Hold home Linzess #Acute on chronic encephalopathy, resolved #Schizophrenia #Intellectual disability Plan: - Continue home valproic acid - Continue Remeron - Pramipexole 0.25 hs - Aspiration precautions #Health Maintenance Disposition: MedSurg DVT prophylaxis: Lovenox GI prophylaxis: Pepcid Diet: Dysphagia 1 CODE STATUS: Full, pt is conserved Patient seen and care discussed with my senior resident, Dr. Lo, and my attending physician, Dr. Tahira Eden, PGY-1 Attending Provider Attestation/Addendum I attest that I was physically present for the evaluation, physical examination, lab and imaging review of the patient with the residents. I discussed the case with the residents and agree with the findings and plans of care as documented above. Jonathan Hoffmann MD
[2024-08-12] MEDS: MIRTAZAPINE 15 MG TABLET 30 MG PO (20:34)
[2024-08-12] MEDS: PRAMIPEXOLE 0.25 MG TABLET PO (20:34)
[2024-08-13] VITALS (12 sets, daily range): BP systolic 122–154; BP diastolic 69–90; PULSE 51–92; RESP 17–94; TEMP 36–36.5; O2SAT 90–100; BMI 21.2
[2024-08-13] MEDS: PIPER/TAZO 3.375 GM PREMIX 3.375 GM/50 ML BAG IV ×3 (05:40→21:29)
[2024-08-13 06:19] LABS: Basophils % (Auto) 0 % (0-2.5); Eosinophils # (Auto) 0.2 Thou/mm3 (0.0-0.5); Eosinophils % (Auto) 2 % (0-10); Hematocrit 37.2 % (36.0-46.0); Hemoglobin 12.3 g/dL (12.0-16.0); Immature Granulocytes % (Auto) 1 % (0-0); Immature Granulocytes Auto 0.06 Thou/mm3 (0.00-0.00); Lymphocytes # (Auto) 1.4 Thou/mm3 (1.0-4.8); Lymphocytes % (Auto) 18 % (10-50); Mean Corpuscular HGB Conc 33.1 g/dl (31.0-37.0); Mean Corpuscular Hemoglobin 30.9 pg (25.0-35.0); Mean Corpuscular Volume 94 fL (80-100); Monocytes % (Auto) 13 % (0-12); Neutrophils % (Auto) 66 % (37-80); Nucleated Red Blood Cell % 0 /100 WBC (0); Platelet Count 203 Thou/mm3 (140-440); RDW Standard Deviation 44.1 fL (36.4-46.3); Red Blood Count 3.98 Miln/mm3 (4.00-5.20); White Blood Count 7.7 Thou/mm3 (3.6-11.0)
[2024-08-13 06:28] LABS: Alanine Aminotransferase 21 U/L (10-49); Albumin, Serum 3.3 gm/dL (3.4-4.8); Albumin/Globulin Ratio 1.4 (1.2-2.2); Alkaline Phosphatase 146 U/L (46-116); Anion Gap 5 (7-16); Aspartate Amino Transferase 33 U/L (0-34); BUN/Creatinine Ratio 15 Ratio (12-20); Bilirubin,Total 0.4 mg/dL (0.3-1.2); Blood Urea Nitrogen 6 mg/dL (9-23); Calcium 8.4 mg/dL (8.3-10.6); Carbon Dioxide 33.1 mMol/L (20.0-31.0); Chloride 104 mMol/L (98-107); Creatinine (Component) 0.4 mg/dL (0.6-1.3); Estimated Creatinine Clearance 80.9 mL/min (>60); Globulin 2.3 gm/dL (2.3-3.5); Glucose 112 mg/dL (74-106); Magnesium 1.8 mg/dL (1.6-2.6); Osmolality,Calculated 281 (275-295); Phosphorous 2.3 mg/dL (2.4-5.1); Potassium 3.9 mMol/L (3.4-5.1); Sodium 142 mMol/L (136-145); Total Protein 5.6 gm/dL (5.7-8.2); eGFR > 60 See Note
[2024-08-13] MEDS: VALPROIC ACID SYRUP 250 MG/5 ML UDC 500 MG PO ×2 (09:12→21:29)
[2024-08-13] MEDS: ENOXAPARIN SOD INJ 40 MG/0.4 ML SYRINGE SC (09:13)
[2024-08-13] MEDS: ASPIRIN 81 MG CHEW GT (09:13)
--- NOTE | 2024-08-13 09:26 | PC.SS ---
Follow up note: Pt is on IV antibiotic. Pt is currently on 3 liters of O2. Pt does not utilizes O2 at home. SS spoke to Heather, caregiver from nursing home who states they are unable to have O2 at home. Heather is open for pt to go to SNF if pt is able to be weaned off of O2.
[2024-08-13] MEDS: BENZTROPINE 0.5 MG TABLET 2 MG PO (21:29)
[2024-08-13] MEDS: MIRTAZAPINE 15 MG TABLET 30 MG PO (21:30)
[2024-08-13] MEDS: PRAMIPEXOLE 0.25 MG TABLET PO (21:31)
--- NOTE | 2024-08-13 23:13 | PD.HHPROG ---
Documentation for date of: 08/13/24 Subjective - Hospitalist Subjective Interval history: At bedside today, patient appears comfortable. Attempt was made to discontinue her supplemental oxygen, patient initially did well and was plan for discharge but later on had desaturation up to 87, discharge plan was canceled. We will continue to monitor her closely, try to wean her oxygen down and reevaluate tomorrow. Review of Systems Review of Systems Systems Reviewed: All systems reviewed, normal except as documented Exam Vital Signs Temp Pulse Resp BP Pulse Ox O2 Del Method O2 Flow Rate 97.1 F 91 22 H 142/81 H 95 Nasal Cannula 3 08/13/24 20:00 08/13/24 20:00 08/13/24 20:00 08/13/24 20:00 08/13/24 20:00 08/13/24 20:00 08/13/24 20:00 FiO2 40 08/13/24 04:00 Narrative General: AAOx2, NAD, intellectual disability HEENT: Moist mucous membranes, conjunctiva clear, EOMI, PERRLA, Cardiovascular: S1, S2, radial pulses +2 bilat, RRR Pulmonary: Conducted sound heard bilaterally GI: No tenderness to light or deep palpitation, no guarding, rigidity, rebound tenderness or distension Extremities: No presence of trace or pitting edema in lower extremities bilaterally, dorsalis pedis pulses +2 bilaterally Neuro: AAOx2, no focal motor or sensory deficits in the UE or LE bilat Psych: Able to cooperate Objective - Hospitalist Labs Diagram: 08/13/24 05:15 08/13/24 05:15 Labs: Laboratory Results - last 24 hr 08/13/24 05:15 WBC 7.7 RBC 3.98 L Hgb 12.3 Hct 37.2 MCV 94 MCH 30.9 MCHC 33.1 RDW Std Deviation 44.1 Plt Count 203 Neut % (Auto) 66 Lymph % (Auto) 18 [place] % (Auto) 13 H Eos % (Auto) 2 Baso % (Auto) 0 Neut # (Auto) 5.0 Lymph # (Auto) 1.4 [place] # (Auto) 1.0 H Eos # (Auto) 0.2 Baso # (Auto) 0.0 Immature Gran # (Auto) 0.06 H Absolute Nucleated RBC 0.00 Immature Gran % 1 H Nucleated RBC % 0 Sodium 142 Potassium 3.9 D Chloride 104 Carbon Dioxide 33.1 H Anion Gap 5 L BUN 6 L Creatinine 0.4 L Estim Creat Clear Calc 80.9 eGFR > 60 BUN/Creatinine Ratio 15 Glucose 112 H Calculated Osmolality 281 Calcium 8.4 Corrected Calcium 9.0 Phosphorus 2.3 L Magnesium 1.8 Total Bilirubin 0.4 AST 33 ALT 21 Alkaline Phosphatase 146 H D Total Protein 5.6 L Albumin 3.3 L Globulin 2.3 Albumin/Globulin Ratio 1.4 ABG Interpretation ABG results: 08/09/24 08/09/24 08/10/24 15:43 17:53 04:39 ABG pH 7.31 L 7.30 L ABG pCO2 50 H 57 H ABG pO2 149 H 156 H ABG HCO3 25 28 H ABG O2 Saturation 99 H 100 H ABG Base Excess -2 1 VBG pH 7.34 VBG pCO2 44 VBG pO2 35 VBG Base Excess -3 08/11/24 03:20 ABG pH 7.40 D ABG pCO2 47 D ABG pO2 155 H ABG HCO3 29 H ABG O2 Saturation 100 H ABG Base Excess 3 VBG pH VBG pCO2 VBG pO2 VBG Base Excess Assessment & Plan Assessment: César Bush is 69yr F with PMH of intellectual disability, schizophrenia who presents [facility] the ER from a [facility] for vomiting and aspiration admitted for sepsis due to aspiration pneumonia and transferred to the ICU for acute hyxpoxic respiratory failure. #Acute hypoxic respiratory failure due aspiration pneumonia - improving #Sepsis #Aspiration PNA CXR 08/09 shows mucus plugging and atelectasis of the right lung, improved after bronchoscope Pt is s/p extubation and bronchoscopy Pt had extensive mucus plugging on bronchoscopy that were cleared Urine shows GPC MSRA negative Blood cultures no growth Pt will require further imaging to evaluate for aspiration Video Fluoroscopy showed pharyngeal dysmotility Will advance tolerate to see how pt tolerates Bronchial washing unremarkable Plan: - Continue antibiotics Zoysn - Oxygen as needed, wean down as tolerated - Dysphagia 1 diet, advance as tolerated #History of IBD Plan: - Hold home Linzess #Acute on chronic encephalopathy, resolved #Schizophrenia #Intellectual disability Plan: - Continue home valproic acid - Continue Remeron - Pramipexole 0.25 hs - Resumed benztropine - Aspiration precautions Disposition: [facility], patient was on room air at baseline, continues to need supplemental oxygen, we will attempt to wean her oxygen down, plan to reevaluate tomorrow, if continues to need supplemental oxygen, we will consider discharge on supplemental oxygen likely to SNF. DVT prophylaxis: Lovenox GI prophylaxis: Pepcid Diet: Dysphagia 1 CODE STATUS: Full code Jonathan Hoffmann MD Time Spent with Patient Time: Total time spent is greater than 50% in coordination of care (as documented) at patient's floor/unit and/or counseling patient: Time with patient: Greater than 35 minutes Reason for Continued Stay Reason for continued stay: high O2 requirements Quality Measures Quality Measures none Advance care planning discussed with:: other
[2024-08-14] VITALS (12 sets, daily range): BP systolic 123–155; BP diastolic 65–78; PULSE 75–99; RESP 17–92; TEMP 36.2–37.1; O2SAT 90–97
[2024-08-14] MEDS: PIPER/TAZO 3.375 GM PREMIX 3.375 GM/50 ML BAG IV ×3 (05:06→21:30)
--- NOTE | 2024-08-14 06:58 | PC.NURSE ---
Pt taken off oxygen at 0500 r/t sats at 99% on 3L via NC, RA sats 92%
--- NOTE | 2024-08-14 08:40 | XR_ITS ---
Examination: AP chest single view TECHNIQUE: AP portable semiupright chest single view Examination type: August 14, 2024 0858 hours Comparison August 11, 2024 INDICATIONS: Patient with shortness of breath today. FINDINGS: Significant bibasilar and right middle lobe pneumonia Normal heart size No pulmonary edema Old fractures right humerus and left clavicle IMPRESSION: Significant bibasilar and right middle lobe pneumonia, consider aspiration pneumonia
[2024-08-14] MEDS: ASPIRIN 81 MG CHEW GT (09:48)
[2024-08-14] MEDS: BENZTROPINE 0.5 MG TABLET 2 MG PO ×2 (09:48→21:30)
[2024-08-14] MEDS: ENOXAPARIN SOD INJ 40 MG/0.4 ML SYRINGE SC (09:48)
[2024-08-14 12:33] LABS: Basophils # (Auto) 0.1 Thou/mm3 (0.0-0.2); Basophils % (Auto) 1 % (0-2.5); Eosinophils # (Auto) 0.2 Thou/mm3 (0.0-0.5); Eosinophils % (Auto) 3 % (0-10); Hematocrit 37.3 % (36.0-46.0); Hemoglobin 12.7 g/dL (12.0-16.0); Immature Granulocytes % (Auto) 1 % (0-0); Lymphocytes # (Auto) 1.8 Thou/mm3 (1.0-4.8); Lymphocytes % (Auto) 23 % (10-50); Mean Corpuscular Volume 91 fL (80-100); Monocytes # (Auto) 0.8 Thou/mm3 (0.0-0.8); Monocytes % (Auto) 9 % (0-12); Neutrophils % (Auto) 63 % (37-80); Nucleated Red Blood Cell % 0 /100 WBC (0); Platelet Count 267 Thou/mm3 (140-440); RDW Standard Deviation 43.8 fL (36.4-46.3)
[2024-08-14] MEDS: VALPROIC ACID SYRUP 250 MG/5 ML UDC 500 MG PO ×2 (12:44→21:30)
[2024-08-14 12:52] LABS: Alanine Aminotransferase 22 U/L (10-49); Albumin, Serum 3.5 gm/dL (3.4-4.8); Albumin/Globulin Ratio 1.5 (1.2-2.2); Alkaline Phosphatase 130 U/L (46-116); Anion Gap 5 (7-16); Aspartate Amino Transferase 22 U/L (0-34); BUN/Creatinine Ratio 30 Ratio (12-20); Bilirubin,Total 0.3 mg/dL (0.3-1.2); Blood Urea Nitrogen 12 mg/dL (9-23); Calcium 8.8 mg/dL (8.3-10.6); Calcium (Corrected) 9.2 mg/dL (8.5-10.1); Chloride 105 mMol/L (98-107); Creatinine (Component) 0.4 mg/dL (0.6-1.3); Estimated Creatinine Clearance 80.9 mL/min (>60); Globulin 2.3 gm/dL (2.3-3.5); Glucose 111 mg/dL (74-106); Osmolality,Calculated 285 (275-295); Potassium 3.8 mMol/L (3.4-5.1); Sodium 143 mMol/L (136-145); Total Protein 5.8 gm/dL (5.7-8.2); eGFR > 60 See Note
--- NOTE | 2024-08-14 17:27 | PD.RESPRO ---
Documentation for date of: 08/14/24 Subjective Subjective Interval history: Patient was seen and examined at bedside. Patient seem to be significantly improving however she is still on 1 L of oxygen. We did a trial to stop her oxygen and she was saturating well at 93%. A walking test trial without oxygen dropped her oxygen to 87. Her Caregiver reported that the [facility] unable to accept the patient if she is on oxygen for that reason the patient will need placement [facility] for oxygen. We ordered for the patient PT evaluation and possible discharge tomorrow to a penitentiary facility. Spoke with the speech therapist recommended to continue the patient on pur?e. Will discharge the patient to follow-up in outpatient settings regarding her findings of gastric reflux on the videofluoroscopy. Exam Vital Signs Temp Pulse Resp BP Pulse Ox O2 Del Method O2 Flow Rate 97.5 F 90 18 124/74 93 L Room Air 1 08/14/24 16:00 08/14/24 16:00 08/14/24 16:00 08/14/24 16:00 08/14/24 16:00 08/14/24 16:08/14/24 12:00 FiO2 40 08/13/24 04:00 Narrative Exam GEN: AOx1, cooperative, able to follow up commands. HEENT: NC/AC, oral mucosa moist, neck supple CVS: RRR, S1-S2 present, no murmurs appreciated RESP: Still diffuse rhonchi bilaterally. GI: soft,non distended, non tender, NBS MSK: able to move all 4 limbs, no lower extremity edema SKIN: warm and dry ADMINISTRATIVE ASSISTANT DATA ENTRY: CN II-XII and Sensation grossly intact. Objective Labs 08/14/24 11:50 08/14/24 11:50 Labs: Laboratory Results - last 24 hr 08/14/24 11:50 WBC 8.0 RBC 4.10 Hgb 12.7 Hct 37.3 MCV 91 MCH 31.0 MCHC 34.0 RDW Std Deviation 43.8 Plt Count 267 D Neut % (Auto) 63 Lymph % (Auto) 23 Clinch % (Auto) 9 Eos % (Auto) 3 Baso % (Auto) 1 Neut # (Auto) 5.0 Lymph # (Auto) 1.8 Clinch # (Auto) 0.8 Eos # (Auto) 0.2 Baso # (Auto) 0.1 Immature Gran # (Auto) 0.10 H Absolute Nucleated RBC 0.00 Immature Gran % 1 H Nucleated RBC % 0 Sodium 143 Potassium 3.8 Chloride 105 Carbon Dioxide 33.0 H Anion Gap 5 L BUN 12 Creatinine 0.4 L Estim Creat Clear Calc 80.9 eGFR > 60 BUN/Creatinine Ratio 30 H Glucose 111 H Calculated Osmolality 285 Calcium 8.8 Corrected Calcium 9.2 Total Bilirubin 0.3 AST 22 ALT 22 Alkaline Phosphatase 130 H Total Protein 5.8 Albumin 3.5 Globulin 2.3 Albumin/Globulin Ratio 1.5 ABG Interpretation ABG results: 08/09/24 08/09/24 08/10/24 15:43 17:53 04:39 ABG pH 7.31 L 7.30 L ABG pCO2 50 H 57 H ABG pO2 149 H 156 H ABG HCO3 25 28 H ABG O2 Saturation 99 H 100 H ABG Base Excess -2 1 VBG pH 7.34 VBG pCO2 44 VBG pO2 35 VBG Base Excess -3 08/11/24 03:20 ABG pH 7.40 D ABG pCO2 47 D ABG pO2 155 H ABG HCO3 29 H ABG O2 Saturation 100 H ABG Base Excess 3 VBG pH VBG pCO2 VBG pO2 VBG Base Excess Quality Measures Quality Measures none Advance care planning discussed with:: patient and legal surragate Assessment & Plan Assessment Current Active Medications: Generic Name Dose Route Start Last Admin Trade Name Freq PRN Reason Stop Dose Admin Acetaminophen 650 mg 08/09/24 06:35 Acetaminophen 325 Mg Tablet PO 09/08/24 06:34 Q6HR PRN Fever >100.3F or pain Aspirin 81 mg 08/11/24 09:00 08/14/24 09:48 Aspirin 81 Mg Chew GT 09/10/24 08:59 81 mg QDAY JONATHAN Administration Benztropine Mesylate 2 mg 08/13/24 21:00 08/14/24 09:48 Benztropine 0.5 Mg Tablet PO 09/12/24 20:59 2 mg BID JONATHAN Administration Dextrose 25 ml 08/11/24 16:46 08/11/24 23:38 Dextrose 50%-Water Inj 50 Ml Syringe IV 09/10/24 16:45 25 ml Q15MIN PRN Administration BG 50-70 responsive npo pt Dextrose 50 ml 08/11/24 16:46 Dextrose 50%-Water Inj 50 Ml Syringe IV 09/10/24 16:45 Q15MIN PRN BG <50 OR BG <70 & pt unresponsive Enoxaparin Sodium 40 mg 08/09/24 09:00 08/14/24 09:48 Enoxaparin Sod Inj 40 Mg/0.4 Ml Syringe SC 08/23/24 08:59 40 mg DAILY JONATHAN Administration Glucagon 1 mg 08/11/24 16:46 Glucagon Inj 1 Mg Vial IM Q15MIN PRN BG <70, and no IV access Piperacillin/Tazobactam/Dextrose 3.375 gm in 50 mls @ 12.5 mls/hr 08/09/24 07:15 08/14/24 14:55 Zosyn IV 08/16/24 07:14 12.5 mls/hr Q8HR JONATHAN Administration Protocol Mirtazapine 30 mg 08/11/24 21:00 08/13/24 21:30 Mirtazapine 15 Mg Tablet PO 09/10/24 20:59 30 mg HS JONATHAN Administration Ondansetron HCl 4 mg 08/09/24 06:35 Ondansetron Inj 2 Mg/Ml Inj 2 Ml IV 09/08/24 06:34 Q8HR PRN NAUSEA OR VOMITING Protocol Pramipexole Dihydrochloride 0.25 mg 08/12/24 21:00 08/13/24 21:31 Pramipexole 0.25 Mg Tablet PO 09/11/24 20:59 0.25 mg HS JONATHAN Administration Valproic Acid 500 mg 08/09/24 21:00 08/14/24 12:44 Valproic Acid Syrup 250 Mg/5 Ml Udc PO 09/08/24 20:59 500 mg BID JONATHAN Administration Plan Summary: 69yr F with PMH of intellectual disability, schizophrenia who [facility] from a [facility] for vomiting and aspiration admitted for sepsis due to aspiration pneumonia and transferred to the ICU for acute hyxpoxic respiratory failure. #Acute hypoxic respiratory failure due aspiration pneumonia - improving #Sepsis improving #Aspiration PNA CXR 08/09 shows mucus plugging and atelectasis of the right lung, improved after bronchoscope Pt is s/p extubation and bronchoscopy Pt had extensive mucus plugging on bronchoscopy that were cleared Urine shows GPC MSRA negative Blood cultures no growth Pt will require further imaging to evaluate for aspiration Video Fluoroscopy showed pharyngeal dysmotility Will advance tolerate to see how pt tolerates Bronchial washing unremarkable Plan: - Continue antibiotics Zoysn - Oxygen as needed, wean down as tolerated - Dysphagia 1 diet, advance as tolerated #History of IBS Plan: - Hold home Linzess #Acute on chronic encephalopathy, resolved #Schizophrenia #Intellectual disability Plan: - Continue home valproic acid - Continue Remeron - Pramipexole 0.25 hs - Resumed benztropine - Aspiration precautions [facility] as the patient required oxygen at home. DVT prophylaxis: Lovenox GI prophylaxis: Pepcid Diet: Dysphagia 1 CODE STATUS: Full code - Patient's plan and care discussed with my attending, Dr. Lacy Lo MD Internal Medicine PGY-2 Attending Provider Attestation/Addendum I attest that I was physically present for the evaluation, physical examination, lab and imaging review of the patient with the residents. I discussed the case with the residents and agree with the findings and plans of care as documented above. Jonathan Hoffmann MD
[2024-08-14] MEDS: PRAMIPEXOLE 0.25 MG TABLET PO (21:30)
[2024-08-14] MEDS: MIRTAZAPINE 15 MG TABLET 30 MG PO (21:30)
[2024-08-15] VITALS (10 sets, daily range): BP systolic 102–174; BP diastolic 62–86; PULSE 75–99; RESP 16–88; TEMP 36.1–36.6; O2SAT 93–97
[2024-08-15] MEDS: PIPER/TAZO 3.375 GM PREMIX 3.375 GM/50 ML BAG IV ×2 (05:18→13:38)
[2024-08-15 06:14] LABS: Basophils # (Auto) 0.1 Thou/mm3 (0.0-0.2); Basophils % (Auto) 1 % (0-2.5); Eosinophils # (Auto) 0.3 Thou/mm3 (0.0-0.5); Eosinophils % (Auto) 4 % (0-10); Hematocrit 40.2 % (36.0-46.0); Hemoglobin 13.5 g/dL (12.0-16.0); Immature Granulocytes % (Auto) 2 % (0-0); Immature Granulocytes Auto 0.11 Thou/mm3 (0.00-0.00); Lymphocytes # (Auto) 2.7 Thou/mm3 (1.0-4.8); Lymphocytes % (Auto) 39 % (10-50); Mean Corpuscular HGB Conc 33.6 g/dl (31.0-37.0); Mean Corpuscular Hemoglobin 30.8 pg (25.0-35.0); Mean Corpuscular Volume 92 fL (80-100); Monocytes # (Auto) 0.7 Thou/mm3 (0.0-0.8); Monocytes % (Auto) 11 % (0-12); Neutrophils % (Auto) 44 % (37-80); Nucleated Red Blood Cell % 0 /100 WBC (0); Platelet Count 276 Thou/mm3 (140-440); RDW Standard Deviation 45.1 fL (36.4-46.3); Red Blood Count 4.39 Miln/mm3 (4.00-5.20); White Blood Count 6.8 Thou/mm3 (3.6-11.0)
[2024-08-15 06:28] LABS: Alanine Aminotransferase 20 U/L (10-49); Albumin, Serum 3.7 gm/dL (3.4-4.8); Albumin/Globulin Ratio 1.4 (1.2-2.2); Alkaline Phosphatase 126 U/L (46-116); Anion Gap 5 (7-16); Aspartate Amino Transferase 22 U/L (0-34); BUN/Creatinine Ratio 35 Ratio (12-20); Bilirubin,Total 0.3 mg/dL (0.3-1.2); Blood Urea Nitrogen 14 mg/dL (9-23); Calcium 9.1 mg/dL (8.3-10.6); Calcium (Corrected) 9.3 mg/dL (8.5-10.1); Carbon Dioxide 33.6 mMol/L (20.0-31.0); Chloride 105 mMol/L (98-107); Creatinine (Component) 0.4 mg/dL (0.6-1.3); Estimated Creatinine Clearance 80.9 mL/min (>60); Globulin 2.6 gm/dL (2.3-3.5); Glucose 89 mg/dL (74-106); Osmolality,Calculated 286 (275-295); Potassium 3.9 mMol/L (3.4-5.1); Sodium 144 mMol/L (136-145); Total Protein 6.3 gm/dL (5.7-8.2); eGFR > 60 See Note
[2024-08-15] MEDS: BENZTROPINE 0.5 MG TABLET 2 MG PO ×2 (08:30→21:28)
[2024-08-15] MEDS: ENOXAPARIN SOD INJ 40 MG/0.4 ML SYRINGE SC (08:30)
[2024-08-15] MEDS: VALPROIC ACID SYRUP 250 MG/5 ML UDC 500 MG PO ×2 (08:30→21:28)
[2024-08-15] MEDS: ASPIRIN 81 MG CHEW GT (08:30)
--- NOTE | 2024-08-15 14:21 | ESPR_ITS ---
Documentation for date of: 08/15/24 Subjective Subjective Interval history: Patient examined at bedside today. No acute overnight events. Patient desaturated to 88% while laying down. Patient has dentures, is able to tolerate dysphagia diet now. Patient is not complaining of any pain. Is not on oxygen at this time. No other complaints at this time. Exam Vital Signs Temp Pulse Resp BP Pulse Ox O2 Del Method O2 Flow Rate 97.7 F 83 16 102/78 95 Room Air 1 08/15/24 12:00 08/15/24 12:00 08/15/24 12:00 08/15/24 12:00 08/15/24 12:00 08/15/24 12:00 08/14/24 12:00 FiO2 40 08/13/24 04:00 Narrative Exam General: AAOx2, NAD, intellectual disability HEENT: Moist mucous membranes, conjunctiva clear, EOMI, PERRLA, has dentures Cardiovascular: S1, S2, radial pulses +2 bilat, RRR Pulmonary: Appears to have some secretions at his time GI: No tenderness to light or deep palpitation, no guarding, rigidity, rebound tenderness or distension Extremities: No presence of trace or pitting edema in lower extremities bilaterally, dorsalis pedis pulses +2 bilaterally Neuro: AAOx2, no focal motor or sensory deficits in the UE or LE bilat Psych: Able to cooperate Objective Labs 08/15/24 05:20 08/15/24 05:20 Labs: Laboratory Results - last 24 hr 08/15/24 05:20 WBC 6.8 RBC 4.39 Hgb 13.5 Hct 40.2 MCV 92 MCH 30.8 MCHC 33.6 RDW Std Deviation 45.1 Plt Count 276 Neut % (Auto) 44 Lymph % (Auto) 39 [place] % (Auto) 11 Eos % (Auto) 4 Baso % (Auto) 1 Neut # (Auto) 3.0 Lymph # (Auto) 2.7 [place] # (Auto) 0.7 Eos # (Auto) 0.3 Baso # (Auto) 0.1 Immature Gran # (Auto) 0.11 H Absolute Nucleated RBC 0.00 Immature Gran % 2 H Nucleated RBC % 0 Sodium 144 Potassium 3.9 Chloride 105 Carbon Dioxide 33.6 H Anion Gap 5 L BUN 14 Creatinine 0.4 L Estim Creat Clear Calc 80.9 eGFR > 60 BUN/Creatinine Ratio 35 H Glucose 89 Calculated Osmolality 286 Calcium 9.1 Corrected Calcium 9.3 Total Bilirubin 0.3 AST 22 ALT 20 Alkaline Phosphatase 126 H Total Protein 6.3 Albumin 3.7 Globulin 2.6 Albumin/Globulin Ratio 1.4 ABG Interpretation ABG results: 08/09/24 08/09/24 08/10/24 15:43 17:53 04:39 ABG pH 7.31 L 7.30 L ABG pCO2 50 H 57 H ABG pO2 149 H 156 H ABG HCO3 25 28 H ABG O2 Saturation 99 H 100 H ABG Base Excess -2 1 VBG pH 7.34 VBG pCO2 44 VBG pO2 35 VBG Base Excess -3 08/11/24 03:20 ABG pH 7.40 D ABG pCO2 47 D ABG pO2 155 H ABG HCO3 29 H ABG O2 Saturation 100 H ABG Base Excess 3 VBG pH VBG pCO2 VBG pO2 VBG Base Excess Quality Measures Quality Measures none Advance care planning discussed with:: patient Assessment & Plan Assessment Current Active Medications: Generic Name Dose Route Start Last Admin Trade Name Freq PRN Reason Stop Dose Admin Acetaminophen 650 mg 08/09/24 06:35 Acetaminophen 325 Mg Tablet PO 09/08/24 06:34 Q6HR PRN Fever >100.3F or pain Aspirin 81 mg 08/11/24 09:00 08/15/24 08:30 Aspirin 81 Mg Chew GT 09/10/24 08:59 81 mg QDAY JONATHAN Administration Benztropine Mesylate 2 mg 08/13/24 21:00 08/15/24 08:30 Benztropine 0.5 Mg Tablet PO 09/12/24 20:59 2 mg BID JONATHAN Administration Dextrose 25 ml 08/11/24 16:46 08/11/24 23:38 Dextrose 50%-Water Inj 50 Ml Syringe IV 09/10/24 16:45 25 ml Q15MIN PRN Administration BG 50-70 responsive npo pt Dextrose 50 ml 08/11/24 16:46 Dextrose 50%-Water Inj 50 Ml Syringe IV 09/10/24 16:45 Q15MIN PRN BG <50 OR BG <70 & pt unresponsive Enoxaparin Sodium 40 mg 08/09/24 09:00 08/15/24 08:30 Enoxaparin Sod Inj 40 Mg/0.4 Ml Syringe SC 08/23/24 08:59 40 mg DAILY JONATHAN Administration Glucagon 1 mg 08/11/24 16:46 Glucagon Inj 1 Mg Vial IM Q15MIN PRN BG <70, and no IV access Piperacillin/Tazobactam/Dextrose 3.375 gm in 50 mls @ 12.5 mls/hr 08/09/24 07:15 08/15/24 13:38 Zosyn IV 08/16/24 07:14 12.5 mls/hr Q8HR JONATHAN Administration Protocol Mirtazapine 30 mg 08/11/24 21:00 08/14/24 21:30 Mirtazapine 15 Mg Tablet PO 09/10/24 20:59 30 mg HS JONATHAN Administration Ondansetron HCl 4 mg 08/09/24 06:35 Ondansetron Inj 2 Mg/Ml Inj 2 Ml IV 09/08/24 06:34 Q8HR PRN NAUSEA OR VOMITING Protocol Pramipexole Dihydrochloride 0.25 mg 08/12/24 21:00 08/14/24 21:30 Pramipexole 0.25 Mg Tablet PO 09/11/24 20:59 0.25 mg HS JONATHAN Administration Valproic Acid 500 mg 08/09/24 21:00 08/15/24 08:30 Valproic Acid Syrup 250 Mg/5 Ml Udc PO 09/08/24 20:59 500 mg BID JONATHAN Administration Plan Assessment 69yr F with PMH of intellectual disability, schizophrenia who presents to the ER from a skilled nursing for vomiting and aspiration admitted for sepsis due to aspiration pneumonia and transferred to the ICU for acute hyxpoxic respiratory failure. #Acute hypoxic respiratory failure due aspiration pneumonia - improving #Sepsis improving #Aspiration PNA CXR 08/09 shows mucus plugging and atelectasis of the right lung, improved after bronchoscope Pt is s/p extubation and bronchoscopy Pt had extensive mucus plugging on bronchoscopy that were cleared Urine shows GPC MSRA negative Blood cultures no growth Video Fluoroscopy showed pharyngeal dysmotility Will advance tolerate to see how pt tolerates Bronchial washing unremarkable Pt continues with improve, will deescalate abx Patient will need home oxygen as she continues to desaturate with ambulation, and has also desaturated to 88% while laying in bed real estate services coordinator to set up oxygen and SNF placement Plan: - Augmentin p.o. - Oxygen as needed, wean down as tolerated - Dysphagia 1 diet, advance as tolerated #History of IBS Plan: - Hold home Linzess #Acute on chronic encephalopathy, resolved #Schizophrenia #Intellectual disability Plan: - Continue home valproic acid - Continue Remeron - Pramipexole 0.25 hs - Resumed benztropine - Aspiration precautions #Health Maintenance Disposition: MedSurg DVT prophylaxis: Lovenox GI prophylaxis: Pepcid Diet: Dysphagia 1 CODE STATUS: Full code Patient seen and care discussed with my attending physician, Dr. Tahira Eden, PGY-1 Attending Provider Attestation/Addendum I attest that I was physically present for the evaluation, physical examination, lab and imaging review of the patient with the residents. I discussed the case with the residents and agree with the findings and plans of care as documented above. Jonathan Hoffmann MD
--- NOTE | 2024-08-15 15:38 | PD.RESDS ---
Planned Discharge Date 08/15/24 DS: Providers Provider Date of admission: 08/08/24 22:39 Primary care physician: Physician No Primary/Family Admitting Provider: Oscar Marquis MD Attending Provider on Admission: Jonathan Hoffmann MD Consults: 08/09/24 06:34 Referral Speech Therapy Urgent Comment: 08/14/24 13:47 Referral Physical Therapy Urgent Comment: Physician Instructions: Attending Provider on DC: Jonathan Hoffmann MD Discharging Provider: Jonathan Hoffmann MD DS: Diagnosis Problem List Completed Was Problem List Reviewed/Reconciled?: Yes Hospital Course Hospital Course Hospital course: César is 69yr F with PMH of intellectual disability, Parkinson's, schizophrenia, osteoporosis who was admitted for acute hypoxic respiratory failure secondary to aspiration pneumonia leading to severe atelectasis and mucous plugging requiring intubation and ICU level of care. Patient had come to the ED with a blood pressure 139/109, tachycardia 126, tachypneic 22, afebrile and was saturating at 96% on 7-8L oxy mask. Labs had showed leukocytosis 19, lactic acid 2.1, UA positive for UTI, chest x-ray suspicious for early right base pneumonia, EKG sinus tachycardia heart rate 129, QT 430. Patient was started on was given Zosyn and was given 1 L bolus NS. Medicine was consulted and patient admitted to the floors. While on floors, patient was receiving antibiotic treatment for aspiration pneumonia. Rapid response was called for patient on August 09 for desaturation and chest x-ray showed deviation of the trachea, likely related to mucous plugging and atelectasis. Patient was then intubated and upgraded to the ICU for further care. While in the ICU patient had bronchoscopy as she had mucous plugging that was significant in the right and left upper lobes of the lung in which they were removed. BAL samples were obtained and had come up negative. Patient was then extubated after passing spontaneous breathing trial and was downgraded back to the floors. She had video fluoroscopy for further evaluation of her aspiration which showed pharyngeal dysmotility and was seen by Speech therapy who recommended dysphagia 1 diet. prison was contacted and we were able to get their dentures back. Patient continued to improve however they continue to desaturate at times, however after 6-minute walk test, patient continued to desaturate upon walking. Decision was made to get patient home oxygen, and then because of this, patient will need to go to SNF as patient is coming from senior living. Patient was excepted to SNF and then was discharged to their with home oxygen. We also recommend patient to follow-up with PCP and to have a medication reconciliation in regards to some of her psych meds as this may have contributed to her aspirating. We also prescribed antibiotic course to finish her aspiration pneumonia antibiotic course, and this is Augmentin for 5 days. Patient came in and found to have 2 or more SIRS criteria and was evaluated for sepsis. However, based upon further work-up, sepsis was ruled out as patient did not have end organ damage and did not require pressure support. Discharge Instructions: Follow-up with your PCP within 1 week Use home oxygen at home, maintain oxygen saturations above 95% Take medicines as prescribed We have prescribed you a remaining antibiotic course for aspiration pneumonia, take as directed Use your dentures at all times especially when eating as we believe this had contributed to you aspirating Consider medication reconciliation with your PCP in regards to some of your psych meds as this may have contributed to you aspirating as well Return to ER if symptoms worsen or return Problem List: #Acute hypoxic respiratory failure due aspiration pneumonia #Sepsis, ruled out #Aspiration PNA #History of IBS #Acute on chronic encephalopathy, resolved #Schizophrenia #Intellectual disability Discharge summary was reviewed with my attending Dr. Tahira Eden, PGY-1 Time Spent with Patient Time attestation: Total time spent providing and/or coordinating discharge services: Time spent: Less than 30 minutes Exam Vital Signs Temp Pulse Resp BP Pulse Ox O2 Del Method O2 Flow Rate 97.7 F 83 16 102/78 95 Room Air 1 08/15/24 12:00 08/15/24 12:00 08/15/24 12:00 08/15/24 12:00 08/15/24 12:00 08/15/24 12:00 08/14/24 12:00 FiO2 40 08/13/24 04:00 Narrative Exam General: AAOx2, NAD, intellectual disability HEENT: Moist mucous membranes, conjunctiva clear, EOMI, PERRLA, has dentures Cardiovascular: S1, S2, radial pulses +2 bilat, RRR Pulmonary: Appears to have some secretions at his time GI: No tenderness to light or deep palpitation, no guarding, rigidity, rebound tenderness or distension Extremities: No presence of trace or pitting edema in lower extremities bilaterally, dorsalis pedis pulses +2 bilaterally Neuro: AAOx2, no focal motor or sensory deficits in the UE or LE bilat Psych: Able to cooperate Discharge Plan Plan Patient Disposition: Xfer Skilled Nsg Fac (SNF) Patient condition on transfer: Stable Care Plan Goals: Discharge instructions Follow-up with your PCP within 1 week Use home oxygen at home, maintain oxygen saturations above 95% Take medicines as prescribed We have prescribed you a remaining antibiotic course for aspiration pneumonia, take as directed Use your dentures at all times especially when eating as we believe this had contributed to you aspirating Consider medication reconciliation with your PCP in regards to some of your psych meds as this may have contributed to you aspirating as well Return to ER if symptoms worsen or return Prescriptions/Referrals Prescriptions/Med Rec: New amoxicillin-pot clavulanate [Augmentin] 500-125 mg tablet 1 tab PO Q8H Qty: 10 0RF Continued divalproex 500 mg Tablet Extended Release 24 Hr 500 mg PO HS alendronate 70 mg Tablet 70 mg PO DAILY benztropine 2 mg tablet 2 mg PO BID aspirin 81 mg tablet,chewable 81 mg PO .AM mirtazapine 30 mg tablet 30 mg PO HS pramipexole 0.75 mg tablet 0.25 mg PO HS quetiapine 100 mg tablet 200 mg PO .COMPLEX Rx Instructions: 200 mg orally 1.5 Tabs HS, 0.5 Tabs PM; administer on day 2 of therapy Ingrezza 40 mg capsule 40 mg PO QDAY Linzess 72 mcg capsule 72 mcg PO QDAY Referrals: No Primary/Family,Physician [Primary Care Provider] - Patient/Caregiver Discharge Instructions Discharge Activity: as per physical therapy Education Materials: Gastroesophageal Reflux MATTEO and ..., Dysphagia Aspiration, Understanding Aspiration (Child), Dysphagia Aspiration Tx Print Language: [place] Stand Alone Forms: Zenaida Award Info., Patient Portal Info Letter Discharge Order Discharge Orders: Discharge (Routine); Ordered 08/15/24 Ordered By: Bebe Lo Quality Discharge Quality Measures VTE prophylaxis (Lovenox) Attestestation Attestation I attest that I was physically present for the evaluation, physical examination, lab and imaging review of the patient with the residents. I discussed the case with the residents and agree with the findings and plans of care as documented above. Jonathan Hoffmann MD
--- NOTE | 2024-08-15 16:25 | PC.SS ---
Addendum entered by Gumaro Solorio 08/15/24 16:37: SS updated Sarai Herbert, of PASRR clearance needed SS spoke with [facility], updated on PASRR clearance needed Original Note: SS completed PASRR Level 2; will need clearance SS uploaded referral packet via [employer] SS spoke with Sarai Herbert, confirmed has bed and holding for pt SS spoke with [facility], confirmed plan is for pt to go to [facility]
[2024-08-15] MEDS: AMOXICILLIN/POT CLAV 875 TABLET 1 TAB PO (21:28)
[2024-08-15] MEDS: MIRTAZAPINE 15 MG TABLET 30 MG PO (21:28)
[2024-08-15] MEDS: PRAMIPEXOLE 0.25 MG TABLET PO (21:29)
[2024-08-16] VITALS (10 sets, daily range): BP systolic 126–149; BP diastolic 56–85; PULSE 76–96; RESP 17–21; TEMP 36.2–36.4; O2SAT 94–99; BMI 13.0
[2024-08-16 06:44] LABS: Basophils # (Auto) 0.1 Thou/mm3 (0.0-0.2); Basophils % (Auto) 1 % (0-2.5); Eosinophils # (Auto) 0.3 Thou/mm3 (0.0-0.5); Eosinophils % (Auto) 3 % (0-10); Hematocrit 37.1 % (36.0-46.0); Hemoglobin 12.7 g/dL (12.0-16.0); Immature Granulocytes % (Auto) 2 % (0-0); Immature Granulocytes Auto 0.14 Thou/mm3 (0.00-0.00); Lymphocytes # (Auto) 2.4 Thou/mm3 (1.0-4.8); Lymphocytes % (Auto) 29 % (10-50); Mean Corpuscular HGB Conc 34.2 g/dl (31.0-37.0); Mean Corpuscular Hemoglobin 31.2 pg (25.0-35.0); Mean Corpuscular Volume 91 fL (80-100); Monocytes # (Auto) 1.2 Thou/mm3 (0.0-0.8); Monocytes % (Auto) 15 % (0-12); Neutrophils # (Auto) 4.3 Thou/mm3 (1.8-7.7); Neutrophils % (Auto) 51 % (37-80); Nucleated Red Blood Cell % 0 /100 WBC (0); Platelet Count 322 Thou/mm3 (140-440); Red Blood Count 4.07 Miln/mm3 (4.00-5.20); White Blood Count 8.4 Thou/mm3 (3.6-11.0)
[2024-08-16 07:05] LABS: Alanine Aminotransferase 17 U/L (10-49); Albumin, Serum 3.6 gm/dL (3.4-4.8); Albumin/Globulin Ratio 1.5 (1.2-2.2); Alkaline Phosphatase 105 U/L (46-116); Anion Gap 7 (7-16); Aspartate Amino Transferase 17 U/L (0-34); BUN/Creatinine Ratio 34 Ratio (12-20); Bilirubin,Total 0.2 mg/dL (0.3-1.2); Blood Urea Nitrogen 17 mg/dL (9-23); Calcium 8.8 mg/dL (8.3-10.6); Calcium (Corrected) 9.1 mg/dL (8.5-10.1); Carbon Dioxide 29.7 mMol/L (20.0-31.0); Chloride 106 mMol/L (98-107); Creatinine (Component) 0.5 mg/dL (0.6-1.3); Estimated Creatinine Clearance 64.7 mL/min (>60); Globulin 2.4 gm/dL (2.3-3.5); Glucose 96 mg/dL (74-106); Osmolality,Calculated 286 (275-295); Potassium 3.8 mMol/L (3.4-5.1); Sodium 143 mMol/L (136-145); eGFR > 60 See Note
[2024-08-16 07:06] LABS: Valporic Acid (Depak)* 61.7 mg/L (50.0-100.0)
[2024-08-16] MEDS: VALPROIC ACID SYRUP 250 MG/5 ML UDC 500 MG PO ×2 (08:45→21:54)
[2024-08-16] MEDS: BENZTROPINE 0.5 MG TABLET 2 MG PO ×2 (08:45→21:55)
[2024-08-16] MEDS: ENOXAPARIN SOD INJ 40 MG/0.4 ML SYRINGE SC (08:45)
[2024-08-16] MEDS: ASPIRIN 81 MG CHEW GT (08:45)
[2024-08-16] MEDS: AMOXICILLIN/POT CLAV 875 TABLET 1 TAB PO ×2 (08:45→21:55)
--- NOTE | 2024-08-16 10:22 | PC.SS ---
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 SS has informed Juliana from [facility] who will follow up with DON to confirm they can still accept pt. SS has spoken to Heather from patient's half-way to inform d/c to SNF.
--- NOTE | 2024-08-16 15:36 | PD.RESDS ---
Planned Discharge Date 08/16/24 DS: Providers Provider Date of admission: 08/08/24 22:39 Primary care physician: Physician No Primary/Family Admitting Provider: Oscar Marquis MD Attending Provider on Admission: Jonathan Hoffmann MD Consults: 08/09/24 06:34 Referral Speech Therapy Urgent Comment: 08/14/24 13:47 Referral Physical Therapy Urgent Comment: Physician Instructions: Attending Provider on DC: Jonathan Hoffmann MD Discharging Provider: Jonathan Hoffmann MD DS: Diagnosis Problem List Completed Was Problem List Reviewed/Reconciled?: Yes Hospital Course Hospital Course Hospital course: César is 69yr F with PMH of intellectual disability, Parkinson's, schizophrenia, osteoporosis who was admitted for acute hypoxic respiratory failure secondary to aspiration pneumonia leading to severe atelectasis and mucous plugging requiring intubation and ICU level of care. Patient had come to the ED with a blood pressure 139/109, tachycardia 126, tachypneic 22, afebrile and was saturating at 96% on 7-8L oxy mask. Labs had showed leukocytosis 19, lactic acid 2.1, UA positive for UTI, chest x-ray suspicious for early right base pneumonia, EKG sinus tachycardia heart rate 129, QT 430. Patient was started on was given Zosyn and was given 1 L bolus NS. Medicine was consulted and patient admitted to the floors. While on floors, patient was receiving antibiotic treatment for aspiration pneumonia. Rapid response was called for patient on August 09 for desaturation and chest x-ray showed deviation of the trachea, likely related to mucous plugging and atelectasis. Patient was then intubated and upgraded to the ICU for further care. While in the ICU patient had bronchoscopy as she had mucous plugging that was significant in the right and left upper lobes of the lung in which they were removed. BAL samples were obtained and had come up negative. Patient was then extubated after passing spontaneous breathing trial and was downgraded back to the floors. She had video fluoroscopy for further evaluation of her aspiration which showed pharyngeal dysmotility and was seen by Speech therapy who recommended dysphagia 1 diet. [facility] was contacted and we were able to get their dentures back. Patient continued to improve however they continue to desaturate at times, however after 6-minute walk test, patient continued to desaturate upon walking. Decision was made to get patient home oxygen, and then because of this, patient will need to go to SNF as [facility]. Patient was excepted to SNF and then was discharged to their with home oxygen. We also recommend patient to follow-up with PCP and to have a medication reconciliation in regards to some of her psych meds as this may have contributed to her aspirating. We also prescribed antibiotic course to finish her aspiration pneumonia antibiotic course, and this is Augmentin for 5 days. Patient came in and found to have 2 or more SIRS criteria and was evaluated for sepsis. However, based upon further work-up, sepsis was ruled out as patient did not have end organ damage and did not require pressure support. Pt requires PSAR evaluation from state evaluators as patient requires oxygen at home and will be going [facility] SN[facility] than her [facility]. Discharge Instructions: Follow-up with your PCP within 1 week Use home oxygen at home, maintain oxygen saturations above 95% Take medicines as prescribed We have prescribed you a remaining antibiotic course for aspiration pneumonia, take as directed Use your dentures at all times especially when eating as we believe this had contributed to you aspirating Consider medication reconciliation with your PCP in regards to some of your psych meds as this may have contributed to you aspirating as well Return to ER if symptoms worsen or return Problem List: #Acute hypoxic respiratory failure due aspiration pneumonia #Sepsis, ruled out #Aspiration PNA #History of IBS #Acute on chronic encephalopathy, resolved #Schizophrenia #Intellectual disability Discharge summary was reviewed with my attending Dr. Tahira Eden, PGY-1 Time Spent with Patient Time attestation: Total time spent providing and/or coordinating discharge services: Time spent: Greater than 30 minutes Exam Vital Signs Temp Pulse Resp BP Pulse Ox O2 Del Method O2 Flow Rate 97.5 F 90 21 H 139/83 H 95 Nasal Cannula 2 08/16/24 12:00 08/16/24 12:00 08/16/24 12:00 08/16/24 12:00 08/16/24 12:00 08/16/24 12:08/16/24 12:00 FiO2 40 08/13/24 04:00 Narrative Exam General: AAOx2, NAD, intellectual disability HEENT: Moist mucous membranes, conjunctiva clear, EOMI, PERRLA, has dentures Cardiovascular: S1, S2, radial pulses +2 bilat, RRR Pulmonary: Appears to have some secretions at his time GI: No tenderness to light or deep palpitation, no guarding, rigidity, rebound tenderness or distension Extremities: No presence of trace or pitting edema in lower extremities bilaterally, dorsalis pedis pulses +2 bilaterally Neuro: AAOx2, no focal motor or sensory deficits in the UE or LE bilat Psych: Able to cooperate Discharge Plan Plan Patient Disposition: Xfer Skilled Nsg Fac (SNF) Patient condition on transfer: Stable Care Plan Goals: Discharge instructions Follow-up with your PCP within 1 week Use home oxygen at home, maintain oxygen saturations above 95% Take medicines as prescribed We have prescribed you a remaining antibiotic course for aspiration pneumonia, take as directed Use your dentures at all times especially when eating as we believe this had contributed to you aspirating Consider medication reconciliation with your PCP in regards to some of your psych meds as this may have contributed to you aspirating as well Return to ER if symptoms worsen or return Prescriptions/Referrals Prescriptions/Med Rec: New amoxicillin-pot clavulanate [Augmentin] 500-125 mg tablet 1 tab PO TID 5 Days Qty: 15 0RF Rx Instructions: Take one tablet by mouth three times a day Continued divalproex 500 mg Tablet Extended Release 24 Hr 500 mg PO HS alendronate 70 mg Tablet 70 mg PO DAILY benztropine 2 mg tablet 2 mg PO BID aspirin 81 mg tablet,chewable 81 mg PO .AM mirtazapine 30 mg tablet 30 mg PO HS pramipexole 0.75 mg tablet 0.25 mg PO HS quetiapine 100 mg tablet 200 mg PO .COMPLEX Rx Instructions: 200 mg orally 1.5 Tabs HS, 0.5 Tabs PM; administer on day 2 of therapy Ingrezza 40 mg capsule 40 mg PO QDAY Linzess 72 mcg capsule 72 mcg PO QDAY Referrals: No Primary/Family,Physician [Primary Care Provider] - Patient/Caregiver Discharge Instructions Discharge Activity: as per physical therapy Education Materials: Gastroesophageal Reflux MATTEO and ..., Dysphagia Aspiration, Understanding Aspiration (Child), Dysphagia Aspiration Tx Print Language: Occitan Stand Alone Forms: Zenaida Award Info., Patient Portal Info Letter Discharge Order Discharge Orders: Discharge (Routine); Ordered 08/15/24 Ordered By: Beeb Lo Quality Discharge Quality Measures VTE prophylaxis (Lovenox) Attestestation MD Attestation I attest that I was physically present for the evaluation, physical examination, lab and imaging review of the patient with the residents. I discussed the case with the residents and agree with the findings and plans of care as documented above. Jonathan Hoffmann MD
[2024-08-16] MEDS: MIRTAZAPINE 15 MG TABLET 30 MG PO (21:55)
[2024-08-16] MEDS: PRAMIPEXOLE 0.25 MG TABLET PO (21:55)
[2024-08-17] VITALS: BP 135/66; PULSE 82; PULSE 84; RESP 20; TEMP 36.2; O2SAT 100
[2024-08-17 04:00] VITALS: BP 130/74; PULSE 74; PULSE 77; RESP 18; TEMP 36.6; O2SAT 95
[2024-08-17 06:02] LABS: Basophils # (Auto) 0.1 Thou/mm3 (0.0-0.2); Basophils % (Auto) 1 % (0-2.5); Eosinophils # (Auto) 0.2 Thou/mm3 (0.0-0.5); Eosinophils % (Auto) 3 % (0-10); Hematocrit 45.2 % (36.0-46.0); Hemoglobin 14.6 g/dL (12.0-16.0); Immature Granulocytes % (Auto) 2 % (0-0); Immature Granulocytes Auto 0.15 Thou/mm3 (0.00-0.00); Lymphocytes # (Auto) 2.7 Thou/mm3 (1.0-4.8); Lymphocytes % (Auto) 38 % (10-50); Mean Corpuscular HGB Conc 32.3 g/dl (31.0-37.0); Mean Corpuscular Hemoglobin 30.4 pg (25.0-35.0); Mean Corpuscular Volume 94 fL (80-100); Monocytes # (Auto) 0.9 Thou/mm3 (0.0-0.8); Monocytes % (Auto) 13 % (0-12); Neutrophils % (Auto) 43 % (37-80); Nucleated Red Blood Cell % 0 /100 WBC (0); Platelet Count 383 Thou/mm3 (140-440); RDW Standard Deviation 46.1 fL (36.4-46.3); Red Blood Count 4.81 Miln/mm3 (4.00-5.20); White Blood Count 7.1 Thou/mm3 (3.6-11.0)
[2024-08-17 06:32] LABS: Alanine Aminotransferase 18 U/L (10-49); Albumin, Serum 4.2 gm/dL (3.4-4.8); Albumin/Globulin Ratio 1.4 (1.2-2.2); Alkaline Phosphatase 119 U/L (46-116); Anion Gap 9 (7-16); Aspartate Amino Transferase 21 U/L (0-34); BUN/Creatinine Ratio 38 Ratio (12-20); Bilirubin,Total 0.3 mg/dL (0.3-1.2); Blood Urea Nitrogen 19 mg/dL (9-23); Calcium 9.6 mg/dL (8.3-10.6); Calcium (Corrected) 9.6 mg/dL (8.5-10.1); Chloride 103 mMol/L (98-107); Creatinine (Component) 0.5 mg/dL (0.6-1.3); Estimated Creatinine Clearance 64.7 mL/min (>60); Globulin 2.9 gm/dL (2.3-3.5); Glucose 93 mg/dL (74-106); Osmolality,Calculated 290 (275-295); Potassium 4.2 mMol/L (3.4-5.1); Sodium 145 mMol/L (136-145); Total Protein 7.1 gm/dL (5.7-8.2); eGFR > 60 See Note
[2024-08-17 07:37] VITALS: BP 124/84; PULSE 72; RESP 18; TEMP 36.6; O2SAT 95
[2024-08-17] MEDS: BENZTROPINE 0.5 MG TABLET 2 MG PO (09:32)
[2024-08-17] MEDS: AMOXICILLIN/POT CLAV 875 TABLET 1 TAB PO (09:32)
[2024-08-17] MEDS: ASPIRIN 81 MG CHEW GT (09:32)
[2024-08-17] MEDS: ENOXAPARIN SOD INJ 40 MG/0.4 ML SYRINGE SC (09:33)
[2024-08-17] MEDS: VALPROIC ACID SYRUP 250 MG/5 ML UDC 500 MG PO (09:43)
[2024-08-17 11:40] VITALS: BP 138/71; PULSE 75; RESP 18; TEMP 36.6; O2SAT 95
--- NOTE | 2024-08-17 12:45 | PC.SS ---
SS was informed by Piedad from [facility] they are unable to accept pt. SS spoke to caregiver, Heather by phone who is aware and is requesting pt still go to SNF for rehab. has sent inquiry to the rest of the local SNF (previous inquiry sent by was only sent to [facility]). Caregiver, Heather is requesting [facility]. SS has spoke to Emily from [facility] who is requesting an onsite evaluation and will speak with caregiver, Heather about pt being on Seroquil at home. SS has spoke to Chuckie from [facility] who states evaluation has been cleared. [facility] is still reviewing inquiry.
--- NOTE | 2024-08-17 14:32 | ESDS_ITS ---
Planned Discharge Date 08/17/24 DS: Providers Provider Date of admission: 08/08/24 22:39 Primary care physician: Physician No Primary/Family Admitting Provider: Oscar Marquis MD Attending Provider on Admission: Jonathan Hoffmann MD Consults: 08/09/24 06:34 Referral Speech Therapy Urgent Comment: 08/14/24 13:47 Referral Physical Therapy Urgent Comment: Physician Instructions: Attending Provider on DC: Kuldeep Chavarria MD Discharging Provider: Kuldeep Chavarria MD DS: Diagnosis Problem List Completed Was Problem List Reviewed/Reconciled?: Yes Hospital Course Hospital Course Hospital course: César is 69yr F with PMH of intellectual disability, Parkinson's, schizophrenia, osteoporosis who was admitted for acute hypoxic respiratory failure secondary to aspiration pneumonia leading to severe atelectasis and mucous plugging requiring intubation and ICU level of care. Patient had come to the ED with a blood pressure 139/109, tachycardia 126, tachypneic 22, afebrile and was saturating at 96% on 7-8L oxy mask. Labs had showed leukocytosis 19, lactic acid 2.1, UA positive for UTI, chest x-ray suspicious for early right base pneumonia, EKG sinus tachycardia heart rate 129, QT 430. Patient was started on was given Zosyn and was given 1 L bolus NS. Medicine was consulted and patient admitted to the floors. While on floors, patient was receiving antibiotic treatment for aspiration pneumonia. Rapid response was called for patient on August 09 for desaturation and chest x-ray showed deviation of the trachea, likely related to mucous plugging and atelectasis. Patient was then intubated and upgraded to the ICU for further care. While in the ICU patient had bronchoscopy as she had mucous plugging that was significant in the right and left upper lobes of the lung in which they were removed. BAL samples were obtained and had come up negative. Patient was then extubated after passing spontaneous breathing trial and was downgraded back to the floors. She had video fluoroscopy for further evaluation of her aspiration which showed pharyngeal dysmotility and was seen by Speech therapy who recommended dysphagia 1 diet. [facility] was contacted and we were able to get their dentures back. Patient continued to improve however they continue to desaturate at times, however after 6-minute walk test, patient continued to desaturate upon walking. Decision was made to get patient home oxygen, and then because of this, patient will need to go to SNF as patient is coming from assisted. Patient was excepted to SNF and then was discharged to their with home oxygen. We also recommend patient to follow-up with PCP and to have a medication reconciliation in regards to some of her psych meds as this may have contributed to her aspirating. We also prescribed antibiotic course to finish her aspiration pneumonia antibiotic course, and this is Augmentin for 5 days. Patient came in and found to have 2 or more SIRS criteria and was evaluated for sepsis. However, based upon further work-up, sepsis was ruled out as patient did not have end organ damage and did not require pressure support. Pt requires PSAR evaluation from state evaluators as patient requires oxygen at home and will be going to SNF rather than her assisted. Pt was then evaluated and approved to go to SNF. Discharge Instructions: Follow-up with your PCP within 1 week Use home oxygen at home, maintain oxygen saturations above 95% Take medicines as prescribed We have prescribed you a remaining antibiotic course for aspiration pneumonia, take as directed Use your dentures at all times especially when eating as we believe this had contributed to you aspirating Consider medication reconciliation with your PCP in regards to some of your psych meds as this may have contributed to you aspirating as well Return to ER if symptoms worsen or return Problem List: #Acute hypoxic respiratory failure due aspiration pneumonia #Sepsis, ruled out #Aspiration PNA #History of IBS #Acute on chronic encephalopathy, resolved #Schizophrenia #Intellectual disability Discharge summary was reviewed with my attending Dr. Aura Eden, PGY-1 Time Spent with Patient Time attestation: Total time spent providing and/or coordinating discharge services: Time spent: Greater than 30 minutes Exam Vital Signs Temp Pulse Resp BP Pulse Ox O2 Del Method O2 Flow Rate 97.9 F 75 18 138/71 H 95 Room Air 2 08/17/24 11:40 08/17/24 11:40 08/17/24 11:40 08/17/24 11:40 08/17/24 11:40 08/17/24 11:40 08/16/24 16:00 FiO2 40 08/13/24 04:00 Narrative Exam General: AAOx2, NAD, intellectual disability HEENT: Moist mucous membranes, conjunctiva clear, EOMI, PERRLA, has dentures Cardiovascular: S1, S2, radial pulses +2 bilat, RRR Pulmonary: Appears to have some secretions at his time GI: No tenderness to light or deep palpitation, no guarding, rigidity, rebound tenderness or distension Extremities: No presence of trace or pitting edema in lower extremities bilaterally, dorsalis pedis pulses +2 bilaterally Neuro: AAOx2, no focal motor or sensory deficits in the UE or LE bilat Psych: Able to cooperate Discharge Plan Plan Patient Disposition: Xfer Skilled Nsg Fac (SNF) Patient condition on transfer: Stable Care Plan Goals: Discharge instructions Follow-up with your PCP within 1 week Use home oxygen at home, maintain oxygen saturations above 95% Take medicines as prescribed We have prescribed you a remaining antibiotic course for aspiration pneumonia, take as directed Use your dentures at all times especially when eating as we believe this had contributed to you aspirating Consider medication reconciliation with your PCP in regards to some of your psych meds as this may have contributed to you aspirating as well Return to ER if symptoms worsen or return Prescriptions/Referrals Prescriptions/Med Rec: New amoxicillin-pot clavulanate [Augmentin] 500-125 mg tablet 1 tab PO TID 2 Days Qty: 6 0RF Rx Instructions: Take one tablet by mouth three times a day Continued divalproex 500 mg Tablet Extended Release 24 Hr 500 mg PO HS alendronate 70 mg Tablet 70 mg PO DAILY benztropine 2 mg tablet 2 mg PO BID aspirin 81 mg tablet,chewable 81 mg PO .AM mirtazapine 30 mg tablet 30 mg PO HS pramipexole 0.75 mg tablet 0.25 mg PO HS quetiapine 100 mg tablet 200 mg PO .COMPLEX Rx Instructions: 200 mg orally 1.5 Tabs HS, 0.5 Tabs PM; administer on day 2 of therapy Ingrezza 40 mg capsule 40 mg PO QDAY Linzess 72 mcg capsule 72 mcg PO QDAY Referrals: No Primary/Family,Physician [Primary Care Provider] - Patient/Caregiver Discharge Instructions Discharge Activity: as per physical therapy Education Materials: Gastroesophageal Reflux MATTEO and ..., Dysphagia Aspiration, Understanding Aspiration (Child), Dysphagia Aspiration Tx Print Language: Tristanian Stand Alone Forms: Zenaida Award Info., Patient Portal Info Letter Discharge Order Discharge Orders: Discharge (Routine); Ordered 08/15/24 Ordered By: Bebe Lo Quality Discharge Quality Measures VTE prophylaxis (Lovenox) Attestestation MD Attestation I have examined the patient, reviewed labs and imaging findings, discussed the case with the resident(s), and reviewed entered orders. I agree with the plan of care as outlined in this note. Time Spent: [address] Aura MD
[2024-08-17 14:53] VITALS: PULSE 72; RESP 16; O2SAT 97
[2024-08-17 16:00] VITALS: BP 135/70; PULSE 72; RESP 16; TEMP 36.6; O2SAT 97
--- NOTE | 2024-08-17 16:31 | PC.SS ---
SS sent PAS[facility] through file exchange to [facility].
--- NOTE | 2024-08-17 18:13 | PC.NURSE ---
report was given to nurse soriano at [facility] at [phone]
== END 2024-08-17 17:02 | disposition skilled nursing facility (03) | DRG 208 ==
LOC: SERX 22:17 → SERHOLD 22:55 → S3SX 08-09 01:31 → S2SX 08-09 14:25 → S3SX 08-11 17:53
PROVIDERS: Physician Assistant; Registered Nurse General Practice; Student in an Organized Health Care Education/Training Program; Admitting Provider Internal Medicine; Emergency Provider Emergency Medicine; Visit Provider Student in an Organized Health Care Education/Training Program
DX: J69.0 Pneumonitis due to inhalation of food and vomit (principal); G93.41 Metabolic encephalopathy; J96.01 Acute respiratory failure with hypoxia; R65.20 Severe sepsis without septic shock; N39.0 Urinary tract infection, site not specified; J98.11 Atelectasis; J68.0 Bronchitis and pneumonitis due to chemicals, gases, fumes and vapors; F70 Mild intellectual disabilities; G20.A1 Parkinson's disease without dyskinesia, without mention of fluctuations; M81.0 Age-related osteoporosis without current pathological fracture; F20.9 Schizophrenia, unspecified; K58.9 Irritable bowel syndrome, unspecified; I95.2 Hypotension due to drugs; I45.10 Unspecified right bundle-branch block; K21.9 Gastro-esophageal reflux disease without esophagitis; T42.75XA Adverse effect of unspecified antiepileptic and sedative-hypnotic drugs, initial encounter; J39.8 Other specified diseases of upper respiratory tract; Z79.82 Long term (current) use of aspirin; Z79.83 Long term (current) use of bisphosphonates; Z87.01 Personal history of pneumonia (recurrent)
CPT/HCPCS: 36415; 36600; 71045; 74230; 80053; 80164; 81001; 82803; 83605; 83735; 83880; 84100; 84145; 85025; 86140; 87040; 87070; 87075; 87081; 87086; 87205; 87400; 87811; 92526; 92610; 93005; 93225; 94002; 94003; 94667; 96365; 97162; 99285; J0456; J0613; J1650; J2250; J2543; J2704; J3010; J3475; J3480; J3490; J7030; J7040; J7042; J7050; J7120; A9270

== ENCOUNTER → 2024-09-21 | Outpatient (CLI) | payer MEDICARE, MEDICAID, SELFPAY ==
--- NOTE | 2024-09-21 14:24 | XR_ITS ---
Examination: Left foot 2 views Technique one AP lateral left foot 2 views Date and time: 05/24/2024 1441 hours INDICATIONS: Foot pain months. FINDINGS: Mild to moderate bunion deformity Mild narrowing first metatarsophalangeal joint No fracture Pes cavus deformity Small benign osteophyte dorsal surface of the talus No cortical bone destruction IMPRESSION: Mild to moderate bunion deformity Pes cavus
== END | disposition home or self-care (01) ==
PROVIDERS: PCP Nurse Practitioner Family; Referring Provider Nurse Practitioner Family; Visit Provider Nurse Practitioner Family
DX: M21.612 Bunion of left foot (principal); M25.775 Osteophyte, left foot
CPT/HCPCS: 73620

== ENCOUNTER → 2024-09-28 | Outpatient (CLI) | payer MEDICARE, MEDICAID, SELFPAY ==
--- NOTE | 2024-09-28 09:23 | XR_ITS ---
Examination: Duplex scan of the lower extremity, unilateral left complete Date and time of exam: September 28, 2024 0940 hours INDICATIONS: Left leg swelling beginning 2 weeks ago Technique: Duplex scan of the extremity veins using B-mode/grayscale imaging and Doppler spectral analysis and color flow Attention is directed to internal echogenicity, compression and augmentation involving these veins, color flow assessment, spectral analysis Findings: Major deep venous structures in the extremity demonstrate normal course and caliber. There is no evidence of deep vein thrombosis. Normal color flow and spectral analysis Impression: Negative for DVT..
== END | disposition home or self-care (01) ==
LOC: COPL 09:09 → CDIM 10-06 09:19
PROVIDERS: PCP Nurse Practitioner Family; Referring Provider Nurse Practitioner Family; Visit Provider Nurse Practitioner Family
DX: I87.2 Venous insufficiency (chronic) (peripheral) (principal); R60.0 Localized edema
CPT/HCPCS: 93971

== ENCOUNTER → 2024-11-17 | Outpatient (CLI) | payer MEDICARE, MEDICAID, SELFPAY ==
[2024-11-17 10:04] LABS: Basophils # (Auto) 0.0 Thou/mm3 (0.0-0.2); Basophils % (Auto) 1 % (0-2.5); Eosinophils # (Auto) 0.1 Thou/mm3 (0.0-0.5); Eosinophils % (Auto) 2 % (0-10); Hematocrit 43.9 % (36.0-46.0); Hemoglobin 14.0 g/dL (12.0-16.0); Immature Granulocytes Auto 0.01 Thou/mm3 (0.00-0.00); Lymphocytes # (Auto) 2.0 Thou/mm3 (1.0-4.8); Lymphocytes % (Auto) 37 % (10-50); Mean Corpuscular HGB Conc 31.9 g/dl (31.0-37.0); Mean Corpuscular Hemoglobin 29.9 pg (25.0-35.0); Mean Corpuscular Volume 94 fL (80-100); Monocytes # (Auto) 0.4 Thou/mm3 (0.0-0.8); Monocytes % (Auto) 7 % (0-12); Neutrophils # (Auto) 2.9 Thou/mm3 (1.8-7.7); Neutrophils % (Auto) 54 % (37-80); Nucleated Red Blood Cell # 0.00 Thou/mm3 (0.00-0.00); Nucleated Red Blood Cell % 0 /100 WBC (0); Platelet Count 296 Thou/mm3 (140-440); RDW Standard Deviation 43.2 fL (36.4-46.3); Red Blood Count 4.68 Miln/mm3 (4.00-5.20); White Blood Count 5.4 Thou/mm3 (3.6-11.0)
[2024-11-17 10:15] LABS: Glucose Estimated Average 103 mg/dL (80-131); Hemoglobin A1C 5.2 % Hgb (4.8-6.0)
[2024-11-17 10:29] LABS: Alanine Aminotransferase 9 U/L (10-49); Albumin, Serum 4.1 gm/dL (3.4-4.8); Albumin/Globulin Ratio 1.9 (1.2-2.2); Alkaline Phosphatase 82 U/L (46-116); Anion Gap 10 (7-16); Aspartate Amino Transferase 17 U/L (0-34); BUN/Creatinine Ratio 22 Ratio (12-20); Bilirubin,Total 0.2 mg/dL (0.3-1.2); Blood Urea Nitrogen 13 mg/dL (9-23); Calcium 9.8 mg/dL (8.3-10.6); Calcium (Corrected) 9.8 mg/dL (8.5-10.1); Carbon Dioxide 29.4 mMol/L (20.0-31.0); Cardiac Risk Estimate 3.1 RATIO (3.7-5.6); Chloride 106 mMol/L (98-107); Cholesterol 210 mg/dL (132-200); Creatinine (Component) 0.6 mg/dL (0.6-1.3); Globulin 2.2 gm/dL (2.3-3.5); Glucose 91 mg/dL (74-106); HDL Cholesterol 68 mg/dL (40-60); LDL Cholesterol,Calculated 131 mg/dL (0-130); Magnesium 1.6 mg/dL (1.6-2.6); Osmolality,Calculated 288 (275-295); Potassium 3.9 mMol/L (3.4-5.1); Sodium 145 mMol/L (136-145); Total Protein 6.3 gm/dL (5.7-8.2); Triglycerides 54 mg/dL (30-150); eGFR > 60 See Note
[2024-11-23 06:27] LABS: Vitamin B1 (Thiamine)* 15 nmol/L (8-30)
== END | disposition home or self-care (01) ==
LOC: COPL 09:00
PROVIDERS: PCP Family Medicine
DX: E78.5 Hyperlipidemia, unspecified (principal); M81.0 Age-related osteoporosis without current pathological fracture; F20.9 Schizophrenia, unspecified; Z79.899 Other long term (current) drug therapy
CPT/HCPCS: 36415; 80053; 80061; 81001; 82140; 82306; 82607; 82746; 83036; 83735; 84425; 85025

== ENCOUNTER → 2024-11-26 | Outpatient (CLI) | payer MEDICARE, MEDICAID, SELFPAY ==
[2024-11-26 16:49] LABS: Collection Type, Urine Clean Catch
[2024-11-26 17:40] LABS: Bacteria,Urine Rare; Bilirubin,Urine Negative (Negative); Blood,Urine Trace (Negative); Color,Urine Lt-Yellow (Lt Yel-Yel); Glucose, Urine Negative (Negative); Ketones,Urine Negative (Negative); Leukocyte Esterase,Urine Positive (Negative); Nitrite,Urine Negative (Negative); PH,Urine 6.5 (5.0-7.0); Protein,Urine Negative (Neg - Trace); RBC,Urine 5 /hpf (0-3); Specific Gravity,Urine 1.007 (1.001-1.035); Squamous Epithelial Cell,Urine < 1 /hpf (0-5); Urobilinogen,Urine Negative mg/dL (0.0-1.0); WBC,Urine 53 /hpf (0-5)
[2024-11-26 17:50] LABS: Clarity,Urine Hazy (Clear/Hazy)
== END | disposition home or self-care (01) ==
LOC: SLDO 16:45
PROVIDERS: PCP Nurse Practitioner Family; Referring Provider Nurse Practitioner Family; Visit Provider Nurse Practitioner Family
DX: Z79.899 Other long term (current) drug therapy (principal)
CPT/HCPCS: 81001; 87077; 87086; 87186

== ENCOUNTER → 2024-11-30 | Outpatient (CLI) | payer MEDICARE, MEDICAID, SELFPAY ==
--- NOTE | 2024-11-30 08:30 | XR_ITS ---
Examination: Retroperitoneal ultrasound, complete Technique: Multiple high resolution grayscale images of the retroperitoneum obtained, including kidneys and bladder. Exam date and time:November 30, 2024, 0859 hours INDICATIONS: History renal cystic disease FINDINGS: Right kidney 10.3 cm in 4 to 1.7 cm 27 x 22 mm upper pole right renal cyst. Left kidney 9.0 cm renal cortex 1.5 cm Upper pole 12 x 11 mm cyst lower pole 12 x 11 mm cyst Moderate renal scar formation Contracted urinary bladder IMPRESSION: Bilateral benign renal cysts.
== END | disposition home or self-care (01) ==
PROVIDERS: PCP Family Medicine; Referring Provider Nurse Practitioner Family; Visit Provider Nurse Practitioner Family
DX: N28.1 Cyst of kidney, acquired (principal)
CPT/HCPCS: 76770

== ENCOUNTER → 2024-12-03 | Outpatient (CLI) | payer MEDICARE, MEDICAID, SELFPAY ==
[2024-12-03 09:23] LABS: Ammonia < 10 uMol/L (11-32)
[2024-12-03 09:30] LABS: Folate 11.54 ng/mL (>5.38); Vitamin B12 608 pg/mL (211-911); Vitamin D 25 Hydroxy Total 37.2 ng/mL (7.3-40.2)
[2024-12-03 11:11] LABS: Collection Type, Urine Clean Catch
[2024-12-03 12:04] LABS: Bacteria,Urine 3+; Bilirubin,Urine Negative (Negative); Blood,Urine 1+ (Negative); Clarity,Urine Turbid (Clear/Hazy); Color,Urine Yellow (Lt Yel-Yel); Culture Indicated,Urine Contaminated; Glucose, Urine Negative (Negative); Ketones,Urine Trace (Negative); Leukocyte Esterase,Urine Positive (Negative); Nitrite,Urine Positive (Negative); PH,Urine 6.5 (5.0-7.0); Protein,Urine Negative (Neg - Trace); RBC,Urine 22 /hpf (0-3); Specific Gravity,Urine 1.023 (1.001-1.035); Squamous Epithelial Cell,Urine 13 /hpf (0-5); Urobilinogen,Urine Negative mg/dL (0.0-1.0); WBC,Urine 443 /hpf (0-5)
== END | disposition home or self-care (01) ==
PROVIDERS: PCP Family Medicine; Referring Provider Nurse Practitioner Family; Visit Provider Nurse Practitioner Family
DX: E78.5 Hyperlipidemia, unspecified (principal); M81.0 Age-related osteoporosis without current pathological fracture; F20.9 Schizophrenia, unspecified; Z79.899 Other long term (current) drug therapy
CPT/HCPCS: 36415; 81001; 82140; 82306; 82607; 82746

== ENCOUNTER → 2025-01-18 | Outpatient (CLI) | payer MEDICARE, MEDICAID, SELFPAY ==
[2025-01-18 09:47] LABS: Magnesium 2.0 mg/dL (1.6-2.6)
== END | disposition home or self-care (01) ==
PROVIDERS: PCP Family Medicine; Referring Provider Nurse Practitioner Family; Visit Provider Nurse Practitioner Family
DX: E83.42 Hypomagnesemia (principal)
CPT/HCPCS: 36415; 83735

== ENCOUNTER → 2025-04-06 | Outpatient (CLI) | payer MEDICARE, MEDICAID, SELFPAY ==
[2025-04-06 12:17] LABS: Vitamin D 25 Hydroxy Total 43.8 ng/mL (7.3-40.2)
[2025-04-06 12:21] LABS: Cardiac Risk Estimate 2.8 RATIO (3.7-5.6); Cholesterol 164 mg/dL (132-200); HDL Cholesterol 58 mg/dL (40-60); LDL Cholesterol,Calculated 92 mg/dL (0-130); Magnesium 2.3 mg/dL (1.6-2.6); Triglycerides 71 mg/dL (30-150)
== END | disposition home or self-care (01) ==
PROVIDERS: PCP Family Medicine; Referring Provider Student in an Organized Health Care Education/Training Program; Visit Provider Student in an Organized Health Care Education/Training Program
DX: N39.0 Urinary tract infection, site not specified (principal); E78.5 Hyperlipidemia, unspecified; M81.0 Age-related osteoporosis without current pathological fracture; E83.42 Hypomagnesemia
CPT/HCPCS: 36415; 80061; 81001; 82306; 83735